=== PATIENT | female | born 1945 | race Caucasian/White ===

== ENCOUNTER 2016-12-27 15:07 | Inpatient (IN) ==
[2016-12-27 15:37] LABS: Basophils % 0.3 %; Eosinophils # 0.2 K/mcL (0.0-0.6); Hematocrit 37.7 % (35.3-44.9); Immature Granulocytes % 0.2 % (0-4); Lymphocytes # 2.2 K/mcL (0.6-4.6); Lymphocytes % 36.2 %; Mean Corpuscular HGB Conc 34.5 g/dL (31.6-35.5); Mean Corpuscular Hemoglobin 29.5 pg (28.0-33.3); Mean Corpuscular Volume 85.7 fL (83.0-100.0); Mean Platelet Volume 10.2 fL (9.4-12.4); Monocytes # 0.5 K/mcL (0.0-1.3); Monocytes % 8.1 %; Neutrophils # 3.2 K/mcL (1.6-8.9); Platelet Count 153 K/mcL (140-400); Red Cell Distribution Width 12.1 % (11.5-14.5); Segmented Neutrophils % 52.2 %
[2016-12-27] MEDS ORDERED: *HR* Ticagrelor 90 MG TABLET PO ONE (15:38)
--- NOTE | 2016-12-27 15:38 | Emergency Department Note ---
Disposition Clinical Impression: ST elevation myocardial infarction (STEMI) Qualifiers: Involved coronary artery: LAD coronary artery Qualified Code(s): I21.02 - ST elevation (STEMI) myocardial infarction involving left anterior descending coronary artery Disposition: Admitted As Inpatient Condition: Fair Chest Pain HPI - General Chief Complaint: ED Chest Pain Stated Complaint: chest pain Time Seen by Provider: 12/27/16 15:16 Source: patient Limitations: no limitations, age Vital Signs Reviewed: Yes Nursing Notes Reviewed: Yes - History of Present Illness Pt complaint: chest pain Onset (ago): hour(s) (2) Duration: constant Onset: during rest Pain Location: substernal Severity scale (1-10): 9 Quality: heaviness Pain Radiation: LUE, neck, jaw/teeth Improves with: nothing Worsens with: nothing Associated symptoms: Reports: nausea, sense of impending doom Treatments prior to arrival chest pain: aspirin - Related Data Home Medications Medication Instructions Recorded Confirmed Albuterol Neb [Proventil Neb] 2.5 mg IH Q6H PRN 12/27/16 12/27/16 Albuterol Sulfate [Proair Hfa] 2 puff IH Q4-6H PRN 12/27/16 12/27/16 Budesonide/Formoterol 80/4.5 2 puff IH BID PRN 12/27/16 12/27/16 [Symbicort 80/4.5] Bupropion HCl [Wellbutrin Xl] 300 mg PO DAILY 12/27/16 12/27/16 Dicyclomine [Bentyl] 40 mg PO QID 12/27/16 12/27/16 Fluticasone Propionate Nasal 50 mcg NS DAILY PRN 12/27/16 12/27/16 [Flonase] Levothyroxine [Synthroid] 224 mcg PO QAM 12/27/16 12/27/16 Loratadine [Claritin] 10 mg PO DAILY PRN 12/27/16 12/27/16 Omeprazole [PriLOSEC] 20 mg PO DAILY PRN 12/27/16 12/27/16 Rivaroxaban [Xarelto] 20 mg PO DAILY 12/27/16 12/27/16 Sotalol [Betapace] 80 mg PO Q12HR 12/27/16 12/27/16 Venlafaxine XR (24 HR) [Effexor XR] 150 mg PO DAILY 12/27/16 12/27/16 Zolpidem [Ambien] 5 mg PO HS 12/27/16 12/27/16 Allergies Allergy/AdvReac Type Severity Reaction Status Date / Time Amoxicillin Allergy Rash Verified 10/12/15 09:03 clavulanic acid Allergy Rash Verified 10/12/15 09:03 [From Augmentin] [id number] Reductase Allergy Rash Verified 10/12/15 09:03 Inhibitor [Statins] Sulfa (Sulfonamide Allergy Rash Verified 10/12/15 09:03 Antibiotics) amlodipine [From Norvasc] AdvReac Rash Verified 10/12/15 09:03 latex AdvReac Rash Verified 10/12/15 09:03 All systems ED: reviewed and negative except as stated. Constitutional: Denies: fever, chills Respiratory: Denies: cough Neurological: Denies: headache Chest Pain PMH - Past Medical History Medical history: Reports: asthma, atrial fibrillation, diabetes, GERD, hypertension, thyroid disease Surgical history: Reports: appendectomy, cataract, cholecystectomy, orthopedic, other, sinus surgery, RAE/BSO Psychiatric history: Reports: anxiety, depression - Social History Smoking Status: Current every day smoker Alcohol use: Reports: none Drug use: Reports: none Physical Exam - General Limitations: no limitations General appearance: alert, in distress - Head Head exam: atraumatic, normocephalic, normal inspection - Eye Eye exam: Present: normal appearance, PERRL, EOMI - Expanded Eye Exam Pupils: Left: reactive - ENT ENT exam: normal exam, normal oropharynx, mucous membranes moist - Expanded ENT Exam External ear exam: Present: normal external inspection Mouth exam: Present: normal external inspection Teeth exam: Present: normal inspection Throat exam: Present: normal inspection - Neck Neck exam: Present: normal inspection, full ROM, trachea midline - Chest Chest inspection: Present: normal inspection, symmetric chest wall rise - Respiratory Respiratory exam: Present: normal lung sounds bilaterally - Cardiovascular Cardiovascular exam: Present: tachycardia, irregular rhythm - Abdominal Exam Abdominal exam: Present: soft, Non-Tender. Absent: tenderness, distention, guarding, rebound, rigidity - Extremities Exam Extremities exam: Present: normal inspection, full ROM. Absent: tenderness, pedal edema - Expanded Upper Extremity Exam Shoulder exam: Present: normal inspection, full ROM Arm exam: Present: normal inspection, full ROM Elbow exam: Present: normal inspection, full ROM Forearm/Wrist exam: Present: normal inspection, full ROM Hand exam: Present: normal inspection, full ROM Vascular exam: Normal: capillary refill, radial pulse - Expanded Lower Extremity Exam Hip/Pelvis exam: Present: normal inspection, full ROM Upper leg exam: Present: normal inspection, full ROM Knee exam: Present: normal inspection, full ROM Lower leg exam: Present: normal inspection, full ROM Ankle exam: Present: normal inspection, full ROM Foot/toe exam: Present: normal inspection, full ROM Neurovascular/Tendon exam: Absent: motor deficit, sensory deficit, tendon deficit - Back Exam Back exam: Present: normal inspection, full ROM. Absent: tenderness - Neurological Exam Neurological exam: Present: alert, oriented X3 - Expanded Neurological Exam Patient oriented to: Present: person, place, time Coma Scale Eye Opening: Spontaneous Coma Scale Motor Response: Obeys Commands Coma Scale Verbal Response: Oriented Coma Scale Total: 15 - Psychiatric Psychiatric exam: Present: normal affect, normal mood - Skin Skin exam: Present: warm, dry, intact, normal color Course Vital Signs Temperature 97.7 F 12/27/16 15:10 Pulse Rate 143 12/27/16 15:10 Respiratory Rate 16 12/27/16 15:10 Blood Pressure 154/72 12/27/16 15:10 O2 Sat by Pulse Oximetry 96 12/27/16 15:10 Temperature 96.9 F L 12/28/16 11:53 Pulse Rate 54 12/28/16 11:46 Respiratory Rate 12 12/28/16 11:46 Blood Pressure 163/73 12/28/16 11:46 O2 Sat by Pulse Oximetry 97 12/28/16 11:46 Oxygen Delivery Oxygen Delivery Nasal Cannula Chest Pain - Differential Diagnosis Likely: stable angina, unstable angina pectoris, atypical chest pain, st elevation myocardial infraction, chest pain - Medical Records Medical records reviewed: Yes I reviewed the patient's medical records. - Lab Data Lab results reviewed: Yes I reviewed the patient's lab results. Result diagrams: 12/28/16 03:13 12/28/16 03:13 Lab Results 12/27/16 12/27/16 12/27/16 Range/Units 15:20 15:20 15:20 WBC 6.1 (4.3-11.1) K/mcL RBC 4.40 (3.82-4.97) M/mcL Hgb 13.0 (11.5-15.4) g/dL Hct 37.7 (35.3-44.9) % MCV 85.7 (83.0-100.0) fL MCH 29.5 (28.0-33.3) pg MCHC 34.5 (31.6-35.5) g/dL RDW 12.1 (11.5-14.5) % Plt Count 153 (140-400) K/mcL MPV 10.2 (9.4-12.4) fL Immature Gran % 0.2 (0-4) % Seg Neutrophils % 52.2 % Lymphocytes % 36.2 % Monocytes % 8.1 % Eosinophils % 3.0 % Basophils % 0.3 % Neutrophils # 3.2 (1.6-8.9) K/mcL Lymphocytes # 2.2 (0.6-4.6) K/mcL Monocytes # 0.5 (0.0-1.3) K/mcL Eosinophils # 0.2 (0.0-0.6) K/mcL Basophils # 0.0 (0.0-0.2) K/mcL PT 13.3 H (9.4-12.1) Seconds INR 1.2 APTT 31.9 (26.0-36.0) Seconds Sodium 141 (136-145) mEq/L Potassium 3.7 (3.5-4.5) mEq/L Chloride 107 (98-109) mEq/L Carbon Dioxide 24 (19-29) mEq/L BUN 11 (7-20) mg/dL Creatinine 0.82 (0.57-1.11) mg/dL Est GFR ( Amer) > 60 (> 60) Est GFR (Non-Af Amer) > 60 (> 60) BUN/Creatinine Ratio 13 (6-26) Glucose 193 H (70-99) mg/dL Calculated Osmolality 297 (280-300) Calcium 9.5 (8.6-10.8) mg/dL Troponin I (0-0.03) ng/mL 12/27/16 Range/Units 15:20 WBC (4.3-11.1) K/mcL RBC (3.82-4.97) M/mcL Hgb (11.5-15.4) g/dL Hct (35.3-44.9) % MCV (83.0-100.0) fL MCH (28.0-33.3) pg MCHC (31.6-35.5) g/dL RDW (11.5-14.5) % Plt Count (140-400) K/mcL MPV (9.4-12.4) fL Immature Gran % (0-4) % Seg Neutrophils % % Lymphocytes % % Monocytes % % Eosinophils % % Basophils % % Neutrophils # (1.6-8.9) K/mcL Lymphocytes # (0.6-4.6) K/mcL Monocytes # (0.0-1.3) K/mcL Eosinophils # (0.0-0.6) K/mcL Basophils # (0.0-0.2) K/mcL PT (9.4-12.1) Seconds INR APTT (26.0-36.0) Seconds Sodium (136-145) mEq/L Potassium (3.5-4.5) mEq/L Chloride (98-109) mEq/L Carbon Dioxide (19-29) mEq/L BUN (7-20) mg/dL Creatinine (0.57-1.11) mg/dL Est GFR ( Amer) (> 60) Est GFR (Non-Af Amer) (> 60) BUN/Creatinine Ratio (6-26) Glucose (70-99) mg/dL Calculated Osmolality (280-300) Calcium (8.6-10.8) mg/dL Troponin I 0.01 (0-0.03) ng/mL - Radiology Data Radiology results reviewed: Yes I reviewed the patient's radiology results. - EKG Data EKG attestation: Yes I reviewed and interpreted this EKG. Rate: tachycardia Rhythm: A.Fib ST segment depression in: v4, v5 Interpretation: acute MD Critical Care Time Critical Care Time: Yes Total Critical Care Time: 35 Attestation: Critical care performed: Time is exclusive of separately billable procedures. Time includes: direct patient care, patient reassessment, coordination of patient care, interpretation of data (laboratory data, radiology data, and respiratory data), review of patient's medical records, medical consultation and documentation of patient care. Procedures included in critical care time: Procedures excluded from critical care time:
[2016-12-27] MEDS ORDERED: Verapamil 5 MG/2 ML VIAL ONE (15:39)
[2016-12-27] MEDS ORDERED: *HR* Heparin 5,000 UNIT/ML VIAL IVP ONE (15:39)
[2016-12-27] MEDS ORDERED: *HR* Heparin 10,000 UNIT/10 ML VIAL ONE (15:40)
[2016-12-27] MEDS ORDERED: Nitroglycerin 1,000 MCG/10 ML VIAL IV ONE (15:40)
[2016-12-27] MEDS ORDERED: Heparin 1,000 UNITS/500 mL NS 500 ML ONE (15:40)
[2016-12-27] MEDS: Nitroglycerin 0.4 MG TAB.SUBL SL PRN ×2 (15:40→15:45)
[2016-12-27] MEDS ORDERED: 0.9 % Sodium Chloride 1,000 ML ONE ×2 (15:40→15:44)
[2016-12-27 15:43] LABS: INR 1.2; Prothrombin Time 13.3 Seconds (9.4-12.1)
[2016-12-27 15:45] LABS: Activated Partial Thrombo Time 31.9 Seconds (26.0-36.0)
[2016-12-27 15:50] LABS: BUN/Creatinine Ratio 13 (6-26); Blood Urea Nitrogen 11 mg/dL (7-20); Calcium 9.5 mg/dL (8.6-10.8); Carbon Dioxide 24 mEq/L (19-29); Chloride 107 mEq/L (98-109); Glucose 193 mg/dL (70-99); Osmolality,Calculated 297 (280-300); Potassium 3.7 mEq/L (3.5-4.5); Sodium 141 mEq/L (136-145); eGFR For African Americans > 60 (> 60); eGFR For Non-African Americans > 60 (> 60)
[2016-12-27] MEDS ORDERED: *HR* Midazolam HCl 2 MG/2 ML VIAL ONE (15:59)
[2016-12-27] MEDS ORDERED: *HR* FentaNYL (PF) 100 MCG/2 ML VIAL ONE (16:00)
--- NOTE | 2016-12-27 16:02 | Pre-Sedation Evaluation ---
Pre-sedation evaluation - Pre-sedation checklist Date of procedure: 12/27/16 Procedure: [facility] Recent Vitals: Last Vital Signs Temp 97.7 F 12/27/16 15:10 Pulse 111 12/27/16 15:45 Resp 22 12/27/16 15:52 BP 128/86 12/27/16 15:52 Pulse Ox 98 12/27/16 15:45 H&P (including ROS) documented in medical record: Yes Previous reaction to sedatives/anesthetics: No Dietary Status: NPO after Midnight Dentition: dentures removed ASA Classification *see protocol: CLASS II-Mild systemic disease, E-EMERGENCY- Add to any of the above to indicate emergent Plan of Care: Pt appropriate candidate for procedure/moderate/conscious sedation , Risks/benefits of procedure/sedation discussed w/ patient/family
--- NOTE | 2016-12-27 16:43 | Cardiology History & Physical ---
Date of Encounter: 12/27/16 Time of Encounter: 16:40 Assessment and Plan (1) ST elevation myocardial infarction (STEMI) Status: Acute The assessment and plan as outlined above was discussed with the patient and/or family members who expressed understanding and agreement. All questions were answered. Qualifiers: Involved coronary artery: LAD coronary artery Qualified Code(s): I21.02 - ST elevation (STEMI) myocardial infarction involving left anterior descending coronary artery History of Present Illness Chief complaint: chest pain HPI: Ms. Kong is a 71 year old female with history of PAF on sotalol and xarelto presents with sudden onset severe retrosternal chest pressure radiating into her jaw and left arm associated with dyspnea. She presented to ED with finding of anterior current of injury with no improvement of symptoms with aspirin and NTG. She was emergently taken to the cardiac cath rn. Past Med Surg Social Fam HX - Past Medical History Medical history: asthma, atrial fibrillation, diabetes, GERD, hypertension, thyroid disease Psychiatric history: anxiety, depression - Past Surgical History Surgical History: appendectomy, cataract, cholecystectomy, orthopedic, other, sinus surgery, RAE/BSO - Social History Smoking Status: Current every day smoker Smokeless Tobacco Status: No Alcohol use: none Drug use: none Medications and Allergies Allergies Amoxicillin Allergy (Verified 10/12/15 09:03) Rash clavulanic acid [From Augmentin] Allergy (Verified 10/12/15 09:03) Rash [id number] Reductase Inhibitor [Statins] Allergy (Verified 10/12/15 09:03) Rash Sulfa (Sulfonamide Antibiotics) Allergy (Verified 10/12/15 09:03) Rash amlodipine [From Norvasc] Adverse Reaction (Verified 10/12/15 09:03) Rash latex Adverse Reaction (Verified 10/12/15 09:03) Rash All Systems Review: A 10-system review of systems was performed and is negative for pertinent findings except as documented above in the HPI. Physical Examination Vital Signs, Last 4 Hours Temp Pulse Resp BP Pulse Ox 12/27/16 15:52 22 128/86 12/27/16 15:45 111 22 128/86 98 12/27/16 15:38 96 12/27/16 15:29 106 146/92 12/27/16 15:10 97.7 F 143 16 154/72 96 Results 12/27/16 15:20 12/27/16 15:20 Lab Results 12/27/16 12/27/16 12/27/16 15:20 15:20 15:20 WBC 6.1 Hgb 13.0 Hct 37.7 Plt Count 153 INR 1.2 APTT 31.9 Sodium 141 Potassium 3.7 Chloride 107 Carbon Dioxide 24 BUN 11 Creatinine 0.82 Glucose 193 H Calcium 9.5 Troponin I 12/27/16 15:20 WBC Hgb Hct Plt Count INR APTT Sodium Potassium Chloride Carbon Dioxide BUN Creatinine Glucose Calcium Troponin I 0.01
--- NOTE | 2016-12-27 16:57 | Invasive Diagnostic Lab Proc ---
Name: Bruna Kong Date of Study: 12/27/2016 Date: 1945 Ht: 68.1in Medical Record#: [id number] Age: 71 Wt: 174.17lb Gender: Female BSA: 1.93 Order #: [id number] BMI: 26.4 Physicians Procedure Physician: Thomas Schilling MD, [facility] Referring MD: Referring MD: Staff Name Position Time In Sites, Kenia RT (R) Monitor 03:50 PM Kenia Liz RT (R) Scrub 03:50 PM Aye Edge RN Stonework Supervisor 03:50 PM Veena Smith RN Nurse 03:51 PM Indications Indication STEMI Procedures Performed Procedure PRQ CARD REVASC ID 1 VSL L HRT ARTERY/VENTRICLE ANGIO Pre-Procedure Checklist Informed consent is complete signed and on chart. H\\T\\P is on chart. ID band is on and ID verified with patient. Patient NPO for procedure The procedure was described for the patient and questions were answered. Blood Pressure: 163/65 ECG is on chart. Rhythm: Atrial Fibrillation Plan of Care Patient will tolerate the procedure without complications. Adequate level of comfort will be maintained. Hemodynamics will remain stable Patient will recover from procedure without complications. Respiratory function will be maintained. Cardiac rhythm will remain stable. Patient temperature will be maintained. Patient and/or family have verbalized understanding of the procedure. Patient Education Chief Complaint/Reason for Test: Cardiac Cath Developmental Category: Geriatric (65+ years) Developmentally Appropriate for Age: Yes Learning Barriers: None Education Needs: Procedure Education Method: Verbal Information Taught: Cardiac Cath Educational Evaluation: Able to repeat information Intravenous Access Time IV Size Location DC'd Fluid/Drip Rate Units RN 03:49 PM 20g 1 1/4" Patent On Arrival Rt Antecubital 0.9NaCl 25 ml/hr Aye Edge RN 03:56 PM 18g 1 1/4" Patent On Arrival Rt Wrist Allergies EGGS AUGMENTIN SULFA, LATEX Xsusxjn-Wqu-Vbw Reductase Inhibitor clavulanic acid Amoxicillin amlodipine Vital Signs Time BP (mmHg) HR (bpm) O2 Sat. RR (bpm) LOC 03:57 PM 114 / 55 122 98 % 7 5 = Fully awake and oriented or at pre-proc level 03:58 PM 114 / 55 130 % 12 04:03 PM 163 / 65 125 97 % 18 04:08 PM 124 / 101 119 99 % 11 04:13 PM 111 / 73 112 93 % 17 04:18 PM 107 / 70 110 96 % 15 04:23 PM 143 / 67 114 98 % 14 04:28 PM 147 / 73 95 98 % 18 04:33 PM 113 / 88 107 98 % 12 04:38 PM 127 / 80 104 97 % 25 Procedural Medications Time Medication Dose Units Method Given By 03:55 PM 0.9NaCl 25 ml/hr Intravenous 04:01 PM Oxygen 2 L/min nasal cannula Aye Edge RN 04:06 PM Versed 2 mg Intravenous Aye Edge RN 04:06 PM Fentanyl 50 mcg Intravenous Aye Edge RN 04:07 PM Lidocaine 2% 1 ml Subcutaneous Thomas Schilling MD, FACC 04:09 PM Nitroglycerin 200 mcg Verapamil 2.5 mg Intraarterial Thomas Schilling MD, FACC 04:27 PM Nitroglycerin 200 mcg Intracoronary Thomas Schilling MD 04:34 PM Nitroglycerin 200 mcg Intracoronary Thomas Schilling MD ASA Classification: CLASS II- Mild systemic disease (i.e. well-controlled diabetes, hypertension, asthma, cigarette smoking) Dyan Score Preprocedure Postprocedure Activity 2- Moves 4 extremities sustained head lift Activity 2- Moves 4 extremities sustained head lift Circulation 2- SBP +/= 20 points of pre-anesthetic level Circulation 2- SBP +/= 20 points of pre-anesthetic level Consciousness 2- Awake and alert oriented x 3 Consciousness 2- Awake and alert oriented x 3 O2 Saturation 2- Able to maintain O2 satruation of 92% on room air O2 Saturation 2- Able to maintain O2 satruation of 92% on room air Respiratory 2- Able to deep breathe and cough well Respiratory 2- Able to deep breathe and cough well Total Score 10 Total Score 10 Contrast Agent: Isovue Diagnostic Contrast: 135 ml Total Contrast: 135 ml Fluoro Dose: 480 mGy Activated Clotting Time Time Seconds to Clot 04:28 PM 366 Procedure Log Time Note Enter By 03:45 PM CathStat 03:50 PM Kenia Cordova RT (R) Position: Monitor Time in: 15:50 tsites 03:50 PM Kenia Liz RT (R) Position: Scrub Time in: 15:50 tsites 03:51 PM Aye Edge RN Position: Stonework Supervisor Time in: 15:50 tsites 03:51 PM Sarah, Veena RN Position: Nurse Time in: 15:51 tsites 03:51 PM Patient charges- Angio tray pack, Navilyst 3mm J, Pulse Oximetry and ACIST tubing and transducer tsites 03:54 PM Pt arrived to laborer cook house 2 at 15:54 tsites 03:55 PM Patient arrived at 15:55 with 0.9NaCl Intravenous drip @ 25 ml/hr tsites 03:57 PM Vitals capture started with the following parameters, Patient=Adult, Interval=5 min, Initial Ulpdescp=956 mmHg, Deflation Rate=5 mmHg, Cuff placed on Left Arm 03:58 PM PM=245 bpm, OSVF=430/55 mmhg, Resp=12 B/min, Comment=Afib 03:59 PM Case Delayed No tsites 04:01 PM Hair removed from procedure site in procedure lab using clippers. Right wrist, right groin prepped with Chloraprep by Kenia Cordova (Micaela) then patient draped. Skin intact. tsites 04:01 PM Physican responded and notified patient is ready 16:01 tsites 04:01 PM ASA Class CLASS II- Mild systemic disease (i.e. well-controlled diabetes, hypertension, asthma, cigarette smoking) tsites 04:01 PM Time: 16:01 Oxygen on at 2 L/min per nasal cannula by Aye Edge RN tsites 04:03 PM PU=508 bpm, ENVL=545/65 mmhg, SpO2=97.0 %, Resp=18 B/min 04:04 PM Recorded ECG: JJ=184 Condition=Condition 1 04:05 PM Pressure channel 1 zeroed. 04:06 PM Time: 16:06 Versed 2 mg Intravenous Given by Aye Edge RN tsites 04:07 PM Time: 16:06 Fentanyl 50 mcg Intravenous Given by Aye Edge RN tsites 04:07 PM Time out performed according to hospital policy tsites 04:07 PM Time: 16:07 1 ml Lidocaine 2% to right radial Subcutaneous Given by Thomas Schilling MD, [facility] tsites 04:07 PM Procedure start 16:07 tsites 04:08 PM TZ=114 bpm, SFHW=781/101 mmhg, SpO2=99.0 %, Resp=11 B/min, Comment=Afib 04:08 PM Access obtained by percutaneous puncture. 5Fr 10cm Terumo Glidesheath sheath placed in right Radial artery. [id number] tsites 04:09 PM Time: 16:09 Patient given 200 mcg Nitroglycerin, and 2.5 mg Verapamil Intraarterial by Thomas Schilling MD, [facility] tsites 04:10 PM Clinical Presentation: STEMI or equivalent tsites 04:11 PM 5Fr TIG catheter inserted over the wire [facility] tsites 04:11 PM 0.035 260cm Navilyst 3mmJ wire [id number] tsites 04:11 PM LCA angiography performed in multiple views. tsites 04:11 PM Recorded Pressure: Ao, HB=519, Condition=Condition 1 (Aorta) Ao 91/65/77 04:12 PM RCA angiography performed in multiple views. tsites 04:12 PM Recorded Pressure: Ao, UC=172, Condition=Condition 1 (Aorta) Ao 37/21/29 04:12 PM wire reinserted catheter removed tsites 04:13 PM Coronary Dominance: right tsites 04:13 PM WI=456 bpm, YSGG=617/73 mmhg, SpO2=93.0 %, Resp=17 B/min, Comment=Afib 04:13 PM Lesion found in Proximal LAD. Pre Stenosis: 100 Pre RUDDY Flow: 0: No Flow/No perfusion tsites 04:13 PM Lesion found in Mid RCA. Pre Stenosis: 40 Pre RUDDY Flow: tsites 04:13 PM Proximal Left Anterior Descending Coronary Artery with 100% stenosis. If graft is supplying this territory, 0 % stenosis. tsites 04:14 PM Right Coronary, Right Posterior Descending Arteries with Right Posterolateral and Acute Marginal branches with 40 % stenosis. If graft is supplying this area, 0 % stenosis tsites 04:14 PM PCI Status Emergency tsites 04:14 PM PCI Indication: Immediate PCI for STEMI tsites 04:14 PM PCI lesion in Proximal LAD. tsites 04:14 PM Inflation device was opened. tsites 04:14 PM 6Fr RBL 3.5 Convey guide catheter was used to cannulate the PCI vessel successfully. reused? No tsites 04:14 PM .014 PT Graphix 182cm guide wire across target lesion- successful. reused? No tsites 04:15 PM Coronary Dominance: Co-dominant tsites 04:16 PM 2.0 mm x 20 mm Emerge Monorail balloon across target lesion- successful. reused? No tsites 04:18 PM Balloon inflated @ 8 baldomero for 10 seconds tsites 04:18 PM Balloon inflated @ 10 baldomero for 12 seconds tsites 04:18 PM Pressure channel 1 zeroed. 04:18 PM VR=775 bpm, RYOF=140/70 mmhg, SpO2=96.0 %, Resp=15 B/min 04:19 PM Recorded Pressure: Ao, HR=96, Condition=Condition 1 (Aorta) Ao 120/90/103 04:19 PM Act drawn tsites 04:19 PM Balloon inflated @ 8 baldomero for 10 seconds tsites 04:20 PM Balloon inflated @ 14 baldomero for 5 seconds tsites 04:20 PM Balloon inflated @ 14 baldomero for 12 seconds tsites 04:21 PM Balloon inflated @ 14 baldomero for 7 seconds tsites 04:22 PM Balloon catheter removed intact. tsites 04:23 PM LJ=223 bpm, GOBG=041/67 mmhg, SpO2=98.0 %, Resp=14 B/min, Comment=Afib 04:24 PM act drawn tsites 04:25 PM 2.25mm x 38mm Synergy drug-eluting stent across target lesion- successful Lot #[id number] tsites 04:26 PM Stent deployed @ 11 baldomero for 15 seconds tsites 04:27 PM Time: 16:27 Nitroglycerin 200 mcg Intracoronary Given by Thomas Schilling MD tsites 04:28 PM At 16:28 the ACT was 366 seconds. tsites 04:28 PM HR=95 bpm, JPGU=044/73 mmhg, SpO2=98.0 %, Resp=18 B/min, Comment=Afib 04:29 PM Stent delivery system removed intact. tsites 04:30 PM 2.25mm x 12mm Synergy drug-eluting stent across target lesion- successful Lot #[id number] tsites 04:33 PM Stent deployed @ 11 baldomero for 15 seconds tsites 04:33 PM EZ=275 bpm, KDUM=852/88 mmhg, SpO2=98.0 %, Resp=12 B/min 04:33 PM Stent balloon reinflated @ 11 baldomero for 4 seconds tsites 04:34 PM Time: 16:34 Nitroglycerin 200 mcg Intracoronary Given by Thomas Schilling MD tsites 04:35 PM Guide wire removed intact. tsites 04:35 PM Stent delivery system removed intact. tsites 04:35 PM Lesion found in Mid Circumflex. Pre Stenosis: 65 Pre RUDDY Flow: tsites 04:36 PM Circumflex, Obtuse Marginal, Left Posterior Descending, and Left Posterolateral Coronary Arteries with 65 % stenosis. If graft is supplying this area, 0 % stenosis tsites 04:36 PM Guide catheter removed intact. tsites 04:36 PM 5Fr Pigtail catheter inserted over the wire [facility] tsites 04:36 PM Catheter selectively placed in left ventricle tsites 04:37 PM Recorded Pressure: LV, RS=550, Condition=Condition 1 (Left Ventricle) LV 134/15/26 04:37 PM Bolus angiogram of left Ventricle complete: 10 ml/sec for a total of 30 mls tsites 04:38 PM Recorded Pressure: LV, Ao, QY=309, Condition=Condition 1 (Left Ventricle) LV 137/17/51, (Aorta) Ao 152/88/115 04:38 PM RT=840 bpm, OGXR=083/80 mmhg, SpO2=97.0 %, Resp=25 B/min 04:38 PM Catheter removed tsites 04:39 PM Procedure completed at 16:39 tsites 04:39 PM Sign out completed: Radiation Dose 480 mGy Fluoro Time: 7.5 Isovue 370 - 500ml contrast 135 ml given by Thomas Schilling MD, [facility]. Complications: NoneCardiac Rehab Consult needed: YesConfirmed administered medications: Yes tsites 04:39 PM Isovue 370 - 500ml,1 Bottle(s) used. tsites 04:39 PM Arterial sheath pulled, Vasc Band closure device used and was Successful S/N. tsites 04:40 PM 14 ml air in Vasc Band. tsites 04:40 PM Post ECG Atrial Fibrillation tsites 04:40 PM Post Blood Pressure 127/80 tsites 04:40 PM 16:40 Post Pulses Bilateral DP \\T\\ PT 2+ tsites 04:40 PM Information taught Cardiac Cath and PCI tsites 04:40 PM Education needs Procedure, Plan of Care, and Responsibilities of Patient in Care tsites 04:40 PM Learning barriers :None tsites 04:41 PM Education Methods Verbal tsites 04:41 PM Education evaluation Able to repeat information tsites 04:41 PM Site status No bleeding/hematoma - Rt Wrist as reported by Kenia Liz RT (R) at 16:41 tsites 04:41 PM Plavix, Effient or Brilinta given Yes in ER tsites 04:43 PM Patient out of room: 16:41 tsites 04:43 PM Complications: None tsites 04:46 PM Report given to jewel VARMA Pt taken to ICU Room #9. 16:45 tsites 04:46 PM Delay to floor No tsites Complications Complication None None Hemodynamics Pressures Site Systolic/A Wave Diastolic/V Wave Mean AO 91 65 77 AO 37 21 29 AO 120 90 103 LV 134 15 26 LV 137 17 51 AO 152 88 115 Post Procedure Information Blood Pressure: 127/80 mmHg Rhythm: Atrial Fibrillation Post procedural instructions were given Closure Device Time Device Success/Fail 12/27/2016 4:46:00 PM Mechanical Compression Successful Site Checks Time Location Status Staff Sheath In? Note 04:41 PM Rt Wrist No bleeding/hematoma Kenia Liz RT (R) Pulses Time Site Pre-Procedure Post-Procedure Note 12/27/2016 3:55:00 PM Bilateral DP \\T\\ PT 1+ 12/27/2016 3:56:00 PM Rt Radial 2+ 4:40:00 PM Bilateral DP \\T\\ PT 2+ Updated by Kenia Cordova RT (R) on 12/27/2016 4:52:44 PM Kenia Cordova RT electronically signed on 12/27/2016 4:53:14 PM with status of Final
[2016-12-27] MEDS ORDERED: *HR* Atropine Sulfate 1 MG/10 ML SYRINGE ONE (19:37)
[2016-12-27] MEDS ORDERED: Budesonide/Formoterol 80/4.5 MDI IH PRN (20:42)
[2016-12-27] MEDS ORDERED: Albuterol 2.5 MG/3 ML NEBULIZER IH PRN (20:55)
[2016-12-28 03:35] LABS: Basophils % 0.5 %; Eosinophils # 0.2 K/mcL (0.0-0.6); Eosinophils % 3.2 %; Hematocrit 35.7 % (35.3-44.9); Hemoglobin 12.2 g/dL (11.5-15.4); Immature Granulocytes % 0.2 % (0-4); Lymphocytes # 2.4 K/mcL (0.6-4.6); Lymphocytes % 38.3 %; Mean Corpuscular HGB Conc 34.2 g/dL (31.6-35.5); Mean Corpuscular Hemoglobin 29.3 pg (28.0-33.3); Mean Corpuscular Volume 85.8 fL (83.0-100.0); Mean Platelet Volume 10.3 fL (9.4-12.4); Monocytes # 0.5 K/mcL (0.0-1.3); Monocytes % 8.5 %; Neutrophils # 3.1 K/mcL (1.6-8.9); Platelet Count 144 K/mcL (140-400); Red Blood Count 4.16 M/mcL (3.82-4.97); Red Cell Distribution Width 12.1 % (11.5-14.5); Segmented Neutrophils % 49.3 %
[2016-12-28 03:46] LABS: BUN/Creatinine Ratio 13 (6-26); Blood Urea Nitrogen 10 mg/dL (7-20); Calcium 8.8 mg/dL (8.6-10.8); Carbon Dioxide 23 mEq/L (19-29); Chloride 108 mEq/L (98-109); Glucose 132 mg/dL (70-99); Osmolality,Calculated 291 (280-300); Potassium 3.7 mEq/L (3.5-4.5); Sodium 140 mEq/L (136-145); eGFR For African Americans > 60 (> 60); eGFR For Non-African Americans > 60 (> 60)
[2016-12-28] MEDS: Aspirin 81 MG TAB.CHEW PO SCH (07:58)
[2016-12-28] MEDS: Venlafaxine XR (24 HR) 150 MG CAP.ER.24H PO SCH (07:59)
[2016-12-28] MEDS: BuPROPion XL (24 HR) 150 MG TABLET PO SCH (07:59)
--- NOTE | 2016-12-28 08:18 | Invasive Diagnostic Lab ---
Name: Bruna Kong Date of Study: 12/27/2016 Date: 1945 Ht: 173.0 cm /68.1 in Medical Record#: [id number] Age: 71 Wt: 79. kg / 174.17 lb Account/Order#: [id number] Gender: Female BSA: 1.93 Order #: [id number] Fluoro Dose: 480 mGy BMI: 26.4 Procedure Physician: Thomas Schilling MD, [facility] Referring MD: Referring MD: Procedures Performed: PCI of Acute OR Stent w/ PTCA Drug Eluting Stent LEFT HEART CATH Indications: STEMI Impressions: There is severe one vessel coronary artery disease. The left ventricle is normal and has normal contractility EF 55% Patient had successful PTCA/Drug-Eluting Stent placement in the proximal-mid LAD. LVH Recommendations: Optimal medical therapy of patient's disease. Aggressive risk factor modification. Patient being referred for cardiac rehab. History/Risk Factors: Asthma GERD Diabetes Hypertension Procedure Access obtained in the right Radial artery by percutaneous puncture Patient had successful PTCA/Drug-Eluting Stent placement in the proximal LAD. Complications: None, None Contrast: Isovue 135ml Closure Device: Mechanical Compression Hemodynamics: Pressures Site Systolic/ A Wave Diastolic/ V Wave End Diastolic/ Mean HR AO 91 65 77 112 AO 37 21 29 125 AO 120 90 103 96 LV 134 15 26 110 LV 137 17 51 103 AO 152 88 115 100 LV Ventriculography Ejection Method: LV Gram Ejection Fraction: 55% Wall Motion: MCCRACKEN Anterobasal Normal Anterolateral Normal Apical: Normal Inferoapical Normal Inferobasal Normal Coronary Dominance: Right Lesion Findings/Interventions * Left Main Coronary Artery The LMCA is angiographically free of disease. * Left Anterior Descending There is a 40 mm long, 100% stenosis in the Proximal - mid LAD. The lesion has a RUDDY flow of 0 and has thrombus present. An intervention was performed on the Proximal LAD with a final stenosis of 0%. There were no lesion complications. The final RUDDY flow was 3. * Circumflex There is a 65% stenosis in the Mid Circumflex. * Right Coronary Artery There is a 40% stenosis in the Mid RCA. Interventional Device(s) Vessel Segment Type Name Diameter (mm) Length (mm) Proximal LAD Balloon Emerge Monorail 2 20 Proximal LAD Drug Eluting Stent Synergy 2.25 38 Proximal LAD Drug Eluting Stent Synergy 2.25 12 Updated by Kenia Cordova, RT (R) on 12/27/2016 4:52:05 PM Thomas Schilling MD, FACC electronically signed on 12/28/2016 8:13:16 AM with status of Final
--- NOTE | 2016-12-28 10:12 | Cardiology Progress Note ---
<Paul Giron - Last Filed: 12/28/16 10:24> Date of Encounter: 12/28/16 Time of Encounter: 10:10 Assessment and Plan (1) ST elevation myocardial infarction (STEMI) Current Visit: Yes Status: Acute Patient arrived to ED at [facility]. JAVI placed in proximal LAD Brilinta loaded in ED and plavix started today. Developed itching, so will switch her to Brilinta tomorrow. ASA Daily Continue Xarelto. Lower Sotalol to 40 mg BID. Qualifiers: Involved coronary artery: LAD coronary artery Qualified Code(s): I21.02 - ST elevation (STEMI) myocardial infarction involving left anterior descending coronary artery (2) A-fib Current Visit: Yes Status: Acute Continue Xarelto. Qualifiers: Atrial fibrillation type: paroxysmal Qualified Code(s): I48.0 - Paroxysmal atrial fibrillation Discussion w patient/family: The assessment and plan as outlined above was discussed with the patient and/or family members who expressed understanding and agreement. All questions were answered. Thank you for involving us in the care of your patient. Please call with any questions. Subjective Principal diagnosis: STEMI overnight Interval history: Patient arrived to [facility] ED with STEMI. SHe has history of A-fib on Sotalol and Xarelto. She is a smoker. No previous CT. Started on plavix overnight but developed itching associated with it. Started on ASA without difficulty. Objective Vital Signs, Last 4 Hours Temp Pulse Resp BP Pulse Ox 12/28/16 10:07 54 12 97 12/28/16 09:16 52 12 146/60 98 12/28/16 08:09 58 12 149/73 96 12/28/16 07:25 97.0 F L General: Conversant, No Apparent Distress HEENT: Atraumatic, Normocephaly, Mucus Membranes Moist Neck: No JVD, Normal carotid pulses Cardiac: Normal S1 and S2, No Murmur, Other (Bradycardic on monitor but NSR) Lungs: Normal Breath Sounds, Other (mild wheezing bilaterally) Neuro: Alert and responsive, No focal deficits noted Abdomen: Soft, Non-Tender Skin: No rashes noted on visualized skin Musculoskeletal: No Chest Wall Tenderness Extremities: No Clubbing, No Cyanosis, No Edema, Normal Pulses Results 12/28/16 03:13 12/28/16 03:13 Lab Results 12/28/16 12/28/16 03:13 03:13 WBC 6.3 Hgb 12.2 Hct 35.7 Plt Count 144 Sodium 140 Potassium 3.7 Chloride 108 Carbon Dioxide 23 BUN 10 Creatinine 0.80 Glucose 132 H Calcium 8.8 - Imaging and Cardiology Echo: pending Cardiac cath: report reviewed Consult Discharge Plan - Plan Referrals: NO,PCP [Primary Care Provider] - - Attending Attestation I examined this patient and my medical decision-making was reviewed with the Resident Physician. I agree with the documented findings, disposition and treatment plan as described except to the extent set forth below. <Beck Del Castillo G - Last Filed: 12/28/16 12:55> Assessment and Plan Discussion w patient/family: The assessment and plan as outlined above was discussed with the patient and/or family members who expressed understanding and agreement. All questions were answered. Thank you for involving us in the care of your patient. Please call with any questions. Objective Vital Signs, Last 4 Hours Temp Pulse Resp BP Pulse Ox 12/28/16 11:53 96.9 F L 12/28/16 11:46 49 12 163/73 97 12/28/16 10:07 54 12 97 12/28/16 09:16 52 12 146/60 98 Results 12/28/16 03:13 12/28/16 03:13 Lab Results 12/28/16 12/28/16 03:13 03:13 WBC 6.3 Hgb 12.2 Hct 35.7 Plt Count 144 Sodium 140 Potassium 3.7 Chloride 108 Carbon Dioxide 23 BUN 10 Creatinine 0.80 Glucose 132 H Calcium 8.8 Attestation Statement - Attestation Attestation: I examined this patient and my medical decision-making was reviewed with the OVERHEAD DISTRIBUTION ENGINEER/PA/Advanced Practice Nurse/Resident Physician. I agree with the documented findings, disposition and treatment plan as described except to the extent set forth below. Pt feels much better today , less sob, no cp, pnd, orthopnea VSS Bradycardia JVD: 6-7 cm Chest: Clear CVS: RRR plan; decrease Sotalol ok for transfer to tele Statin ASA Birlinta ambulate
[2016-12-28] MEDS ORDERED: *HR* Rivaroxaban 10 MG TABLET PO SCH (17:00)
--- NOTE | 2016-12-28 17:08 | Electrocardiograph Report ---
[address] [place], [place] [address] Test Date: 2016-12-28 Pat Name: Bruna Kong Department: 109 Room: [facility] Gender: F Biomedical Service Engineer: : 1945 Requested By: Thomas Schilling Order Number: [id number] Reading MD: Anjali Chaudhary Measurements Intervals [place] Rate: 48 P: -10 IA: 132 QRS: 37 QRSD: 85 T: 84 QT: 487 QTc: 452 Interpretive Statements SINUS BRADYCARDIA WITH OCCASIONAL SUPRAVENTRICULAR PREMATURE COMPLEXES ST DEVIATION AND MODERATE T-WAVE ABNORMALITY, CONSIDER ANTERIOR ISCHEMIA Electronically Signed On 12-28-2016 17:06:44 EST by Anjali Chaudhary
--- NOTE | 2016-12-28 17:13 | Electrocardiograph Report ---
[address] [place], [place] [address] Test Date: 2016-12-27 Pat Name: Bruna Kong Department: 109 Room: [facility] Gender: F Advertising Campaign Manager: : 1945 Requested By: Thomas Schilling Order Number: [id number] Reading MD: Anjali Chaudhary Measurements Intervals [place] Rate: 100 P: [place]: 0 QRS: 53 QRSD: 74 T: 39 QT: 343 QTc: 400 Interpretive Statements ATRIAL FIBRILLATION WITH RAPID VENTRICULAR RESPONSE SEPTAL MYOCARDIAL INFARCTION, OF INDETERMINATE AGE MODERATE T-WAVE ABNORMALITY, CONSIDER ANTEROLATERAL ISCHEMIA Electronically Signed On 12-28-2016 17:11:31 EST by Anjali Chaudhary
--- NOTE | 2016-12-28 17:19 | Electrocardiograph Report ---
[address] [place], [place] [address] Test Date: 2016-12-27 Pat Name: Bruna Kong Department: 104 Room: [facility] Gender: F Exchange Operator: : 1945 Requested By: Black Quan Order Number: [id number] Reading MD: Anjali Chaudhary Measurements Intervals [place] Rate: 116 P: [place]: 0 QRS: 33 QRSD: 106 T: 35 QT: 321 QTc: 390 Interpretive Statements ATRIAL FIBRILLATION WITH RAPID VENTRICULAR RESPONSE ST ELEVATION CONSISTENT WITH INJURY, PERICARDITIS, OR EARLY REPOLARIZATION NONSPECIFIC ST \T\ T-WAVE ABNORMALITY Electronically Signed On 12-28-2016 17:16:54 EST by Anjali Chaudhary
--- NOTE | 2016-12-29 08:24 | Discharge Summary ---
Date of Encounter: 12/29/16 Time of Encounter: 08:17 - Discharge Diagnosis (1) ST elevation myocardial infarction (STEMI) Priority: Primary Status: Acute Qualifiers: Involved coronary artery: LAD coronary artery Qualified Code(s): I21.02 - ST elevation (STEMI) myocardial infarction involving left anterior descending coronary artery (2) A-fib Priority: Primary Status: Chronic Qualifiers: Atrial fibrillation type: paroxysmal Qualified Code(s): I48.0 - Paroxysmal atrial fibrillation - Discharge Medications Prescriptions: Nitroglycerin 0.4 mg SL Q5MIN PRN #25 tab.subl PRN Reason: Chest Pain Aspirin 81 mg PO DAILY #30 tab.chew Guaifenesin [Mucinex] 600 mg PO BID PRN #14 tab.er.12h PRN Reason: Congestion Lisinopril 2.5 mg PO DAILY #30 tablet Ticagrelor [Brilinta] 90 mg PO BID #60 tablet Home Medications: Albuterol Neb [Proventil Neb] 2.5 mg IH Q6H PRN 12/27/16 [History] Albuterol Sulfate [Proair Hfa] 2 puff IH Q4-6H PRN 12/27/16 [History] Budesonide/Formoterol 80/4.5 [Symbicort 80/4.5] 2 puff IH BID PRN 12/27/16 [ History] Bupropion HCl [Wellbutrin Xl] 300 mg PO DAILY 12/27/16 [History] Dicyclomine [Bentyl] 40 mg PO QID 12/27/16 [History] Fluticasone Propionate Nasal [Flonase] 50 mcg NS DAILY PRN 12/27/16 [History] Levothyroxine [Synthroid] 224 mcg PO QAM 12/27/16 [History] Loratadine [Claritin] 10 mg PO DAILY PRN 12/27/16 [History] Omeprazole [PriLOSEC] 20 mg PO DAILY PRN 12/27/16 [History] Rivaroxaban [Xarelto] 20 mg PO DAILY 12/27/16 [History] Sotalol [Betapace] 80 mg PO Q12HR 12/27/16 [History] Venlafaxine XR (24 HR) [Effexor Xr] 150 mg PO DAILY 12/27/16 [History] Zolpidem [Ambien] 5 mg PO HS 12/27/16 [History] Aspirin 81 mg PO DAILY #30 tab.chew 12/29/16 [Rx] Guaifenesin [Mucinex] 600 mg PO BID PRN #14 tab.er.12h 12/29/16 [Rx] Lisinopril 2.5 mg PO DAILY #30 tablet 12/29/16 [Rx] Nitroglycerin 0.4 mg SL Q5MIN PRN #25 tab.subl 12/29/16 [Rx] Ticagrelor [Brilinta] 90 mg PO BID #60 tablet 12/29/16 [Rx] Allergies/Adverse Reactions: Allergies Amoxicillin Allergy (Verified 10/12/15 09:03) Rash clavulanic acid [From Augmentin] Allergy (Verified 10/12/15 09:03) Rash Xugpsch-Cud-Rez Reductase Inhibitor [Statins] Allergy (Verified 10/12/15 09:03) Rash Sulfa (Sulfonamide Antibiotics) Allergy (Verified 10/12/15 09:03) Rash amlodipine [From Norvasc] Adverse Reaction (Verified 10/12/15 09:03) Rash latex Adverse Reaction (Verified 10/12/15 09:03) Rash Procedures/tests Complete & Pending: Procedures Performed prior 72 hours Category Date Time Status ECG 12 lead ECG [ECG] AM 0600 Y 12/28/16 06:00 Completed ECG 12 lead ECG [ECG] Routine Y 12/27/16 16:43 Completed EKG [ECG 12 lead ECG] [ECG] Stat Y 12/29/16 08:16 Ordered EV echocardiogram Routine Y 12/28/16 09:49 Completed Date of admission: 12/27/16 16:10 Primary care physician: PCP NO Consults: 12/27/16 16:43 Consult to Cardiac Rehabilitation-Phase1 [CONS] Routine Comment: Reason for Consult: post op cath Call Completed: Yes Discharging clinician: Richard Welsh Anticipated date of discharge: 12/29/16 - Patient Status Disposition: Home, Self-Care Condition: Fair Functional capacity at discharge: independent ambulation Overall status at discharge: patient is progressing back to baseline - Discharge Instructions Follow Up With: Gary Wilder MD [Partnered Physician] - (Office will call you in next 1 to 2 business days and call and schedule an appt for you in the next 2 weeks.) NO,PCP [Primary Care Provider] - Additional Instructions: RISK FACTORS: STOP SMOKING: If you smoke, STOP. Smoking or tobacco use significantly increases your risk of heart disease because nicotine causes the arteries to narrow or constrict. It also causes fats to stick to the artery. Your chances of having a heart attack are greatly increased if you continue to smoke. For more information, call the education line for smoking cessation 8-733-GFDZBXL EAT A LOW FAT/CHOLESTEROL/SODIUM DIET: This diet may help reduce your chances of having a heart attack. LIFTING: With affected extremity: Avoid bending, pushing off and lifting more than 2 pounds for 24 hours The following 48 hours, avoid lifting anything more than 5 pounds Avoid strenuous activity or repetitive motions ACTIVITY: You may walk or climb stairs as tolerated You can resume sexual activity as tolerated In general, you are encouraged to engage in a minimum of 30 minutes or more of moderate intensity physical activity, such as brisk walking, daily or at least 3 -4 times weekly BATHING Do not submerge the site into water (bath tub, hot tub, swimming pool, dishes) for 1 week. This can be a source for infection into the blood stream. You may shower after 24 hours SITE CARE: After 24 hours, you may remove the dressing and leave the site open to air. Keep the site clean and dry. Clean gently and pat dry. You can expect bruising and tenderness that gradually resolve within a week or two. Return to work as instructed per your physician Resume driving as instructed per physician Keep all scheduled follow up appointments Resume medications as instructed IMPORTANT: If prescribed a Platelet Aggregation Inhibitor such as, Plavix, Brilinta or Effient: Duration of therapy is minimum one year These medications are often used in combination with Aspirin in prevention of future heart attacks Never discontinue unless consult with your Day Light Relief Operator STROKE (CVA) Risk factors for a stroke are: Age, cigarette smoking, diabetes, excessive alcohol consumption, family history, high blood pressure, overweight, physical inactivity, prior stroke, heart attack, diagnosis of carotid artery stenosis or other artery disease. Warning signs: Sudden numbness or weakness of the face, arm or leg; especially on one side of the body, sudden confusion, trouble speaking or understanding, sudden trouble seeing in one or both eyes, sudden trouble walking, dizziness, loss of balance or coordination, sudden severe headache with no cause. Call 911 or go to the Emergency Room. CONGESTIVE HEART FAILURE: If you have been diagnosed with Congestive Heart Failure (CHF) and your symptoms return, make an appointment with your physician Weigh yourself daily. Notify your physician if you have a weight gain of two or more pounds in one day or five or more pounds in one week. If you experience any difficulty breathing, please call 911 BLEEDING: Although the risk of bleeding is minimal, it can happen. If you have any bleeding from the site, apply firm pressure above the puncture site for 10-15 minutes. If the bleeding does not stop, continue manual pressure and call 911 Contact [facility] ( ) if: You develop a fever greater than 101 degrees Fahrenheit Your site becomes reddened or has any drainage You have an increase in pain or burning at the site or if a large knot forms at the site. If you experience chest pain, shortness of breath, dizziness, or extreme tiredness, stop the activity and rest. Please notify [facility] office if you experience any of these symptoms and they are not relieved by rest please call 911! - Diet and Activity Activity: increase activity as tolerated Diet: low fat, low cholesterol - Hospital Course Hospital course: Ms. Kong is a 71 year old female with a history of atrial fibrillation on Xarelto, HLD, and previous tobacco use who presented with chest pain. She was found to have an acute anterior [place]. She underwent emergent LHC that revealed 100 % stenosis in the mLAD. She received a drug-eluting stent 2 with good results. There was a 65% mCx stenosis and a 40% mRCA stenosis remaining. There was no complications from her procedure. Her right radial access site remains without hematoma. Kidney function remains normal. She was noted to be bradycardic during her stay and initially had atrial fibrillation rate controlled on admission. She quickly converted to normal sinus rhythm to sinus bradycardia without recurrent afib. Her sotalol was decreased to 40 mg twice a day from 80 mg twice a day. She was asymptomatic with the low heart rates. Her average heart rate over the last 12 hours was 57 bpm, NSR. EKG shows sinus rhythm with anterior ST elevation. QT/QTC 448/452. Lisinopril started for elevated blood pressures. Heart rate was 43 bpm at 9:50 PM. She will continue taking Xarelto. Importance of DAPT with Brilinta and aspirin uninterrupted for 1 year reviewed with patient and she voiced understanding. Statin therapy was not started secondary to myalgias on statin. TTE revealed EF 45-50%, hypokinetic apex. No significant valvular disease. She is now pain free and ready for discharge home. - Time Spent with Patient Total time spent providing and/or coordinating discharge services: 1h Greater than 30 minutes (Medication reconciliation, discharge summary, d/c teaching) Physical Examination Vital Signs, Last 4 Hours Temp Pulse Resp BP Pulse Ox 12/29/16 07:56 97.6 F 67 16 167/64 98 General: Conversant, No Apparent Distress HEENT: Atraumatic, Normocephaly, Mucus Membranes Moist Neck: No JVD, Normal carotid pulses Cardiac: Reg Rate and Rhythm, Normal S1 and S2, No Murmur Lungs: Normal Breath Sounds, No Wheeze, Rales, Rhonchi Neuro: Alert and responsive, No focal deficits noted Abdomen: Soft, Non-Tender Skin: No rashes noted on visualized skin Musculoskeletal: No Chest Wall Tenderness Extremities: No Clubbing, No Cyanosis, No Edema, Normal Pulses, Other (Right radial access ecchymosis and no hematoma. 2/2 pulses )
[2016-12-29 08:40] LABS: BUN/Creatinine Ratio 11 (6-26); Blood Urea Nitrogen 8 mg/dL (7-20); Calcium 8.8 mg/dL (8.6-10.8); Carbon Dioxide 23 mEq/L (19-29); Chloride 106 mEq/L (98-109); Glucose 150 mg/dL (70-99); Osmolality,Calculated 283 (280-300); Potassium 3.8 mEq/L (3.5-4.5); Sodium 136 mEq/L (136-145); eGFR For African Americans > 60 (> 60); eGFR For Non-African Americans > 60 (> 60)
--- NOTE | 2016-12-29 08:45 | ECHO - Doppler Report ---
Echocardiogram Name: Bruna Kong Date of Study: 12/28/2016 Date: 1945 Ht: 68.0 in Medical Record#: [id number] Age: 71 Wt: 174.0 lb Gender: Female BSA: 1.93 Order #: [id number] Location: [facility] Room #: 2NE35 Reading Physician: Thomas Schilling MD, [facility] Volleyball Commentator: Dorene Marrufo Ordering Physician: Paul Giron DO Primary Physician: Harjeet Arias MD Indications: recent heart cath Impressions: LVEF 40-45%. Mild segmental left ventricular systolic dysfunction. Mild left ventricular diastolic dysfunction. No significant valvular dysfunction. Left Ventricular Wall Motion: Rest Echo Findings The apex, apical inferior, apical anterior, apical septal and apical lateral olguin were hypokinetic. All other wall segments showed normal motion. Findings: Study Quality * Technically adequate exam. Right Ventricle * Normal right ventricular structure and function. Aortic Valve * Trileaflet aortic valve with normal function. Mitral Valve * Normal mitral valve structure and function. * Trace mitral regurgitation. Interatrial Septum * Interatrial septum not well evaluated. Aorta * Normally sized aortic root. Left Ventricle * Mild left ventricular diastolic dysfunction. * LVEF 40-45%. * Mild segmental left ventricular systolic dysfunction. Left Atrium * Mildly dilated left atrium. Tricuspid Valve * No tricuspid stenosis. * No tricuspid regurgitation. * Unable to estimate RVSP due to lack of TR jet. Pulmonic Valve * No pulmonic regurgitation. * No pulmonic stenosis. Pericardium * There is a trivial pericardial effusion present. IVC * The IVC is not well evaluated. Right Atrium * Right atrium is not well visualized. History Hypercholesteremia History of Smoking Years 58 Packs 0.5 Family History of CAD History of CAD/PTCA Myocardial Infarction Congestive Heart Failure 04/19/2016 a Previous Echo was performed. Measurements: BP: 164/ 71 2D Normal Values RVIDd: 2.90 cm <2.7 cm IVSd: .80 cm 0.6 - 1.0 cm LVIDd: 5.70 cm 3.7 - 5.6 cm LVPWd: .90 cm 0.6 - 1.1 cm LVIDs: 2.80 cm 1.5 - 3.6 cm AO: 2.30 cm < 4.0 cm LA: 3.90 cm 2.0 - 4.0cm %FS: 50.90 cm >25 % LA volume: 47 Mitral Valve Peak E:.80 m/sec Peak A:.93 m/sec E/A Ratio:0.9 Peak E' Lat Mike:5.65 cm/s Peak E' Med Mike:6.43 cm/s E/E' Lat Ratio:14.1 E/E' Med Ratio:12.4 Updated by Thomas Schilling MD, [facility] on 12/29/2016 8:21:26 AM electronically signed on 12/29/2016 8:40:33 AM with status of [employer] [place]: 1=Normal, 2=Hypokinesis, 3=Akinesis, 4=Dyskinesis, 5=Aneurysmal, 6=Hyperkinetic, X=Not Visualized (Blank)=Missing
[2016-12-29] MEDS ORDERED: *HR* Ticagrelor 90 MG TABLET PO SCH (09:00)
[2016-12-29] MEDS: Venlafaxine XR (24 HR) 150 MG CAP.ER.24H PO SCH (09:01)
[2016-12-29] MEDS: BuPROPion XL (24 HR) 150 MG TABLET PO SCH (09:01)
[2016-12-29] MEDS: Aspirin 81 MG TAB.CHEW PO SCH (09:01)
[2016-12-29] MEDS ORDERED: Mag Hydrox/Al Hydrox/Simeth 30 ML UDC PO PRN (11:37)
[2016-12-29] MEDS ORDERED: Isosorbide MONOnitrate (24 HR) 30 MG TAB.ER.24H PO SCH (11:45)
[2016-12-29 12:21] VITALS: BP 159/83
--- NOTE | 2016-12-31 09:00 | Electrocardiograph Report ---
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
--- NOTE | 2016-12-31 09:47 | Electrocardiograph Report ---
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
== END 2016-12-29 16:43 | disposition home or self-care (01) | DRG 247 ==
LOC: EMEROO 15:07 → ICNU 15:52 → EMEROO 15:52 → ICNU 16:10 → 2NENU 12-28 19:46
PROVIDERS: ADMIT Emergency Medicine; ATTEND Emergency Medicine

== ENCOUNTER 2017-04-20 14:37 | Inpatient (IN) ==
--- NOTE | 2017-04-20 14:46 | Emergency Department Note ---
Disposition Clinical Impression: Atrial fibrillation with RVR Chest pain Qualifiers: Chest pain type: unspecified Qualified Code(s): R07.9 - Chest pain, unspecified Disposition: Admitted As Inpatient Condition: Fair Referrals: Harjeet Arias MD [Primary Care Provider] - Forms: ED Satisfaction Letter Chest Pain HPI - General Chief Complaint: ED Chest Pain Stated Complaint: Chest Pain Time Seen by Provider: 04/20/17 14:43 Source: patient Mode of arrival: private vehicle Limitations: no limitations Vital Signs Reviewed: Yes Nursing Notes Reviewed: Yes - History of Present Illness HPI Narrative: 71-year-old female history of atrial fibrillation, CAD with 2 stents placed in December who presents to the ER with a chief complaint of chest pain. Patient reports that she was active this morning outside and when she came in and was walking around she started developing left-sided chest pain. She reports that radiated up into her neck. She states at that time she also felt sweaty and nauseated. She does report she felt similar back in December when she required 2 stent placements. She reports that she took her aspirin and Plavix this morning she is also anticoagulated for her A. fib. She follows with cardiology here. No history of DVT or PE. She took 3 sublingual nitroglycerin prior to arrival with some improvement of her symptoms. No other complaints. Pt complaint: chest pain Onset (ago): hour(s) Duration: constant Onset: during rest Pain Location: left chest Severity: moderate Quality: tightness Pain Radiation: jaw/teeth Improves with: nothing Worsens with: nothing Associated symptoms: Reports: nausea, vomiting, diaphoresis, dyspnea Treatments prior to arrival chest pain: aspirin, nitroglycerin (x3) - Related Data On Oral Contraceptives: No Home Medications Medication Instructions Recorded Confirmed Budesonide/Formoterol 80/4.5 2 puff IH BID PRN 12/27/16 04/20/17 [Symbicort 80/4.5] Bupropion HCl [Wellbutrin Xl] 300 mg PO DAILY 12/27/16 04/20/17 Dicyclomine [Bentyl] 40 mg PO QID 12/27/16 04/20/17 Fluticasone Propionate Nasal 50 mcg NS DAILY PRN 12/27/16 04/20/17 [Flonase] Levothyroxine [Synthroid] 224 mcg PO QAM 12/27/16 04/20/17 Loratadine [Claritin] 10 mg PO DAILY PRN 12/27/16 04/20/17 Omeprazole [PriLOSEC] 20 mg PO DAILY PRN 12/27/16 04/20/17 Rivaroxaban [Xarelto] 20 mg PO DAILY 12/27/16 04/20/17 Sotalol [Betapace] 80 mg PO Q12HR 12/27/16 04/20/17 Venlafaxine XR (24 HR) [Effexor Xr] 150 mg PO DAILY 12/27/16 04/20/17 Zolpidem [Ambien] 5 mg PO HS 12/27/16 04/20/17 Albuterol Sulfate [Proair Hfa] 2 puff IH Q4-6H PRN 04/20/17 04/20/17 Clopidogrel [Plavix] 75 mg PO DAILY 04/20/17 04/20/17 Previous Rx's Medication Instructions Recorded Aspirin 81 mg PO DAILY #30 tab.chew 12/29/16 Nitroglycerin 0.4 mg SL Q5MIN PRN #25 tab.subl 12/29/16 Allergies Allergy/AdvReac Type Severity Reaction Status Date / Time Amoxicillin Allergy Rash Verified 04/20/17 15:49 clavulanic acid Allergy Rash Verified 04/20/17 15:49 [From Augmentin] clopidogrel [From Plavix] Allergy Rash Verified 04/20/17 15:49 Bgloeqx-Vxp-Arz Reductase Allergy Rash Verified 04/20/17 15:49 Inhibitor [Statins] Sulfa (Sulfonamide Allergy Rash Verified 04/20/17 15:49 Antibiotics) amlodipine [From Norvasc] AdvReac Rash Verified 04/20/17 15:49 latex AdvReac Rash Verified 04/20/17 15:49 ticagrelor [From Brilinta] AdvReac Diarrhea Verified 04/20/17 15:53 All systems ED: reviewed and negative except as stated. Constitutional: Denies: fever Cardiovascular: Reports: chest pain Respiratory: Reports: dyspnea. Denies: cough, wheezes Gastrointestinal: Reports: nausea, vomiting. Denies: abdominal pain, diarrhea Musculoskeletal: Reports: neck pain Chest Pain PMH - Past Medical History Medical history: Reports: asthma, CHF, coronary artery disease, diabetes, GERD, hyperlipidemia, myocardial infarction, renal disease, thyroid disease Surgical history: Reports: appendectomy, cataract, cholecystectomy, orthopedic, other, sinus surgery, RAE/BSO Psychiatric history: Reports: anxiety, depression - Social History Smoking Status: Light tobacco smoker Alcohol use: Reports: none Drug use: Reports: none Physical Exam - General Limitations: no limitations General appearance: alert, in no apparent distress - Head Head exam: atraumatic, normocephalic, normal inspection - Eye Eye exam: Present: normal appearance, EOMI - ENT ENT exam: normal exam - Neck Neck exam: Present: normal inspection - Chest Chest inspection: Present: normal inspection, symmetric chest wall rise - Respiratory Respiratory exam: Present: normal lung sounds bilaterally - Cardiovascular Cardiovascular exam: Present: tachycardia, irregular rhythm, normal heart sounds - Abdominal Exam Abdominal exam: Present: soft, Non-Tender. Absent: tenderness - Extremities Exam Extremities exam: Present: normal inspection, full ROM - Expanded Upper Extremity Exam Shoulder exam: Present: normal inspection, full ROM Arm exam: Present: normal inspection, full ROM Elbow exam: Present: normal inspection, full ROM Forearm/Wrist exam: Present: normal inspection, full ROM Hand exam: Present: normal inspection, full ROM - Expanded Lower Extremity Exam Hip/Pelvis exam: Present: normal inspection, full ROM Upper leg exam: Present: normal inspection, full ROM Knee exam: Present: normal inspection, full ROM Lower leg exam: Present: normal inspection, full ROM Ankle exam: Present: normal inspection, full ROM Foot/toe exam: Present: normal inspection, full ROM - Neurological Exam Neurological exam: Present: alert - Psychiatric Psychiatric exam: Present: normal affect, normal mood - Skin Skin exam: Present: warm, dry, intact, normal color Course Course Narrative: Patient seen and examined. Vital signs reviewed. She is in A. fib RVR currently with a rate of 150. We will lower her heart rate with a Cardizem bolus and drip. We will also obtain a chest x-ray, labs including troponin and BNP. Patient will require admission for further workup. - Reevaluation(s) Reevaluation #1: Patient's blood pressure is marginal here around 100 systolic. We will hold off on the Cardizem bolus give her a gram of calcium and start the Cardizem drip. Reevaluation #2: I discussed the results of imaging and lab work with the patient. Her heart rate is currently in the 120s. We will continue to increase the Cardizem. Vital Signs Temperature 97.5 F L 04/20/17 14:41 Pulse Rate 128 04/20/17 14:41 Respiratory Rate 26 04/20/17 14:41 Blood Pressure 142/98 04/20/17 14:41 O2 Sat by Pulse Oximetry 96 04/20/17 14:41 Temperature 97.5 F L 04/20/17 14:51 Pulse Rate 138 04/20/17 15:28 Respiratory Rate 20 04/20/17 15:28 Blood Pressure 131/61 04/20/17 15:28 O2 Sat by Pulse Oximetry 98 04/20/17 15:28 Oxygen Delivery Oxygen Delivery Nasal Cannula Chest Pain - MDM Narrative Medical decision making narrative: 71-year-old female presents to the ER due to chest pain that started earlier today. She has a known history of CAD with stents placed in December as well as A. fib. Her EKG here demonstrates atrial fibrillation with RVR with a rate of 150. Chest x-ray shows chronic changes. Troponin is negative. Patient had a marginal blood pressure initially so we started her on a Cardizem drip. Her blood pressure is currently stable and we are titrating up with her current heart rate of 120. The hospitalist has been consulted and the patient is admitted for A. fib RVR and ACS rule out. - Medical Records Medical records reviewed: Yes I reviewed the patient's medical records. Echo performed on 12/27/16 red is an ejection fraction of 45-50% with mild left ventricular diastolic dysfunction. She did have stenting of the LAD after a STEMI at that time. - Lab Data Lab results reviewed: Yes I reviewed the patient's lab results. Result diagrams: 04/20/17 14:59 04/20/17 14:59 Lab Results 04/20/17 04/20/17 04/20/17 Range/Units 14:59 14:59 14:59 WBC 8.0 (4.3-11.1) K/mcL RBC 4.01 (3.82-4.97) M/mcL Hgb 11.9 (11.5-15.4) g/dL Hct 34.3 L (35.3-44.9) % MCV 85.5 (83.0-100.0) fL MCH 29.7 (28.0-33.3) pg MCHC 34.7 (31.6-35.5) g/dL RDW 13.0 (11.5-14.5) % Plt Count 219 (140-400) K/mcL MPV 10.2 (9.4-12.4) fL Immature Gran % 0.1 (0-4) % Seg Neutrophils % 57.3 % Lymphocytes % 32.3 % Monocytes % 7.3 % Eosinophils % 2.5 % Basophils % 0.5 % Neutrophils # 4.6 (1.6-8.9) K/mcL Lymphocytes # 2.6 (0.6-4.6) K/mcL Monocytes # 0.6 (0.0-1.3) K/mcL Eosinophils # 0.2 (0.0-0.6) K/mcL Basophils # 0.0 (0.0-0.2) K/mcL Immature Plt Fraction 4.0 (1.1-6.1) % PT 12.5 H (9.4-12.1) Seconds INR 1.2 APTT 25.4 L (26.0-36.0) Seconds Sodium (136-145) mEq/L Potassium (3.5-4.5) mEq/L Chloride (98-109) mEq/L Carbon Dioxide (19-29) mEq/L BUN (7-20) mg/dL Creatinine (0.57-1.11) mg/dL Est GFR ( Amer) (> 60) Est GFR (Non-Af Amer) (> 60) BUN/Creatinine Ratio (6-26) Glucose (70-99) mg/dL Calculated Osmolality (280-300) Calcium (8.6-10.8) mg/dL Troponin I (0-0.03) ng/mL B-Natriuretic Peptide 237 H (0-100) pg/mL 04/20/17 04/20/17 Range/Units 14:59 14:59 WBC (4.3-11.1) K/mcL RBC (3.82-4.97) M/mcL Hgb (11.5-15.4) g/dL Hct (35.3-44.9) % MCV (83.0-100.0) fL MCH (28.0-33.3) pg MCHC (31.6-35.5) g/dL RDW (11.5-14.5) % Plt Count (140-400) K/mcL MPV (9.4-12.4) fL Immature Gran % (0-4) % Seg Neutrophils % % Lymphocytes % % Monocytes % % Eosinophils % % Basophils % % Neutrophils # (1.6-8.9) K/mcL Lymphocytes # (0.6-4.6) K/mcL Monocytes # (0.0-1.3) K/mcL Eosinophils # (0.0-0.6) K/mcL Basophils # (0.0-0.2) K/mcL Immature Plt Fraction (1.1-6.1) % PT (9.4-12.1) Seconds INR APTT (26.0-36.0) Seconds Sodium 137 (136-145) mEq/L Potassium 4.0 (3.5-4.5) mEq/L Chloride 106 (98-109) mEq/L Carbon Dioxide 19 (19-29) mEq/L BUN 16 (7-20) mg/dL Creatinine 1.07 (0.57-1.11) mg/dL Est GFR ( Amer) > 60 (> 60) Est GFR (Non-Af Amer) 50 L (> 60) BUN/Creatinine Ratio 15 (6-26) Glucose 236 H (70-99) mg/dL Calculated Osmolality 293 (280-300) Calcium 9.2 (8.6-10.8) mg/dL Troponin I 0.01 (0-0.03) ng/mL B-Natriuretic Peptide (0-100) pg/mL - Radiology Data Radiology results reviewed: Yes I reviewed the patient's radiology results. Chest X-Ray 04/20/17 14:45 IMPRESSION: 1. No acute cardiopulmonary disease. 2. Stable interstitial markings, likely representing chronic lung disease. D/ / 04/20/2017 15:25:14 Veena Jimenez MD / lizbeth Interpreting Provider: Veena Jimenez MD - EKG Data EKG attestation: Yes I reviewed and interpreted this EKG. EKG results narrative: EKG demonstrates atrial fibrillation with a rate of 151. Normal axis. QRS duration 93 QTC 314 there are biphasic T waves in the lateral limb leads V4 and V5 likely secondary to rate. No ST elevations. Changes from previous EKG include atrial fibrillation. Heart Score - Score History: Moderately Suspicious EKG: Non Specific repolarisation Disturbance Age: Greater than 65 Risk Factors: 1-2 risk factors Troponin: Less than normal limit HEART Score Total: 5 S.B.A.R. - S.B.A.Cruz Situation: Demographics, MOA Background: Presenting Complaint, Relevant PMH, Meds, & Allergies Assessment: Vital Signs, Course and respsone to treatment, Exam Concerns, Patient/Family Expectation, Pertinant Lab Results, Outstanding Labs Recommendation: Barrier(s) to disposition, Recommendation based on pending studies, treatments, or consults S.B.A.RCaroline Report Given to: Dr. Kenny Santiago Repor Time: 15:54
--- NOTE | 2017-04-20 14:47 | Emergency Department Note ---
START Narrative - START START: I examined this patient and my medical decision-making was reviewed with the MARKETING AUTOMATION MANAGER/PA/Advanced Practice Nurse/Resident Physician. I agree with the documented findings, disposition and treatment plan as described except to the extent set forth below. ED attending note: Patient seen with emergency medicine resident Dr. Kumar. We independently evaluated the patient. We independently had [id number] contact with the patient. Please see a copy of his note for details of the history and physical, evaluation, management and disposition of this emergency Department patient. Briefly: This 71-year-old female history of [place] in 2 prior cardiac stents presents with chest pain at rest. Unrelieved with nitroglycerin. Patient will get workup and troponin here and admission. Provided 35 minutes of critical care services for this patient
[2017-04-20] MEDS ORDERED: Calcium Gluconate 1,000 MG in D5% in Water 100 ML IVPB ONE (15:05)
[2017-04-20 15:13] LABS: Basophils % 0.5 %; Eosinophils # 0.2 K/mcL (0.0-0.6); Eosinophils % 2.5 %; Hematocrit 34.3 % (35.3-44.9); Hemoglobin 11.9 g/dL (11.5-15.4); Immature Granulocytes % 0.1 % (0-4); Lymphocytes # 2.6 K/mcL (0.6-4.6); Lymphocytes % 32.3 %; Mean Corpuscular HGB Conc 34.7 g/dL (31.6-35.5); Mean Corpuscular Hemoglobin 29.7 pg (28.0-33.3); Mean Corpuscular Volume 85.5 fL (83.0-100.0); Mean Platelet Volume 10.2 fL (9.4-12.4); Monocytes # 0.6 K/mcL (0.0-1.3); Monocytes % 7.3 %; Neutrophils # 4.6 K/mcL (1.6-8.9); Platelet Count 219 K/mcL (140-400); Red Blood Count 4.01 M/mcL (3.82-4.97); Segmented Neutrophils % 57.3 %
[2017-04-20 15:18] LABS: INR 1.2; Prothrombin Time 12.5 Seconds (9.4-12.1)
[2017-04-20 15:21] LABS: Activated Partial Thrombo Time 25.4 Seconds (26.0-36.0)
[2017-04-20 15:26] LABS: BUN/Creatinine Ratio 15 (6-26); Blood Urea Nitrogen 16 mg/dL (7-20); Calcium 9.2 mg/dL (8.6-10.8); Carbon Dioxide 19 mEq/L (19-29); Chloride 106 mEq/L (98-109); Glucose 236 mg/dL (70-99); Osmolality,Calculated 293 (280-300); Sodium 137 mEq/L (136-145); eGFR For African Americans > 60 (> 60); eGFR For Non-African Americans 50 (> 60)
[2017-04-20] MEDS ORDERED: Acetaminophen 325 MG TABLET PO PRN (17:47)
[2017-04-20] MEDS ORDERED: Naloxone 0.4 MG/ML INJ IVP PRN (17:47)
[2017-04-20] MEDS ORDERED: Fluticasone Propionate Nasal 50 MCG/SPRAY BOTTLE NS PRN (17:51)
[2017-04-20] MEDS ORDERED: Nitroglycerin 0.4 MG TAB.SUBL SL PRN (17:51)
[2017-04-20] MEDS ORDERED: Loratadine 10 MG TABLET PO PRN (17:51)
--- NOTE | 2017-04-20 18:51 | Internal Med History&Physical ---
Date of Encounter: 04/20/17 Time of Encounter: 18:48 Assessment and Plan (1) Atrial fibrillation with RVR Current visit: Yes Status: Acute Patient presented with chest pain and was found to have afib with RVR, HR 150. Cardizem drip started and patient's heart rate came down to 90s. Patient on sotalol for rate control and xarelto for anticoagulation at home. Continue home doses of medications. Titrate cardizem drip for HR < 90. (2) Chest pain Current visit: Yes Status: Acute Patient presented with chest pain radiating to left jaw and accompanied by diaphoresis and nausea. Found to be in afib with RVR. Troponin normal at 0.01. HR came down with cardizem drip and chest pain has resolved. 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 Serial troponins. Qualifiers: Chest pain type: precordial pain Qualified Code(s): R07.2 - Precordial pain (3) Hypothyroid Current visit: Yes Status: Acute Previous thyroid studies abnormal with TSH low at 0.006 and free T4 elevated at 2.01 on 01/10/17. Patient reports her PCP has been adjusting her levothyroxine. Will check TSH and free T4. Qualifiers: Hypothyroidism type: unspecified Qualified Code(s): E03.9 - Hypothyroidism , unspecified (4) Coronary artery disease Current visit: Yes Status: Acute Patient had LA with stent placement in December. Continue aspirin and plavix. Qualifiers: Coronary Disease-Associated Artery/Lesion type: [place] artery [place] vs. transplanted heart: [place] heart Associated angina: angina presence unspecified Qualified Code(s): I25.10 - Atherosclerotic heart disease of [place] coronary artery without angina pectoris (5) Type 2 diabetes mellitus Current visit: Yes Status: Acute Patient reports she is diet controlled. blood sugar elevated to 236. Check blood sugars ACHS sliding scale correction dose ACHS hypoglycemic protocol. Qualifiers: Diabetes mellitus complication status: without complication Diabetes mellitus helium arc welder insulin use: without helium arc welder use Qualified Code(s): E11.9 - Type 2 diabetes mellitus without complications (6) DVT prophylaxis Current visit: Yes Status: Acute anti-embolic stockings. Patient on xarelto for afib. Additional pharmacologic prophylaxis not warranted. Internal Medicine - H&P: HPI Chief complaint: chest pain Admitted From: Emergency Dept Plans for Post Hospital Care: Home History of present illness: Ms. Kong is a 71 year old female with history of coronary artery disease status post stent placement in December, atrial fibrillation, asthma, history of CHF, diet-controlled diabetes, hyperlipidemia, hypothyroidism, presents to the emergency department today with complaints of chest pain. Patient reports that she was outside mowing her grass came and went to the restroom and suddenly had left-sided chest pain radiating to her left jaw, sweating, and nausea. She took 3 nitroglycerin and the sensation was unrelieved so she came to the emergency department. She was found to be in A. fib with RVR heart rate of 150. Patient is a denies any lightheadedness, vomiting, abdominal pain, diarrhea. Troponin was negative at 0.01. Her blood cell count was normal at 8.0. Blood sugar was elevated at 236. Patient takes sotalol and several toe for her atrial fibrillation. She was started on a Cardizem drip, and her heart rate came down to the 90s. On exam, patient alert and oriented, in no acute distress. Heart rate in the 80s to 90s on my exam, with irregular rhythm. Lungs clear bilaterally to auscultation. No peripheral edema. Past Med Surg Social Fam HX - Past Medical History Medical history: asthma, CHF, coronary artery disease, diabetes, GERD, hyperlipidemia, myocardial infarction, renal disease, thyroid disease Psychiatric history: anxiety, depression - Past Surgical History Surgical History: appendectomy, cataract, cholecystectomy, orthopedic, other, sinus surgery, RAE/BSO - Social History Smoking Status: Former smoker (30 pack year history) Smokeless Tobacco Status: No Alcohol use: none Drug use: none - Family History Mother Name: prateek Age: 92 Living Status: Still Living Hx Family Cardiac Disorders: Yes (self,uncle,father, grandmother) Hx Family Respiratory Disorders: Yes (self) Hx Family Cancer: Yes (sister) Hx Family GI Disorders: Yes (self,) Hx Family Endocrine Disorder: Yes (uncle) Hx Family Neuromuscular Disorders: Yes Hx Family Neurologic Disorders: Yes (mother,) Hx Family HEENT Disorders: No Hx Family Autoimmune Disorders: No Internal Medicine - H&P: Meds Budesonide/Formoterol 80/4.5 [Symbicort 80/4.5] 2 puff IH BID PRN 12/27/16 [ History] Bupropion HCl [Wellbutrin Xl] 300 mg PO DAILY 12/27/16 [History] Dicyclomine [Bentyl] 40 mg PO QID 12/27/16 [History] Fluticasone Propionate Nasal [Flonase] 50 mcg NS DAILY PRN 12/27/16 [History] Levothyroxine [Synthroid] 224 mcg PO QAM 12/27/16 [History] Loratadine [Claritin] 10 mg PO DAILY PRN 12/27/16 [History] Omeprazole [PriLOSEC] 20 mg PO DAILY PRN 12/27/16 [History] Rivaroxaban [Xarelto] 20 mg PO DAILY 12/27/16 [History] Sotalol [Betapace] 80 mg PO Q12HR 12/27/16 [History] Venlafaxine XR (24 HR) [Effexor Xr] 150 mg PO DAILY 12/27/16 [History] Zolpidem [Ambien] 5 mg PO HS 12/27/16 [History] Aspirin 81 mg PO DAILY #30 tab.chew 12/29/16 [Rx] Nitroglycerin 0.4 mg SL Q5MIN PRN #25 tab.subl 12/29/16 [Rx] Albuterol Sulfate [Proair Hfa] 2 puff IH Q4-6H PRN 04/20/17 [History] Clopidogrel [Plavix] 75 mg PO DAILY 04/20/17 [History] Allergies Amoxicillin Allergy (Verified 04/20/17 15:49) Rash clavulanic acid [From Augmentin] Allergy (Verified 04/20/17 15:49) Rash clopidogrel [From Plavix] Allergy (Verified 04/20/17 15:49) Rash Umqmvct-[id number] Reductase Inhibitor [Statins] Allergy (Verified 04/20/17 15:49) Rash Sulfa (Sulfonamide Antibiotics) Allergy (Verified 04/20/17 15:49) Rash amlodipine [From Norvasc] Adverse Reaction (Verified 04/20/17 15:49) Rash latex Adverse Reaction (Verified 04/20/17 15:49) Rash ticagrelor [From Brilinta] Adverse Reaction (Verified 04/20/17 15:53) Diarrhea All Systems PM: A 10-system review of systems was performed and is negative for pertinent findings except as documented above in the HPI. - Constitutional Constitutional: no chills, no fever(s), no night sweats - EENT Eyes: no change in vision, no discharge, no pain, no photophobia Ears: no ear discharge, no ear pain, no tinnitus Nose, mouth and throat: no dysphagia, no nasal discharge, no neck pain, no sore throat - Cardiovascular Cardiovascular ROS IM: chest pain, diaphoresis, no dyspnea, no lightheadedness, no palpitations, no syncope - Respiratory Respiratory: no cough, no dyspnea, no wheezing, no excessive phlegm production - Gastrointestinal Gastrointestinal: nausea, no abdominal pain, no diarrhea, no hematemesis, no hematochezia, no melena, no vomiting - Genitourinary Genitourinary: no change in urinary stream, no dysuria, no flank pain, no hematuria - Musculoskeletal Musculoskeletal ROS IM: no numbness, no tingling - Integumentary Integumentary IM: no rash, no unusual bruising - Neurological Neurological ROS: no confusion, no convulsions, no focal weakness, no numbness, no tingling, no tremor(s) - Hematologic/Lymphatic Hematologic/Lymphatic: no easy bruising - Constitutional Vitals: Temp Pulse Resp BP Pulse Ox 97.8 F 97 16 131/84 97 04/20/17 17:04 04/20/17 17:04 04/20/17 17:04 04/20/17 17:04 04/20/17 17:04 General appearance: Present: A&O X 3, pleasant, no acute distress - Head Head exam: Present: atraumatic, normocephalic - Eye Eye exam: Present: PERRL, conjuntiva pink, sclera anicteric Pupils: Present: PERRL - Neck Neck exam general surgery: Present: supple, trachea midline. Absent: lymphadenopathy - Respiratory Respiratory exam: Present: CTAB. Absent: accessory muscle use, rales, rhonchi, wheezes - Cardiovascular Cardiovascular exam: Present: RRR, +S1, +S2. Absent: diastolic murmur, gallop, rubs, systolic murmur - GI/Abdominal GI/Abdominal exam: Present: normal bowel sounds, soft, no peritoneal signs. Absent: distended, tenderness - Extremities Exam Extremities exam: Present: warm, radial pulses palpable and symetrical. Absent : calf tenderness, cyanotic, pedal edema - Neurological Exam Neurological exam: Present: CN II-XII intact, oriented X3, no focal deficits. Absent: pronater drift, facial droop, speech deficit - Skin Skin exam: Present: dry, intact Internal Med - H&P Results - Labs CBC & Chem 7: 04/20/17 14:59 04/20/17 14:59 Labs: All Lab Results (24 Hours) 04/20/17 04/20/17 04/20/17 Range/Units 14:59 14:59 14:59 WBC 8.0 (4.3-11.1) K/mcL RBC 4.01 (3.82-4.97) M/mcL Hgb 11.9 (11.5-15.4) g/dL Hct 34.3 L (35.3-44.9) % MCV 85.5 (83.0-100.0) fL MCH 29.7 (28.0-33.3) pg MCHC 34.7 (31.6-35.5) g/dL RDW 13.0 (11.5-14.5) % Plt Count 219 (140-400) K/mcL MPV 10.2 (9.4-12.4) fL Immature Gran % 0.1 (0-4) % Seg Neutrophils % 57.3 % Lymphocytes % 32.3 % Monocytes % 7.3 % Eosinophils % 2.5 % Basophils % 0.5 % Neutrophils # 4.6 (1.6-8.9) K/mcL Lymphocytes # 2.6 (0.6-4.6) K/mcL Monocytes # 0.6 (0.0-1.3) K/mcL Eosinophils # 0.2 (0.0-0.6) K/mcL Basophils # 0.0 (0.0-0.2) K/mcL Immature Plt Fraction 4.0 (1.1-6.1) % PT 12.5 H (9.4-12.1) Seconds INR 1.2 APTT 25.4 L (26.0-36.0) Seconds Sodium (136-145) mEq/L Potassium (3.5-4.5) mEq/L Chloride (98-109) mEq/L Carbon Dioxide (19-29) mEq/L BUN (7-20) mg/dL Creatinine (0.57-1.11) mg/dL Est GFR ( Amer) (> 60) Est GFR (Non-Af Amer) (> 60) BUN/Creatinine Ratio (6-26) Glucose (70-99) mg/dL Calculated Osmolality (280-300) Calcium (8.6-10.8) mg/dL Troponin I (0-0.03) ng/mL B-Natriuretic Peptide 237 H (0-100) pg/mL 04/20/17 04/20/17 Range/Units 14:59 14:59 WBC (4.3-11.1) K/mcL RBC (3.82-4.97) M/mcL Hgb (11.5-15.4) g/dL Hct (35.3-44.9) % MCV (83.0-100.0) fL MCH (28.0-33.3) pg MCHC (31.6-35.5) g/dL RDW (11.5-14.5) % Plt Count (140-400) K/mcL MPV (9.4-12.4) fL Immature Gran % (0-4) % Seg Neutrophils % % Lymphocytes % % Monocytes % % Eosinophils % % Basophils % % Neutrophils # (1.6-8.9) K/mcL Lymphocytes # (0.6-4.6) K/mcL Monocytes # (0.0-1.3) K/mcL Eosinophils # (0.0-0.6) K/mcL Basophils # (0.0-0.2) K/mcL Immature Plt Fraction (1.1-6.1) % PT (9.4-12.1) Seconds INR APTT (26.0-36.0) Seconds Sodium 137 (136-145) mEq/L Potassium 4.0 (3.5-4.5) mEq/L Chloride 106 (98-109) mEq/L Carbon Dioxide 19 (19-29) mEq/L BUN 16 (7-20) mg/dL Creatinine 1.07 (0.57-1.11) mg/dL Est GFR ( Amer) > 60 (> 60) Est GFR (Non-Af Amer) 50 L (> 60) BUN/Creatinine Ratio 15 (6-26) Glucose 236 H (70-99) mg/dL Calculated Osmolality 293 (280-300) Calcium 9.2 (8.6-10.8) mg/dL Troponin I 0.01 (0-0.03) ng/mL B-Natriuretic Peptide (0-100) pg/mL - Diagnostic Studies Chest x-ray Additional comments: Chest X-Ray 04/20/17 14:45 IMPRESSION: 1. No acute cardiopulmonary disease. 2. Stable interstitial markings, likely representing chronic lung disease. D/ / 04/20/2017 15:25:14 Veena Jimenez MD / lizbeth Interpreting Provider: Veena Jimenez MD
[2017-04-20] MEDS ORDERED: *HR* Dextrose 50 % in Water (Syg) 50 ML SYRINGE IVP PRN (19:22)
[2017-04-20] MEDS ORDERED: Dextrose Gel 15 GM PO PRN ×2 (19:22)
[2017-04-20] MEDS ORDERED: D5% in Water 1,000 ML IVC PRN (19:22)
[2017-04-20] MEDS: Insulin LISPRO 300 UNITS/3 ML VIAL SQ SCH (21:27)
[2017-04-21 04:10] LABS: Basophils % 0.6 %; Eosinophils # 0.2 K/mcL (0.0-0.6); Eosinophils % 3.2 %; Hematocrit 36.2 % (35.3-44.9); Hemoglobin 12.3 g/dL (11.5-15.4); Immature Granulocytes % 0.3 % (0-4); Lymphocytes # 2.1 K/mcL (0.6-4.6); Lymphocytes % 31.6 %; Mean Corpuscular Hemoglobin 28.8 pg (28.0-33.3); Mean Corpuscular Volume 84.8 fL (83.0-100.0); Mean Platelet Volume 9.9 fL (9.4-12.4); Monocytes # 0.5 K/mcL (0.0-1.3); Monocytes % 7.8 %; Neutrophils # 3.7 K/mcL (1.6-8.9); Platelet Count 193 K/mcL (140-400); Red Blood Count 4.27 M/mcL (3.82-4.97); Red Cell Distribution Width 12.9 % (11.5-14.5); Segmented Neutrophils % 56.5 %
[2017-04-21 04:26] LABS: Calcium 9.3 mg/dL (8.6-10.8); Magnesium 1.5 mg/dL (1.6-2.6); Phosphorous 4.3 mg/dL (2.3-4.7)
[2017-04-21 05:21] LABS: Thyroid Stimulating Hormone 0.022 mcIU/mL (0.350-4.840)
[2017-04-21] MEDS: Aspirin 81 MG TAB.CHEW PO SCH (08:05)
[2017-04-21] MEDS: BuPROPion XL (24 HR) 150 MG TABLET PO SCH (08:05)
[2017-04-21] MEDS: *HR* Rivaroxaban 15 MG TABLET PO SCH (08:06)
[2017-04-21] MEDS: Venlafaxine XR (24 HR) 150 MG CAP.ER.24H PO SCH (08:06)
[2017-04-21] MEDS: Insulin LISPRO 300 UNITS/3 ML VIAL SQ SCH ×4 (08:09→21:14)
--- NOTE | 2017-04-21 08:12 | Internal Med Progress Note ---
<Paul Leahy - Last Filed: 04/21/17 11:50> Date of Encounter: 04/21/17 Time of Encounter: 08:11 - Assessment and plan (1) Atrial fibrillation with RVR Current Visit: Yes Status: Acute Assessment and plan: Patient presented with atrial fibrillation with rapid ventricular rate after working in her yard yesterday. Upon admission she was optimized with ACS medications and started on a diltiazem drip for rate control. Her rate is currently controlled, her symptoms are significantly improved compared to admission. -The patient follows with [facility]. -Home medications included sotalol Plan: - Cardiology following appreciate the recommendations - Sotalol 80 mg by mouth every 12 hours - Per cardiology patient may need CV prior to discharge (2) Chest pain Current Visit: Yes Status: Acute Assessment and plan: Patient has recurrence of typical chest pain symptoms with substernal chest pain radiating to the left jaw associated with nausea and relieved by nitroglycerin. Significant cardiac history with a STEMI in December requiring 2 drug-eluting stents. Patient says she has been compliant with her antiplatelet therapy and Xarelto. EKG is reviewed there is some minimal ST changes in leads II,III, aVF with less than 1 mm elevation. Repeat EKGs with chest pain today had no elevation in those leads. - Troponin levels elevated to 0.08 - Repeat troponin level with current chest pain episode pending. Plan: - Continue aspirin 81 mg, Plavix 75 mg, sublingual nitroglycerin when necessary - Continue monitoring tech - Cardiac diet - Cardiology following. Qualifiers: Chest pain type: precordial pain Qualified Code(s): R07.2 - Precordial pain (3) Hypothyroid Current Visit: Yes Status: Acute Assessment and plan: Patient has a known history of hypothyroidism with labile reaction to levothyroxine. Her current TSH is low at 0.022 and her T4 and free T4 were therapeutic. Review of her previous TSH levels demonstrates a high of 66 and she states that she has her lab work completed every 3 months with adjustments to her levothyroxine. - Current dose of levothyroxine is 224 Plan: - We will restart levothyroxine at 200mcg Qam - This may be contributing to her atrial fibrillation with RVR. - Patient would likely benefit from evaluation from endocrinology post discharge. Qualifiers: Hypothyroidism type: unspecified Qualified Code(s): E03.9 - Hypothyroidism , unspecified (4) Coronary artery disease Current Visit: Yes Status: Acute Assessment and plan: Known history of coronary artery disease with recent STEMI and 2 drug-eluting stents placed. - Last echocardiogram performed in December demonstrates LVEF 45-50%, mild left ventricular diastolic dysfunction, no significant valvular dysfunction, mild segmental left ventricular systolic dysfunction Plan: -As above. Qualifiers: Coronary Disease-Associated Artery/Lesion type: [place] artery [place] vs. transplanted heart: [place] heart Associated angina: angina presence unspecified Qualified Code(s): I25.10 - Atherosclerotic heart disease of [place] coronary artery without angina pectoris (5) Type 2 diabetes mellitus Current Visit: Yes Status: Acute Assessment and plan: Known history of type 2 diabetes, current glucoses are slightly elevated. Plan: - Continue with sliding scale insulin coverage. - Before meals at bedtime glucose checks Qualifiers: Diabetes mellitus complication status: without complication Diabetes mellitus custodial insulin use: without custodial use Qualified Code(s): E11.9 - Type 2 diabetes mellitus without complications (6) DVT prophylaxis Current Visit: Yes Status: Acute Assessment and plan: SCD - Subjective Interval history: Miss Kong 71-year-old female with history of STEMI and 2 drug-eluting stents placed in December admitted with atrial fibrillation with RVR. She was seen and evaluated patient bedside this morning. Upon evaluation she stated that her chest pain was a 0 out of 10 but when she came in it was 8-9 out of 10. She described her chest pain symptoms of substernal radiating into the left jaw and slightly improve with nitroglycerin. She states that she has been compliant with her aspirin, clopidogrel, Xarelto and other cardiac medications. She denies any recent illnesses, fevers chills night sweats change in vision, abdominal pain but did have some nausea with these episodes. Post exam patient did have some substernal chest pain rated at a 10 out of 10 sitting at patient bedside associated with nausea and improvement in her chest pain with sublingual nitroglycerin. Repeat EKGs were completed that demonstrated atrial fibrillation Parable with previous EKGs. - Constitutional Vitals: Temp Pulse Resp BP Pulse Ox 97.8 F 70 16 99/62 95 04/21/17 07:06 04/21/17 07:06 04/21/17 07:06 04/21/17 07:06 04/21/17 07:06 General appearance: Present: A&O X 3, pleasant, no acute distress Exam: General: Patient alert, awake, oriented 3, interactive, in no acute distress HEENT: Normocephalic, atraumatic, pupils equal reactive to light, nasal cavity patent and open septum median position, oral mucosa moist, uvula midline, neck supple trachea midline no palpable lymphadenopathy, no thyromegaly. Chest: Symmetric bilateral correlating with respiratory effort, effort nonlabored. Cardiac: Irregularly irregular heart rate and rhythm, no bruits appreciated bilateral carotids, Radial pulses 2+ bilateral, posterior tibial and dorsal pedal pulses 2+ bilateral. Respiratory: Clear to auscultation all lung breen Abdomen: Soft, nontender, positive bowel sounds, no palpable masses appreciated on examination Extremities: Symmetric bilateral, no erythema or edema, patient moving all 4 extremities spontaneously. Neurologic: No focal deficits appreciated on examination. Face symmetric, muscle strength symmetric bilateral upper and lower extremities. Internal Medicine: Result - Labs CBC & Chem 7: 04/21/17 04:00 04/21/17 04:00 Labs: Short CBC 04/21/17 Range/Units 04:00 WBC 6.6 (4.3-11.1) K/mcL Hgb 12.3 (11.5-15.4) g/dL Hct 36.2 (35.3-44.9) % Plt Count 193 (140-400) K/mcL Neutrophils # 3.7 (1.6-8.9) K/mcL BMP 04/21/17 04:00 Sodium 138 Potassium 4.0 Chloride 106 Carbon Dioxide 24 BUN 14 Creatinine 1.28 H Glucose 184 H Calcium 9.3 Cardiac Enzymes 04/20/17 04/21/17 Range/Units 21:14 04:00 Troponin I 0.07 H* 0.08 H* (0-0.03) ng/mL - ABG Interpretation ABG results: PT/INR, D-dimer PT 12.5 Seconds (9.4-12.1) H 04/20/17 14:59 Consult Discharge Plan - Plan Referrals: Harjeet Arias MD [Primary Care Provider] - <Santiago King - Last Filed: 04/21/17 14:21> Date of Encounter: 04/21/17 - Constitutional Vitals: Temp Pulse Resp BP Pulse Ox 98.1 F 66 18 120/75 96 06/18/17 11:30 04/21/17 11:30 04/21/17 11:30 04/21/17 11:30 04/21/17 11:30 Internal Medicine: Result - Labs CBC & Chem 7: 04/21/17 04:00 04/21/17 04:00 Labs: Short CBC 04/21/17 Range/Units 04:00 WBC 6.6 (4.3-11.1) K/mcL Hgb 12.3 (11.5-15.4) g/dL Hct 36.2 (35.3-44.9) % Plt Count 193 (140-400) K/mcL Neutrophils # 3.7 (1.6-8.9) K/mcL BMP 04/21/17 04:00 Sodium 138 Potassium 4.0 Chloride 106 Carbon Dioxide 24 BUN 14 Creatinine 1.28 H Glucose 184 H Calcium 9.3 Cardiac Enzymes 04/20/17 04/21/17 04/21/17 Range/Units 21:14 04:00 11:35 Troponin I 0.07 H* 0.08 H* 0.05 H* (0-0.03) ng/mL - ABG Interpretation ABG results: PT/INR, D-dimer PT 12.5 Seconds (9.4-12.1) H 04/20/17 14:59 - Attending Attestation I saw and examined pt. I have discussed with Resident Dr Leahy regarding pt's management plan. I agree with the documentation. Pt has A Fib RVR, Cardio consult appreciated, sotalol dose has been increased. Now rate is controlled on cardizem drip, will continue to closely monitor pt. Try to titrate down to stop the cardizem drip after given po sotalol.
--- NOTE | 2017-04-21 09:51 | Cardiology Consult Note ---
Date of Encounter: 04/21/17 Time of Encounter: 09:48 Assessment and Plan (1) Atrial fibrillation with RVR Current Visit: Yes Status: Acute Known PAF. Recurent at on low dose sotalol. Would increaese sotalol. If doesnt convert may need CV prior to d/c. (2) Chest pain Current Visit: Yes Status: Acute This is likely secondary to AF with RVR. Qualifiers: Chest pain type: precordial pain Qualified Code(s): R07.2 - Precordial pain Discussion w patient/family: The assessment and plan as outlined above was discussed with the patient and/or family members who expressed understanding and agreement. All questions were answered. Thank you for involving us in the care of your patient. Please call with any questions. History of Present Illness Consult date: 04/21/17 Requesting physician: Geno Breaux Consult reason: AF RVR Chief complaint: Chest pain History of present illness: Ms. Kong is a 71 year old female with a history to CAD, [place] and PAF. SHe developed chest pain at hime and was found in the ER to have AF with RVR. Past Med Surg Social Fam HX - Past Medical History Medical history: asthma, CHF, coronary artery disease, diabetes, GERD, hyperlipidemia, myocardial infarction, renal disease, thyroid disease Psychiatric history: anxiety, depression - Past Surgical History Surgical History: appendectomy, cataract, cholecystectomy, orthopedic, other, sinus surgery, RAE/BSO - Social History Smoking Status: Former smoker (30 pack year history) Smokeless Tobacco Status: No Alcohol use: none Drug use: none - Family History Mother Name: prateek Age: 92 Living Status: Still Living Hx Family Cardiac Disorders: Yes (self,uncle,father, grandmother) Hx Family Respiratory Disorders: Yes (self) Hx Family Cancer: Yes (sister) Hx Family GI Disorders: Yes (self,) Hx Family Endocrine Disorder: Yes (uncle) Hx Family Neuromuscular Disorders: Yes Hx Family Neurologic Disorders: Yes (mother,) Hx Family HEENT Disorders: No Hx Family Autoimmune Disorders: No Medications and Allergies Budesonide/Formoterol 80/4.5 [Symbicort 80/4.5] 2 puff IH BID PRN 12/27/16 [ History] Bupropion HCl [Wellbutrin Xl] 300 mg PO DAILY 12/27/16 [History] Dicyclomine [Bentyl] 40 mg PO QID 12/27/16 [History] Fluticasone Propionate Nasal [Flonase] 50 mcg NS DAILY PRN 12/27/16 [History] Levothyroxine [Synthroid] 224 mcg PO QAM 12/27/16 [History] Loratadine [Claritin] 10 mg PO DAILY PRN 12/27/16 [History] Omeprazole [PriLOSEC] 20 mg PO DAILY PRN 12/27/16 [History] Rivaroxaban [Xarelto] 20 mg PO DAILY 12/27/16 [History] Sotalol [Betapace] 80 mg PO Q12HR 12/27/16 [History] Venlafaxine XR (24 HR) [Effexor Xr] 150 mg PO DAILY 12/27/16 [History] Zolpidem [Ambien] 5 mg PO HS 12/27/16 [History] Aspirin 81 mg PO DAILY #30 tab.chew 12/29/16 [Rx] Nitroglycerin 0.4 mg SL Q5MIN PRN #25 tab.subl 12/29/16 [Rx] Albuterol Sulfate [Proair Hfa] 2 puff IH Q4-6H PRN 04/20/17 [History] Clopidogrel [Plavix] 75 mg PO DAILY 04/20/17 [History] Allergies Amoxicillin Allergy (Verified 04/20/17 15:49) Rash clavulanic acid [From Augmentin] Allergy (Verified 04/20/17 15:49) Rash clopidogrel [From Plavix] Allergy (Verified 04/20/17 15:49) Rash Lkngnfu-Wub-Bej Reductase Inhibitor [Statins] Allergy (Verified 04/20/17 15:49) Rash Sulfa (Sulfonamide Antibiotics) Allergy (Verified 04/20/17 15:49) Rash amlodipine [From Norvasc] Adverse Reaction (Verified 04/20/17 15:49) Rash latex Adverse Reaction (Verified 04/20/17 15:49) Rash ticagrelor [From Brilinta] Adverse Reaction (Verified 04/20/17 15:53) Diarrhea All Systems Review: A 10-system review of systems was performed and is negative for pertinent findings except as documented above in the HPI. Physical Examination Vital Signs, Last 4 Hours Temp Pulse Resp BP Pulse Ox 04/21/17 07:06 97.8 F 70 16 99/62 95 General: Conversant, No Apparent Distress HEENT: Atraumatic, Normocephaly, Mucus Membranes Moist Neck: No JVD, Normal carotid pulses Cardiac: Other (Irreg, mild tachy) Lungs: Normal Breath Sounds, No Wheeze, Rales, Rhonchi Neuro: Alert and responsive, No focal deficits noted Abdomen: Soft, Non-Tender Skin: No rashes noted on visualized skin Musculoskeletal: No Chest Wall Tenderness Extremities: No Clubbing, No Cyanosis, No Edema, Normal Pulses Results 04/21/17 04:00 04/21/17 04:00 Lab Results 04/20/17 04/21/17 04/21/17 21:14 04:00 04:00 WBC 6.6 Hgb 12.3 Hct 36.2 Plt Count 193 Sodium Potassium Chloride Carbon Dioxide BUN Creatinine Glucose Calcium Magnesium Troponin I 0.07 H* 0.08 H* TSH 04/21/17 04:00 WBC Hgb Hct Plt Count Sodium 138 Potassium 4.0 Chloride 106 Carbon Dioxide 24 BUN 14 Creatinine 1.28 H Glucose 184 H Calcium 9.3 Magnesium 1.5 L Troponin I TSH 0.022 L - EKG Interpretation EKG results cardiology: other (AF with RVR on admit) Consult Discharge Plan - Plan Referrals: Harjeet Arias MD [Primary Care Provider] -
[2017-04-21 21:05] LABS: Bilirubin,Urine Negative (Negative); Blood,Urine Negative (Negative); Clarity,Urine Clear (Clear); Color,Urine Yellow (Yellow); Glucose,Urine (UA) Normal (Normal); Ketones,Urine Negative (Negative); Leukocyte Esterase,Urine Trace (Negative); Nitrite,Urine Negative (Negative); Protein,Urine Negative (Neg-Trace); Specific Gravity,Urine 1.014 (1.010-1.025); Urobilinogen,Urine Normal (Normal)
[2017-04-21 21:07] LABS: Bacteria,Urine None Seen per hpf (None-Few); Hyaline Casts,Urine None Seen per lpf (None-Few); RBC,Urine 0-3 per hpf (0-3); Squamous Epithelial Cell,Urine Many per lpf (None-Few)
--- NOTE | 2017-04-22 08:14 | Discharge Summary ---
<Paul Leahy - Last Filed: 04/22/17 11:30> Date of Encounter: 04/22/17 Time of Encounter: 08:14 - Discharge Diagnosis (1) Atrial fibrillation with RVR Priority: Primary Status: Acute (2) Chest pain Priority: Primary Status: Acute Qualifiers: Chest pain type: precordial pain Qualified Code(s): R07.2 - Precordial pain (3) Hypothyroid Priority: Secondary Status: Acute Qualifiers: Hypothyroidism type: unspecified Qualified Code(s): E03.9 - Hypothyroidism , unspecified (4) Coronary artery disease Priority: Secondary Status: Chronic Qualifiers: Coronary Disease-Associated Artery/Lesion type: [place] artery [place] vs. transplanted heart: [place] heart Associated angina: angina presence unspecified Qualified Code(s): I25.10 - Atherosclerotic heart disease of [place] coronary artery without angina pectoris (5) Type 2 diabetes mellitus Priority: Secondary Status: Acute Qualifiers: Diabetes mellitus complication status: without complication Diabetes mellitus usp insulin use: without usp use Qualified Code(s): E11.9 - Type 2 diabetes mellitus without complications (6) DVT prophylaxis Priority: Secondary Status: Acute - Discharge Medications Prescriptions: Sotalol [Betapace] 80 mg PO Q12HR #60 tablet Home Medications: Budesonide/Formoterol 80/4.5 [Symbicort 80/4.5] 2 puff IH BID PRN 12/27/16 [ History] Bupropion HCl [Wellbutrin Xl] 300 mg PO DAILY 12/27/16 [History] Dicyclomine [Bentyl] 40 mg PO QID 12/27/16 [History] Fluticasone Propionate Nasal [Flonase] 50 mcg NS DAILY PRN 12/27/16 [History] Levothyroxine [Synthroid] 224 mcg PO QAM 12/27/16 [History] Loratadine [Claritin] 10 mg PO DAILY PRN 12/27/16 [History] Omeprazole [PriLOSEC] 20 mg PO DAILY PRN 12/27/16 [History] Rivaroxaban [Xarelto] 20 mg PO DAILY 12/27/16 [History] Venlafaxine XR (24 HR) [Effexor Xr] 150 mg PO DAILY 12/27/16 [History] Zolpidem [Ambien] 5 mg PO HS 12/27/16 [History] Aspirin 81 mg PO DAILY #30 tab.chew 12/29/16 [Rx] Nitroglycerin 0.4 mg SL Q5MIN PRN #25 tab.subl 12/29/16 [Rx] Albuterol Sulfate [Proair Hfa] 2 puff IH Q4-6H PRN 04/20/17 [History] Clopidogrel [Plavix] 75 mg PO DAILY 04/20/17 [History] Sotalol [Betapace] 80 mg PO Q12HR #60 tablet 04/22/17 [Rx] Allergies/Adverse Reactions: Allergies Amoxicillin Allergy (Verified 04/20/17 15:49) Rash clavulanic acid [From Augmentin] Allergy (Verified 04/20/17 15:49) Rash clopidogrel [From Plavix] Allergy (Verified 04/20/17 15:49) Rash Ljcapju-Xhd-Yex Reductase Inhibitor [Statins] Allergy (Verified 04/20/17 15:49) Rash Sulfa (Sulfonamide Antibiotics) Allergy (Verified 04/20/17 15:49) Rash amlodipine [From Norvasc] Adverse Reaction (Verified 04/20/17 15:49) Rash latex Adverse Reaction (Verified 04/20/17 15:49) Rash ticagrelor [From Brilinta] Adverse Reaction (Verified 04/20/17 15:53) Diarrhea Date of admission: 04/20/17 17:47 Primary care physician: Harjeet Arias MD Consults: 04/20/17 19:20 Consult to Cardiology [CONS] Routine Comment: Consulting Provider: Giovana Hayward Reason for Consult: 71F with history of afib on sotalol and xarelto, here with RVR, HR to 150. HR down on cardizem drip. Call Completed: No Discharging clinician: Paul Leahy Anticipated date of discharge: 04/22/17 - Patient Status Disposition: Home, Self-Care Condition: Fair Functional capacity at discharge: independent ambulation Overall status at discharge: patient is back to baseline - Discharge Instructions Instructions: Sotalol (By mouth), Atrial Fibrillation (DC) Follow Up With: Giovana Hayward [Provider Group] - 04/30/17 3:45 pm Harjeet Arias MD [Primary Care Provider] - 04/29/17 10:00 am Additional Instructions: 1. Follow-up with your primary care provider in the next 3-5 days 2. Take all prescriptions as prescribed, any concerns or questions contact her primary care provider. 3. Return to the emergency department if: Return of chest pain, palpitations, passing out, nausea vomiting diarrhea or any other concerning medical symptoms or signs. Follow-up as outpt in [address] Nacho Chaudhary. - Diet and Activity Activity: increase activity as tolerated Diet: low fat, low cholesterol, low salt diet Interval History: Ms. Kong is a 71 year old female with history of coronary artery disease status post stent placement in December, atrial fibrillation, asthma, history of CHF, diet-controlled diabetes, hyperlipidemia, hypothyroidism, presents to the emergency department with complaints of chest pain. Upon evaluation she was found to be in atrial fibrillation with rapid ventricular rate with chest discomfort. She is admitted to general medical floor continued on her oral sotalol at 40 mg and started on a Cardizem drip. While on the Cardizem drip for rate was controlled with improvement in her symptoms. While in atrial fibrillation with rapid ventricular rate she did develop some chest pain, nausea vomiting and diaphoresis. EKGs were collected and reviewed that did not demonstrate any changes from her baseline. Troponins were minimally elevated to a high of 0.07. Chest x-ray did not demonstrate any acute findings. Cardiology was consult and was involved in the patient's care. She remained stable with rate control and symptoms are treated. Cardiology increased her dose of sotalol to 80 mg by mouth twice a day which converted her back into sinus bradycardia. The patient remained asymptomatic and remained off the Cardizem drip. On 04/22/2017 she was seen and evaluated the patient bedside and deemed stable to discharge home with close follow-up with cardiology. She was sent home with her prescription of sotalol 80 mg by mouth twice a day and scheduled appointments with her primary care provider and cardiology. Hospital course: Ms. Kong is a 71 year old female - Time Spent with Patient Total time spent providing and/or coordinating discharge services: - Constitutional Vitals: Temp Pulse Resp BP Pulse Ox 98.1 F 53 18 107/69 97 04/22/17 07:34 04/22/17 07:34 04/22/17 07:34 04/22/17 07:34 04/22/17 07:34 General appearance: Present: A&O X 3, pleasant, no acute distress Exam: General: Patient alert, awake, oriented 3, interactive, in no acute distress HEENT: Normocephalic, atraumatic, pupils equal reactive to light, nasal cavity patent and open septum median position, oral mucosa moist, uvula midline, neck supple trachea midline no palpable lymphadenopathy, no thyromegaly. Chest: Symmetric bilateral correlating with respiratory effort, effort nonlabored. Cardiac: Regular rate and rhythm, positive S1, S2, no bruits appreciated bilateral carotids, Radial pulses 2+ bilateral, posterior tibial and dorsal pedal pulses 2+ bilateral. Respiratory: Clear to auscultation all lung breen Abdomen: Soft, nontender, positive bowel sounds, no palpable masses appreciated on examination Extremities: Symmetric bilateral, no erythema or edema, patient moving all 4 extremities spontaneously. Neurologic: No focal deficits appreciated on examination. Face symmetric, muscle strength symmetric bilateral upper and lower extremities. <Santiago King - Last Filed: 04/22/17 14:41> Date of Encounter: 04/22/17 Procedures/tests Complete & Pending: Procedures Performed prior 72 hours Category Date Time Status ECG 12 lead ECG [ECG] Routine Y 04/20/17 22:57 Completed ECG 12 lead ECG [ECG] Routine Y 04/21/17 11:17 Completed ECG 12 lead ECG [ECG] Routine Y 04/22/17 09:25 Completed Date of admission: 04/20/17 17:47 Primary care physician: Harjeet Arias MD Consults: 04/20/17 19:20 Consult to Cardiology [CONS] Routine Comment: Consulting Provider: Cardiology Yesy Reason for Consult: 71F with history of afib on sotalol and xarelto, here with RVR, HR to 150. HR down on cardizem drip. Call Completed: No Hospital course: Ms. Kong is a 71 year old female - Time Spent with Patient Total time spent providing and/or coordinating discharge services: - Constitutional Vitals: Temp Pulse Resp BP Pulse Ox 98.6 F 49 18 105/54 98 04/22/17 11:46 04/22/17 11:46 04/22/17 11:46 04/22/17 11:46 04/22/17 11:46 - Attending Attestation I saw and examined pt. I have discussed with Resident Dr Pagan regarding pt's management plan. I agree with the documentation. Pt doing fine. Denies SOB or chest pain. Sotalol 80mg bid resumed per cardio. Pt is on sinus rhythm with HR 55. Cardio cleared to d/c.
[2017-04-22] MEDS: BuPROPion XL (24 HR) 150 MG TABLET PO SCH (08:32)
[2017-04-22] MEDS: *HR* Rivaroxaban 15 MG TABLET PO SCH (08:33)
[2017-04-22] MEDS: Venlafaxine XR (24 HR) 150 MG CAP.ER.24H PO SCH (08:33)
[2017-04-22] MEDS: Insulin LISPRO 300 UNITS/3 ML VIAL SQ SCH (08:33)
[2017-04-22] MEDS: Aspirin 81 MG TAB.CHEW PO SCH (08:33)
[2017-04-22 08:52] LABS: BUN/Creatinine Ratio 18 (6-26); Blood Urea Nitrogen 18 mg/dL (7-20); Calcium 8.9 mg/dL (8.6-10.8); Carbon Dioxide 25 mEq/L (19-29); Chloride 106 mEq/L (98-109); Glucose 200 mg/dL (70-99); Osmolality,Calculated 294 (280-300); Sodium 138 mEq/L (136-145); eGFR For African Americans > 60 (> 60); eGFR For Non-African Americans 56 (> 60)
--- NOTE | 2017-04-22 09:49 | Cardiology Progress Note ---
Date of Encounter: 04/22/17 Time of Encounter: 09:47 Assessment and Plan (1) A-fib Current Visit: Yes Status: Chronic Known hx of PAF, previously on Sotalol 40mg BID. Recurrence, so dose was increased yesterday to 80mg BID. Pt was in RVR, on Cardizem gtt as well until 1900 last night after converting to SR. Sinus rhythm at bedside with HR high 40s-low 60s. Pt denies any dizziness or lightheadedness. EKGs reviewed. QTc remains <500ms. Anticoagulated on Xarelto. Cardiology signing off. Reconsult PRN. Follow-up as outpt in [address] Nacho Chaudhary. Will coordinate. Qualifiers: Atrial fibrillation type: paroxysmal Qualified Code(s): I48.0 - Paroxysmal atrial fibrillation (2) Coronary artery disease Current Visit: Yes Status: Chronic [facility] 12/2016 showed severe 1 vessel CAD, PTCA/JAVI to prox-mid LAD. ASA and Plavix uninterrupted x 1 year. Continue BB, unable to tolerate statin. Pt is on triple therapy--on Xarelto for A-Fib. No evidence of bleeding. Qualifiers: Coronary Disease-Associated Artery/Lesion type: [place] artery [place] vs. transplanted heart: [place] heart Associated angina: angina presence unspecified Qualified Code(s): I25.10 - Atherosclerotic heart disease of [place] coronary artery without angina pectoris Discussion w patient/family: The assessment and plan as outlined above was discussed with the patient and/or family members who expressed understanding and agreement. All questions were answered. Thank you for involving us in the care of your patient. Please call with any questions. I will discuss all the above with Dr. Cole and make changes as necessary. Subjective Principal diagnosis: A-Fib Interval history: Pt now in SR on increased Sotalol dose 80mg BID. Cardizem gtt turned off at 1900. HR high 40s-60s at bedside. Pt denies any acute complaints, denies dizziness or lightheadedness. EKGs reviewed--QTc remains <500ms. Objective Vital Signs, Last 4 Hours Temp Pulse Resp BP Pulse Ox 04/22/17 07:34 98.1 F 53 18 107/69 97 Vital Signs Temp Pulse Resp BP Pulse Ox 04/22/17 07:34 98.1 F 53 18 107/69 97 04/22/17 04:34 98.4 F 70 17 123/58 96 04/22/17 00:06 98.7 F 62 17 122/57 97 04/21/17 15:04 97.9 F 82 16 128/89 82 04/21/17 11:30 98.1 F 66 18 120/75 96 Intake and Output 04/21/17 04/22/17 04/22/17 23:59 07:59 15:59 Intake Total 310 / 310 Balance 310 / 310 Intake: IV Fluids 70 / 70 Cardizem 125 MG In 70 / 70 Dextrose 5% 100 ML @ 5 MG /HR 5 mls/hr IVC .Q24H SHIELA Rx#:[id number] Oral 240 / 240 Other: Meal Dinner Percent of Meal Consumed 50% # Voids 2 Weight 75 kg Blood Glucose* 182 195 Patient Weight 04/22/17 23:59 Weight 75 kg General: Conversant, No Apparent Distress HEENT: Atraumatic, Normocephaly, Mucus Membranes Moist Neck: No JVD, Normal carotid pulses Cardiac: Reg Rate and Rhythm, Normal S1 and S2, No Murmur Lungs: Normal Breath Sounds, No Wheeze, Rales, Rhonchi Neuro: Alert and responsive, No focal deficits noted Abdomen: Soft, Non-Tender Skin: No rashes noted on visualized skin Musculoskeletal: No Chest Wall Tenderness Extremities: No Clubbing, No Cyanosis, No Edema, Normal Pulses Results 04/21/17 04:00 04/22/17 07:57 Lab Results 04/21/17 04/22/17 11:35 07:57 Sodium 138 Potassium 4.0 Chloride 106 Carbon Dioxide 25 BUN 18 Creatinine 0.98 Glucose 200 H Calcium 8.9 Troponin I 0.05 H* BMP 04/22/17 Range/Units 07:57 Sodium 138 (136-145) mEq/L Potassium 4.0 (3.5-4.5) mEq/L Chloride 106 (98-109) mEq/L Carbon Dioxide 25 (19-29) mEq/L BUN 18 (7-20) mg/dL Creatinine 0.98 (0.57-1.11) mg/dL Glucose 200 H (70-99) mg/dL Calcium 8.9 (8.6-10.8) mg/dL Cardiac Enzymes 04/21/17 Range/Units 11:35 Troponin I 0.05 H* (0-0.03) ng/mL Urine 04/21/17 Range/Units 21:00 Urine Color Yellow (Yellow) Urine Clarity Clear (Clear) Urine pH 6.0 (5.0-8.0) pH Units Ur Specific [place] 1.014 (1.010-1.025) Urine Protein Negative (Neg-Trace) mg/dL Urine Glucose (UA) Normal (Normal) mg/dL Active Medications Acetaminophen (Tylenol) 650 mg PO Q6HR PRN PRN Reason: Mild Pain (1-3) Stop: 10/20/17 17:48 Last Admin: 04/21/17 03:40 Dose: 650 mg Aspirin (Aspirin) 81 mg PO DAILY SHIELA Stop: 10/21/17 09:01 Last Admin: 04/22/17 08:33 Dose: 81 mg Bupropion HCl (Wellbutrin Xl) 300 mg PO DAILY SHIELA Stop: 10/21/17 09:01 Last Admin: 04/22/17 08:32 Dose: 300 mg Clopidogrel Bisulfate (Plavix) 75 mg PO DAILY SHIELA Stop: 10/21/17 09:01 Last Admin: 04/22/17 08:32 Dose: 75 mg Dextrose/Water (Dextrose 50% (Syg)) 25 ml IVP AD PRN PRN Reason: Hypoglycemia Stop: 10/20/17 19:23 Dicyclomine HCl (Bentyl) 40 mg PO QID SHIELA Stop: 10/20/17 21:01 Last Admin: 04/21/17 21:13 Dose: 40 mg Docusate Sodium (Colace) 100 mg PO BID PRN PRN Reason: Constipation Stop: 10/20/17 17:48 Fluticasone Propionate (Flonase) 50 mcg NS DAILY PRN; Protocol PRN Reason: Allergy Symptoms Stop: 10/20/17 17:52 Glucagon (Glucagen) 1 mg IM ONCE PRN PRN Reason: Hypoglycemia Stop: 10/20/17 19:23 Glucose (Gluctose) 15 gm PO ONCE PRN PRN Reason: Hypoglycemia Stop: 10/20/17 19:23 Glucose (Gluctose) 30 gm PO ONCE PRN PRN Reason: Hypoglycemia Stop: 10/20/17 19:23 Diltiazem HCl 125 mg/ Dextrose 125 mls @ 5 mls/hr IVC .Q24H SHIELA; 5 MG/HR PRN Reason: Protocol Stop: 10/20/17 15:01 Last Titration: 04/21/17 19:00 Dose: 0 mg/hr, 0 mls/hr Dextrose (Dextrose 5%) 1,000 mls @ 100 mls/hr IVC .Q10H PRN PRN Reason: HYPOGLYCEMIA Stop: 10/20/17 19:23 Insulin Human Lispro (Humalog) 0 units SQ TIDAC SHIELA PRN Reason: Protocol Stop: 10/21/17 07:31 Last Admin: 04/22/17 08:33 Dose: 4 units Insulin Human Lispro (Humalog) 0 units SQ HS SHIELA PRN Reason: Protocol Stop: 10/20/17 21:01 Last Admin: 04/21/17 21:14 Dose: Not Given Levothyroxine Sodium (Synthroid) 200 mcg PO DAILY@0630 [facility] Stop: 10/22/17 06:31 Last Admin: 04/22/17 06:42 Dose: 200 mcg Loratadine (Claritin) 10 mg PO DAILY PRN; Protocol PRN Reason: Allergy Symptoms Stop: 10/20/17 17:52 Naloxone HCl (Narcan) 0.4 mg IVP Q2MIN PRN PRN Reason: Opioid Reversal Stop: 10/20/17 17:48 Nitroglycerin (Nitroglycerin) 0.4 mg SL Q5MIN PRN PRN Reason: Chest Pain Stop: 10/20/17 17:52 Last Admin: 04/21/17 11:07 Dose: 0.4 mg Omeprazole (Prilosec) 20 mg PO DAILY SHIELA PRN Reason: Protocol Stop: 10/20/17 17:52 Last Admin: 04/22/17 08:33 Dose: 20 mg Rivaroxaban (Xarelto) 15 mg PO DAILY [facility] Stop: 10/21/17 09:01 Last Admin: 04/22/17 08:33 Dose: 15 mg Sotalol HCl (Betapace) 80 mg PO Q12HR [facility] Stop: 10/21/17 18:01 Last Admin: 04/22/17 06:42 Dose: 80 mg Venlafaxine HCl (Effexor Xr) 150 mg PO DAILY SHIELA PRN Reason: Protocol Stop: 10/21/17 09:01 Last Admin: 04/22/17 08:33 Dose: 150 mg Zolpidem Tartrate (Ambien) 5 mg PO HS [facility] PRN Reason: Protocol Stop: 10/20/17 21:01 Last Admin: 04/21/17 21:13 Dose: 5 mg - Imaging and Cardiology Echo: report reviewed Cardiac cath: report reviewed - EKG Interpretation EKG results cardiology: personally reviewed Consult Discharge Plan - Plan Referrals: Cardiology [facility] [Provider Group] - 04/30/17 3:45 pm Harjeet Arias MD [Primary Care Provider] - 04/29/17 10:00 am
[2017-04-22 11:50] VITALS: BP 105/54
--- NOTE | 2017-04-22 16:48 | Electrocardiograph Report ---
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
--- NOTE | 2017-04-22 17:48 | Electrocardiograph Report ---
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
--- NOTE | 2017-04-22 18:09 | Electrocardiograph Report ---
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
--- NOTE | 2017-04-23 18:41 | Electrocardiograph Report ---
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
== END 2017-04-22 13:20 | disposition home or self-care (01) | DRG 310 ==
LOC: EMEROO 14:37 → 3BNU 14:37 → 2NENU 16:22 → SUATTDRO 17:47
PROVIDERS: ADMIT Nurse Practitioner Family; ATTEND Internal Medicine

== ENCOUNTER 2018-03-28 22:01 | Observation (INO) ==
[2018-03-28] MEDS ORDERED: Aspirin 81 MG TAB.CHEW PO ONE (22:24)
[2018-03-28 22:41] LABS: Basophils # 0.1 K/mcL (0.0-0.2); Basophils % 0.6 %; Eosinophils # 0.1 K/mcL (0.0-0.6); Eosinophils % 1.4 %; Hematocrit 36.4 % (35.3-44.9); Immature Granulocytes % 0.2 % (0-4); Lymphocytes # 3.2 K/mcL (0.6-4.6); Lymphocytes % 36.8 %; Mean Corpuscular HGB Conc 35.7 g/dL (31.6-35.5); Mean Corpuscular Hemoglobin 32.3 pg (28.0-33.3); Mean Corpuscular Volume 90.5 fL (83.0-100.0); Mean Platelet Volume 10.9 fL (9.4-12.4); Monocytes # 0.5 K/mcL (0.0-1.3); Monocytes % 5.8 %; Neutrophils # 4.8 K/mcL (1.6-8.9); Platelet Count 181 K/mcL (140-400); Red Blood Count 4.02 M/mcL (3.82-4.97); Red Cell Distribution Width 12.5 % (11.5-14.5); Segmented Neutrophils % 55.2 %
[2018-03-28 23:03] LABS: BUN/Creatinine Ratio 9 (6-26); Blood Urea Nitrogen 10 mg/dL (8-23); Calcium 9.4 mg/dL (8.6-10.3); Carbon Dioxide 22 mEq/L (23-29); Chloride 108 mEq/L (98-107); Glucose 195 mg/dL (70-105); Osmolality,Calculated 288 (280-300); Potassium 3.8 mEq/L (3.5-5.1); Sodium 137 mEq/L (136-145); Troponin I < 0.03 ng/mL (< 0.04); eGFR For African Americans 59 (> 60); eGFR For Non-African Americans 49 (> 60)
--- NOTE | 2018-03-28 23:26 | Emergency Department Note ---
Disposition Clinical Impression: Elevated TSH, PAF (paroxysmal atrial fibrillation) Chest pain Qualifiers: Chest pain type: unspecified Qualified Code(s): R07.9 - Chest pain, unspecified Disposition: Admitted As Inpatient Condition: Good Referrals: Harjeet Arias MD [Primary Care Provider] - Forms: ED Satisfaction Letter Time of Disposition: 02:11 Chest Pain HPI - General Chief Complaint: ED Chest Pain Stated Complaint: chest pain Time Seen by Provider: 03/28/18 22:22 Source: patient Limitations: no limitations Vital Signs Reviewed: Yes Nursing Notes Reviewed: Yes - History of Present Illness HPI Narrative: Patient is a 72-year-old female smoker that presents with complaint of chest pain, that she describes was accompanied with diaphoresis, and jaw pain. She compares the symptoms to her previous episodes of A. fib. She had no relief after 2 nitroglycerin area. She denies any shortness of breath, or worsening on exertion. She does describe a history of [place], and stents placed one year ago. She mentioned she was previously taken Xarelto, however she discontinued this approximately 2 months ago due to the cost. She does mention she is taking Efiant and a baby aspirin. 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 She does mention she is compliant with her thyroid medication. She mentions that she has allergies to Cardizem, and pretensive and hyperlipidemia medications. She denies any fever, cough, weakness, confusion, voice changes, facial asymmetry, hemoptysis, leg swelling. Severity scale (1-10): 8 - Related Data Home Medications Medication Instructions Recorded Confirmed Bupropion HCl [Wellbutrin Xl] 300 mg PO DAILY 12/27/16 03/28/18 Fluticasone Propionate Nasal 50 mcg NS DAILY PRN 12/27/16 03/28/18 [Flonase] Levothyroxine [Synthroid] 175 mcg PO QAM 12/27/16 03/28/18 Loratadine [Claritin] 10 mg PO DAILY PRN 12/27/16 03/28/18 Omeprazole [PriLOSEC] 20 mg PO DAILY PRN 12/27/16 03/28/18 Venlafaxine XR (24 HR) [Effexor Xr] 150 mg PO DAILY 12/27/16 03/28/18 Zolpidem [Ambien] 5 mg PO HS 12/27/16 03/28/18 Albuterol Sulfate [Proair Hfa] 2 puff IH Q4-6H PRN 04/20/17 03/28/18 Prasugrel [Effient] 10 mg PO DAILY 07/15/17 03/28/18 Dicyclomine [Bentyl] 20 PO 3-4XD PRN 03/28/18 03/28/18 Previous Rx's Medication Instructions Recorded Aspirin 81 mg PO DAILY #30 tab.chew 12/29/16 Sotalol [Betapace] 80 mg PO Q12HR #60 tablet 04/22/17 Allergies Allergy/AdvReac Type Severity Reaction Status Date / Time Amoxicillin Allergy Rash Verified 04/20/17 15:49 clavulanic acid Allergy Rash Verified 04/20/17 15:49 [From Augmentin] clopidogrel [From Plavix] Allergy Rash Verified 04/20/17 15:49 Waofelj-Tsk-Zzk Reductase Allergy Rash Verified 04/20/17 15:49 Inhibitor [Statins] Sulfa (Sulfonamide Allergy Rash Verified 04/20/17 15:49 Antibiotics) amlodipine [From Norvasc] AdvReac Rash Verified 04/20/17 15:49 diltiazem [From Cardizem] AdvReac Itching Verified 03/28/18 23:52 latex AdvReac Rash Verified 04/20/17 15:49 ticagrelor [From Brilinta] AdvReac Diarrhea Verified 04/20/17 15:53 All systems ED: reviewed and negative except as stated. Review of Systems: As Per HPI Constitutional: Denies: fever, chills, weakness Eyes: Denies: eye discharge ENT ED: Denies: dysphagia Cardiovascular: Reports: as per HPI Respiratory: Reports: as per HPI. Denies: dyspnea Gastrointestinal: Denies: abdominal pain, nausea, vomiting Genitourinary: Denies: dysuria Musculoskeletal: Denies: back pain, neck pain Integumentary: Denies: rash Neurological: Denies: headache Endocrine: Denies: fatigue Hematological/Lymphatic: Denies: easy bleeding Allergic/Immunologic: Denies: facial swelling Chest Pain PMH - Past Medical History Medical history: Reports: asthma, CHF, coronary artery disease, diabetes, GERD, hyperlipidemia, myocardial infarction, renal disease, thyroid disease Surgical history: Reports: appendectomy, cataract, cholecystectomy, orthopedic, other, sinus surgery, RAE/BSO Psychiatric history: Reports: anxiety, depression - Social History Smoking Status: Current every day smoker Alcohol use: Reports: none Drug use: Reports: none Physical Exam - General Limitations: no limitations General appearance: alert, in no apparent distress, anxious - Head Head exam: atraumatic, normocephalic - Eye Eye exam: Present: normal appearance. Absent: EOMI, conjunctival injection - ENT ENT exam: normal oropharynx, mucous membranes moist - Neck Neck exam: Present: normal inspection, full ROM - Chest Chest inspection: Present: normal inspection, symmetric chest wall rise. Absent : tenderness - Respiratory Respiratory exam: Present: normal lung sounds bilaterally. Absent: respiratory distress, wheezes, stridor - Cardiovascular Cardiovascular exam: Present: tachycardia, irregular rhythm - Abdominal Exam Abdominal exam: Present: soft, Non-Tender - Extremities Exam Extremities exam: Present: normal inspection, full ROM, normal capillary refill - Back Exam Back exam: Present: full ROM - Neurological Exam Neurological exam: Present: alert, oriented X3 - Expanded Neurological Exam Patient oriented to: Present: person, place, time Speech: Present: fluid speech Cranial nerves: EOM function (II, III, IV, ): Normal, facial palsy (VII): Normal, gag reflex (IX): Normal, tongue deviation (XII): Normal Cerebellar function: finger to nose: Normal, heel to cornejo: Normal Motor strength - LUE: 5/5 Motor strength - RUE: 5/5 Motor strength - LLE: 5/5 Motor strength - RLE: 5/5 Coma Scale Eye Opening: Spontaneous Coma Scale Motor Response: Obeys Commands Coma Scale Verbal Response: Oriented Coma Scale Total: 15 - Psychiatric Psychiatric exam: Present: normal affect, normal mood - Skin Skin exam: Present: warm, dry, intact, normal color. Absent: rash, cyanosis, diaphoresis Course Course Narrative: Patient presents with chest pain. She said initially her symptoms started with chest tightness, jaw pain that started around 9 PM prior to her arrival. She states that her chest pain worsened upon arriving here in the department. She had no relief after two nitroglycerin taken priort to arriva. ., and she has known history of A. fib, RVR. Heart tachycardic irregular. She declines analgesics. Workup initiated. - Reevaluation(s) Reevaluation #1: EKG Shows A. fib, RVR. Patient's home medications include sotalol, which she describes as take one day. She did have a lesion approximately 8 months ago, after which she had her sotalol dose decreased to once daily from twice daily. Patient mentions that she has a reaction to Cardizem, describes it as itching. She denies any anaphylactic reactions. I did discuss patient with Dr. Granger , we will attempt to premedicate with Benadryl, and start with a Cardizem drip. I did discuss this with patient and she was in agreement. We will attempt to control patient's A. fib. TSH is also elevated although patient states compliance with her Synthroid medication. Patient has been noncompliant with her sister all toe. She also had chest pain, and jaw pain earlier today. Initial troponin negative. However, we will plan for hospital admission for Chest pain, Afib. Patient states her chest and jaw pain is improving, she continues to deny analgesics. Time: 00:12 Reevaluation #2: Patient had received Benadryl, but not Cardizem. Repeat examination, normal heart rate appears to be regular. Repeat EKG shows no A. fib. Patient states her symptoms have improved. We are waiting hospitalist call, for request for admission for ACS rule out Time: 01:11 Reevaluation #3: Patient discussed with and accepted by hospitalist Dr. King. Time: 02:07 Vital Signs Temperature 97.8 F 03/28/18 22:02 Pulse Rate 94 03/28/18 22:02 Respiratory Rate 20 03/28/18 22:02 Blood Pressure 104/81 03/28/18 22:02 O2 Sat by Pulse Oximetry 94 03/28/18 22:02 Temperature 97.8 F 03/28/18 22:26 Pulse Rate 65 03/29/18 01:58 Respiratory Rate 20 03/29/18 01:58 Blood Pressure 149/82 03/29/18 01:05 O2 Sat by Pulse Oximetry 98 03/29/18 01:58 Oxygen Delivery Oxygen Delivery Room Air Chest Pain - MDM Narrative Medical decision making narrative: Patient is a 72-year-old female with known history of A. fib, presented with chest pain. This had no relief with nitroglycerin, and had worsened here in the department. EKG did show A. fib with RVR. Upon discussion with patient, she mentioned she had reactions to metoprolol, as well as Cardizem, describing them as itching. She had no symptoms of anaphylaxis based on her description. She was agreeable to a premedicated dose of Benadryl, and we had planned to start Cardizem as well, however after Benadryl before Cardizem, her heart rate had improved, and repeat EKG showed sinus rhythm with sinus arrhythmia. Cardizem was not given during her course here. Troponin has been within normal limits. However due to her chest pain, risk factors, noncompliance with urology , and elevated TSH, patient will be admitted. She was accepted by the hospitalist for further evaluation. Patient discussed with Dr. Granger who also had face time with patient, and agreed with workup, and disposition. Chest X-Ray 03/28/18 22:08 IMPRESSION: No acute disease. D/ / Jacey Butler Cha, MD / Jacey Butler Cha, MD Interpreting Provider: Jacey Butler Cha, MD Laboratory Tests 03/28/18 03/28/18 03/28/18 22:19 22:19 22:19 WBC 8.7 RBC 4.02 Hgb 13.0 Hct 36.4 MCV 90.5 MCH 32.3 MCHC 35.7 H RDW 12.5 Plt Count 181 MPV 10.9 Immature Gran % 0.2 Seg Neutrophils % 55.2 Lymphocytes % 36.8 Monocytes % 5.8 Eosinophils % 1.4 Basophils % 0.6 Neutrophils # 4.8 Lymphocytes # 3.2 Monocytes # 0.5 Eosinophils # 0.1 Basophils # 0.1 PT 10.1 INR 0.9 APTT 30.9 Sodium 137 Potassium 3.8 Chloride 108 H Carbon Dioxide 22 L BUN 10 Creatinine 1.10 Est GFR ( Amer) 59 L Est GFR (Non-Af Amer) 49 L BUN/Creatinine Ratio 9 Glucose 195 H Calculated Osmolality 288 Calcium 9.4 Troponin I < 0.03 TSH 34.184 H - Lab Data Lab results reviewed: Yes I reviewed the patient's lab results. Result diagrams: 03/28/18 22:19 03/28/18 22:19 Lab Results 03/28/18 03/28/18 03/28/18 Range/Units 22:19 22:19 22:19 WBC 8.7 (4.3-11.1) K/mcL RBC 4.02 (3.82-4.97) M/mcL Hgb 13.0 (11.5-15.4) g/dL Hct 36.4 (35.3-44.9) % MCV 90.5 (83.0-100.0) fL MCH 32.3 (28.0-33.3) pg MCHC 35.7 H (31.6-35.5) g/dL RDW 12.5 (11.5-14.5) % Plt Count 181 (140-400) K/mcL MPV 10.9 (9.4-12.4) fL Immature Gran % 0.2 (0-4) % Seg Neutrophils % 55.2 % Lymphocytes % 36.8 % Monocytes % 5.8 % Eosinophils % 1.4 % Basophils % 0.6 % Neutrophils # 4.8 (1.6-8.9) K/mcL Lymphocytes # 3.2 (0.6-4.6) K/mcL Monocytes # 0.5 (0.0-1.3) K/mcL Eosinophils # 0.1 (0.0-0.6) K/mcL Basophils # 0.1 (0.0-0.2) K/mcL PT 10.1 (9.4-12.1) Seconds INR 0.9 APTT 30.9 (26.0-36.0) Seconds Sodium 137 (136-145) mEq/L Potassium 3.8 (3.5-5.1) mEq/L Chloride 108 H (98-107) mEq/L Carbon Dioxide 22 L (23-29) mEq/L BUN 10 (8-23) mg/dL Creatinine 1.10 (0.60-1.20) mg/dL Est GFR ( Amer) 59 L (> 60) Est GFR (Non-Af Amer) 49 L (> 60) BUN/Creatinine Ratio 9 (6-26) Glucose 195 H (70-105) mg/dL Calculated Osmolality 288 (280-300) Calcium 9.4 (8.6-10.3) mg/dL Troponin I < 0.03 (< 0.04) ng/mL TSH 34.184 H (0.340-5.600) mcIU/mL - Radiology Data Radiology results reviewed: Yes I reviewed the patient's radiology results. - EKG Data EKG attestation: Yes I reviewed and interpreted this EKG. EKG results narrative: Initial EKG A. fib, with RVR, ventricular rate 125, nonspecific ST and T-wave abnormalities, on repeat EKG, sinus rhythm 66/m, sinus arrhythmia, ST deviation moderate T-wave abnormality. Heart Score - Score History: Slightly Suspicious EKG: Non Specific repolarisation Disturbance Age: Greater than 65 Risk Factors: Equal/Greater than 3 risk factor or history of atherosclerotic disease Troponin: Less than normal limit HEART Score Total: 5
[2018-03-28 23:51] LABS: INR 0.9; Prothrombin Time 10.1 Seconds (9.4-12.1)
[2018-03-28 23:53] LABS: Activated Partial Thrombo Time 30.9 Seconds (26.0-36.0)
[2018-03-29 00:02] LABS: Thyroid Stimulating Hormone 34.184 mcIU/mL (0.340-5.600)
--- NOTE | 2018-03-29 02:40 | Emergency Department Note ---
Disposition Clinical Impression: Elevated TSH, PAF (paroxysmal atrial fibrillation) Chest pain Qualifiers: Chest pain type: unspecified Qualified Code(s): R07.9 - Chest pain, unspecified Disposition: Admitted As Inpatient Condition: Good General Adult HPI - General Chief complaint: ED Chest Pain Stated complaint: chest pain Time Seen by Provider: 03/28/18 22:22 Source: patient Limitations: no limitations Nursing Notes Reviewed: Yes Vital Signs Reviewed: Yes - History of Present Illness Pain Scale: 8 - Related Data Home Medications Medication Instructions Recorded Confirmed Bupropion HCl [Wellbutrin Xl] 300 mg PO DAILY 12/27/16 03/28/18 Fluticasone Propionate Nasal 50 mcg NS DAILY PRN 12/27/16 03/28/18 [Flonase] Levothyroxine [Synthroid] 175 mcg PO QAM 12/27/16 03/28/18 Loratadine [Claritin] 10 mg PO DAILY PRN 12/27/16 03/28/18 Omeprazole [PriLOSEC] 20 mg PO DAILY PRN 12/27/16 03/28/18 Venlafaxine XR (24 HR) [Effexor Xr] 150 mg PO DAILY 12/27/16 03/28/18 Zolpidem [Ambien] 5 mg PO HS 12/27/16 03/28/18 Albuterol Sulfate [Proair Hfa] 2 puff IH Q4-6H PRN 04/20/17 03/28/18 Prasugrel [Effient] 10 mg PO DAILY 07/15/17 03/28/18 Dicyclomine [Bentyl] 20 PO 3-4XD PRN 03/28/18 03/28/18 Previous Rx's Medication Instructions Recorded Aspirin 81 mg PO DAILY #30 tab.chew 12/29/16 Sotalol [Betapace] 80 mg PO Q12HR #60 tablet 04/22/17 Allergies Allergy/AdvReac Type Severity Reaction Status Date / Time Amoxicillin Allergy Rash Verified 04/20/17 15:49 clavulanic acid Allergy Rash Verified 04/20/17 15:49 [From Augmentin] clopidogrel [From Plavix] Allergy Rash Verified 04/20/17 15:49 Dlwtbli-Pxr-Voo Reductase Allergy Rash Verified 04/20/17 15:49 Inhibitor [Statins] Sulfa (Sulfonamide Allergy Rash Verified 04/20/17 15:49 Antibiotics) amlodipine [From Norvasc] AdvReac Rash Verified 04/20/17 15:49 diltiazem [From Cardizem] AdvReac Itching Verified 03/28/18 23:52 latex AdvReac Rash Verified 04/20/17 15:49 ticagrelor [From Brilinta] AdvReac Diarrhea Verified 04/20/17 15:53 Constitutional: Denies: fever, chills, weakness Eyes: Denies: eye discharge ENT ED: Denies: dysphagia Cardiovascular: Reports: as per HPI Respiratory: Reports: as per HPI. Denies: dyspnea Gastrointestinal: Denies: abdominal pain, nausea, vomiting Genitourinary: Denies: dysuria Musculoskeletal: Denies: back pain, neck pain Integumentary: Denies: rash Neurological: Denies: headache Endocrine: Denies: fatigue Hematological/Lymphatic: Denies: easy bleeding Allergic/Immunologic: Denies: facial swelling Past Medical History - Past Medical History Medical history: Reports: asthma, CHF, coronary artery disease, diabetes, GERD, hyperlipidemia, myocardial infarction, renal disease, thyroid disease Surgical history: Reports: appendectomy, cataract, cholecystectomy, orthopedic, other, sinus surgery, RAE/BSO Psychiatric history: Reports: anxiety, depression - Social History Smoking Status: Current every day smoker Smokeless Tobacco Status: No Alcohol use: Reports: none Drug use: Reports: none Physical Exam - General Limitations: no limitations General appearance: alert, in no apparent distress, anxious Course Vital Signs Temperature 97.8 F 03/28/18 22:02 Pulse Rate 94 03/28/18 22:02 Respiratory Rate 20 03/28/18 22:02 Blood Pressure 104/81 03/28/18 22:02 O2 Sat by Pulse Oximetry 94 03/28/18 22:02 Temperature 97.8 F 03/28/18 22:26 Pulse Rate 65 03/29/18 01:58 Respiratory Rate 20 03/29/18 01:58 Blood Pressure 149/82 03/29/18 01:05 O2 Sat by Pulse Oximetry 98 03/29/18 01:58 Oxygen Delivery Oxygen Delivery Room Air Medical Decision Making - Lab Data Result diagrams: 03/28/18 22:19 03/28/18 22:19 Lab Results 03/28/18 03/28/18 03/28/18 Range/Units 22:19 22:19 22:19 WBC 8.7 (4.3-11.1) K/mcL RBC 4.02 (3.82-4.97) M/mcL Hgb 13.0 (11.5-15.4) g/dL Hct 36.4 (35.3-44.9) % MCV 90.5 (83.0-100.0) fL MCH 32.3 (28.0-33.3) pg MCHC 35.7 H (31.6-35.5) g/dL RDW 12.5 (11.5-14.5) % Plt Count 181 (140-400) K/mcL MPV 10.9 (9.4-12.4) fL Immature Gran % 0.2 (0-4) % Seg Neutrophils % 55.2 % Lymphocytes % 36.8 % Monocytes % 5.8 % Eosinophils % 1.4 % Basophils % 0.6 % Neutrophils # 4.8 (1.6-8.9) K/mcL Lymphocytes # 3.2 (0.6-4.6) K/mcL Monocytes # 0.5 (0.0-1.3) K/mcL Eosinophils # 0.1 (0.0-0.6) K/mcL Basophils # 0.1 (0.0-0.2) K/mcL PT 10.1 (9.4-12.1) Seconds INR 0.9 APTT 30.9 (26.0-36.0) Seconds Sodium 137 (136-145) mEq/L Potassium 3.8 (3.5-5.1) mEq/L Chloride 108 H (98-107) mEq/L Carbon Dioxide 22 L (23-29) mEq/L BUN 10 (8-23) mg/dL Creatinine 1.10 (0.60-1.20) mg/dL Est GFR ( Amer) 59 L (> 60) Est GFR (Non-Af Amer) 49 L (> 60) BUN/Creatinine Ratio 9 (6-26) Glucose 195 H (70-105) mg/dL Calculated Osmolality 288 (280-300) Calcium 9.4 (8.6-10.3) mg/dL Troponin I < 0.03 (< 0.04) ng/mL TSH 34.184 H (0.340-5.600) mcIU/mL Attestation Statement - Attestation Attestation: I, Ron Granger MD, personally evaluated this patient and discussed their management with the midlevel provicer, 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 I reviewed the midlevel provider 's note and agree with the documented findings, medical decision making, and plan of care. 72-year-old female presents to the emergency department with a complaint of chest pain associated with profuse diaphoresis. She states the pain started in her jaws then moved down into the upper chest. She describes it as just a pressure and heaviness in her chest. She denies shortness of breath with the episode. She did have palpitations. On arrival here the patient was in atrial fibrillation with RVR. On examination patient is a well-developed well-nourished elderly female in no acute distress. She is alert and oriented 3. There is no cyanosis or diaphoresis. Breath sounds are clear and equal bilaterally. Heart regular rate and rhythm. Abdomen is soft and nontender with normal bowel sounds. Initial EKG showed atrial fibrillation with RVR. Repeat EKG showed a normal sinus rhythm. Patient converted spontaneously. Labs reviewed. Troponin negative. The hospitalist, Dr. King, was consulted and accepted admission of the patient.
--- NOTE | 2018-03-29 02:44 | Internal Med History&Physical ---
<Gaston Chapman - Last Filed: 03/29/18 03:28> Date of Encounter: 03/29/18 Time of Encounter: 02:00 Internal Medicine - H&P: HPI Chief complaint: chest pain Admitted From: Emergency Dept Plans for Post Hospital Care: Home History of present illness: Ms. Kong is a 72 year old female past medical history STEMI with PTCA/JAVI to proximal-mid LAD, A. fib with RVR noncompliant with the Xeralto, hypothyroid, type 2 diabetes, MS presents today for chest pain started at 2200. The patient was sitting and working on her quilt when pressure-like chest pain started. This pain reminder her of her previous [place], therefore she came to ED. She reports that pain started with jaw then radiated to the chest. Pain is substernal and does not radiate to shoulders or back, and was 8/10. Chest pain was also accompanied by diaphoresis but no shortness of breath. The patient took 2 nitroglycerin which relieved the pain. Current chest pain is 0 out of 10. At ED, the patient received aspirin, potassium, diphenhydramine. The patient does report history of poor reaction to diltiazem, previously taking Xarelto but discontinued due to inability to afford it 2 months ago. She denies any fever, chills, nausea, vomiting, weakness, confusion, facial droop, cough, abdominal pain, hematuria/dysuria, diarrhea, constipation, leg swelling. . Past Med Surg Social Fam HX - Past Medical History Medical history: asthma, CHF, coronary artery disease, diabetes, GERD, hyperlipidemia, myocardial infarction, renal disease, thyroid disease Psychiatric history: anxiety, depression - Past Surgical History Surgical History: appendectomy, cataract, cholecystectomy, orthopedic, other, sinus surgery, RAE/BSO - Social History Smoking Status: Current every day smoker Smokeless Tobacco Status: No Alcohol use: none Drug use: none - Family History Mother Adopted: No Family Member Ethnicity: Non- Living Status: Still Living Hx Family Cardiac Disorders: No Hx Family Respiratory Disorders: No Hx Family Cancer: No Hx Family GI Disorders: No Hx Family Endocrine Disorder: Yes (DIABETES) Hx Family Neuromuscular Disorders: No Hx Family Neurologic Disorders: Yes (CVA) Hx Family HEENT Disorders: No Hx Family Autoimmune Disorders: No Father Adopted: No Family Member Ethnicity: Non- Living Status: Hx Family Cardiac Disorders: Yes (CAD) Hx Family Respiratory Disorders: Yes (LUNG CA) Hx Family Cancer: Yes (LUNG CA) Hx Family GI Disorders: No Hx Family Endocrine Disorder: No Hx Family Neuromuscular Disorders: No Hx Family Neurologic Disorders: No Hx Family HEENT Disorders: No Hx Family Autoimmune Disorders: No Internal Medicine - H&P: Meds Bupropion HCl [Wellbutrin Xl] 300 mg PO DAILY 12/27/16 [History] Fluticasone Propionate Nasal [Flonase] 50 mcg NS DAILY PRN 12/27/16 [History] Levothyroxine [Synthroid] 175 mcg PO QAM 12/27/16 [History] Loratadine [Claritin] 10 mg PO DAILY PRN 12/27/16 [History] Omeprazole [PriLOSEC] 20 mg PO DAILY PRN 12/27/16 [History] Venlafaxine XR (24 HR) [Effexor Xr] 150 mg PO DAILY 12/27/16 [History] Zolpidem [Ambien] 5 mg PO HS 12/27/16 [History] Aspirin 81 mg PO DAILY #30 tab.chew 12/29/16 [Rx] Albuterol Sulfate [Proair Hfa] 2 puff IH Q4-6H PRN 04/20/17 [History] Sotalol [Betapace] 80 mg PO Q12HR #60 tablet 04/22/17 [Rx] Prasugrel [Effient] 10 mg PO DAILY 07/15/17 [History] Dicyclomine [Bentyl] 20 PO 3-4XD PRN 03/28/18 [History] 3 Allergy/AdvReac Type Severity Reaction Status Date / Time Amoxicillin Allergy Rash Verified 04/20/17 15:49 clavulanic acid Allergy Rash Verified 04/20/17 15:49 [From Augmentin] clopidogrel [From Plavix] Allergy Rash Verified 04/20/17 15:49 Emsterc-Vok-Uso Reductase Allergy Rash Verified 04/20/17 15:49 Inhibitor [Statins] Sulfa (Sulfonamide Allergy Rash Verified 04/20/17 15:49 Antibiotics) amlodipine [From Norvasc] AdvReac Rash Verified 04/20/17 15:49 diltiazem [From Cardizem] AdvReac Itching Verified 03/28/18 23:52 latex AdvReac Rash Verified 04/20/17 15:49 ticagrelor [From Brilinta] AdvReac Diarrhea Verified 04/20/17 15:53 All Systems PM: A 10-system review of systems was performed and is negative for pertinent findings except as documented above in the HPI. - Constitutional Constitutional: as per HPI - EENT Eyes: no change in vision, no discharge, no pain, no photophobia Ears: no ear discharge, no ear pain, no tinnitus Nose, mouth and throat: no dysphagia, no nasal discharge, no neck pain, no sore throat - Cardiovascular Cardiovascular ROS IM: as per HPI, chest pain, diaphoresis, no lightheadedness, no palpitations, no syncope - Respiratory Respiratory: no cough, no dyspnea, no wheezing, no excessive phlegm production - Gastrointestinal Gastrointestinal: no abdominal pain, no diarrhea, no hematemesis, no hematochezia, no melena, no nausea, no vomiting - Genitourinary Genitourinary: no change in urinary stream, no dysuria, no flank pain, no hematuria - Musculoskeletal Musculoskeletal ROS IM: no numbness, no tingling - Integumentary Integumentary IM: no rash, no unusual bruising - Neurological Neurological ROS: no confusion, no convulsions, no focal weakness, no numbness, no tingling, no tremor(s) - Hematologic/Lymphatic Hematologic/Lymphatic: no easy bruising - Constitutional Vitals: Temp Pulse Resp BP Pulse Ox 97.8 F 65 20 149/82 98 03/28/18 22:26 03/29/18 01:58 03/29/18 01:58 03/29/18 01:05 03/29/18 01:58 General appearance: Present: A&O X 3, no acute distress, answers questions appropriately - Head Head exam: Present: atraumatic, normocephalic - Eye Eye exam: Present: EOMI, conjuntiva pink, sclera anicteric - Neck Neck exam general surgery: Present: supple, trachea midline. Absent: lymphadenopathy - Respiratory Respiratory exam: Present: CTAB. Absent: accessory muscle use, rales, rhonchi, wheezes - Cardiovascular Cardiovascular exam: Present: RRR, +S1, +S2. Absent: diastolic murmur, gallop, rubs, systolic murmur - GI/Abdominal GI/Abdominal exam: Present: normal bowel sounds, soft, no peritoneal signs. Absent: distended, tenderness - Extremities Exam Extremities exam: Present: warm, radial pulses palpable and symmetrical. Absent : calf tenderness, cyanotic, pedal edema - Neurological Exam Neurological exam: Present: altered, oriented X3, no focal deficits. Absent: pronater drift, facial droop, speech deficit - Skin Skin exam: Present: dry, intact Internal Med - H&P Results - Labs CBC & Chem 7: 03/28/18 22:19 03/28/18 22:19 - Assessment and plan (1) Chest pain Current Visit: Yes Status: Acute Assessment and plan: Patient presents with typical chest pain that is relieved with nitroglycerin Troponin negative 1, continue trending Last echo 12/2016 demonstrating left ventricular ejection fraction 45-50%, 1 vessel CAD, hypokinetic wall segments. PTCA/JAVI to proximal mid LAD was placed Patient is unable to tolerate statin. SL Nitro as needed. Echo pending. EKG independently read. T wave inversions noted, unchanged from previous EKG 2016 Qualifiers: Chest pain type: unspecified Qualified Code(s): R07.9 - Chest pain, unspecified (2) Atrial fibrillation with RVR Current Visit: No Status: Acute Assessment and plan: Patient had episode of A. fib with RVR. Patient reports that she is unable to afford Xeralto for the last 2 months. Informed patient that Coumadin is a good option after her discharge. She has been previously on Coumadin and tolerated it well. She is allergic to Diltiazem, continue with home BB. Continue to monitor closely. Patient also reports that she had ablation by Dr. Chaudhary in the past and did not had episode of A. fib until now. Consult cardiology, recommendations appreciated. (3) Hypothyroid Current Visit: No Status: Acute Assessment and plan: Patient reports that her PCP decreased her dose of Synthroid 3 months ago. Previously on 200 MCG daily, we will continue her with this dose. Qualifiers: Hypothyroidism type: unspecified Qualified Code(s): E03.9 - Hypothyroidism , unspecified (4) DVT prophylaxis Current Visit: No Status: Acute Assessment and plan: Subcutaneous heparin (5) Type 2 diabetes mellitus Current Visit: No Status: Acute Assessment and plan: Patient reports that she was previously on insulin. But PCP discontinued insulin due to well-controlled diabetes. Currently blood glucose 195. Recheck A1c. Start with medium dose SSI. Qualifiers: Diabetes mellitus long-term insulin use: without long-term use Diabetes mellitus complication status: without complication Qualified Code(s): E11.9 - Type 2 diabetes mellitus without complications - Time Spent With Patient Total time spent is greater than 50% in coordination of care (as documented) at patient's floor/unit and/or counseling patient: Greater than 35 minutes <Santiago King - Last Filed: 03/29/18 05:29> Date of Encounter: 03/29/18 Internal Medicine - H&P: HPI History of present illness: Ms. Kong is a 72 year old female All Systems PM: A 10-system review of systems was performed and is negative for pertinent findings except as documented above in the HPI. - Constitutional Vitals: Temp Pulse Resp BP Pulse Ox 97.6 F 62 16 138/70 95 03/29/18 03:14 03/29/18 03:14 03/29/18 03:14 03/29/18 03:14 03/29/18 03:14 Internal Med - H&P Results - Labs CBC & Chem 7: 03/28/18 22:19 03/28/18 22:19 - Attending Attestation I have seen and examined this patient independently. I have discussed with resident physician Dr Chapman regarding the management plan. Agree with the documentation. 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
[2018-03-29] MEDS ORDERED: Naloxone 0.4 MG/ML INJ IVP PRN (02:46)
[2018-03-29] MEDS ORDERED: Acetaminophen 325 MG TABLET PO PRN (02:46)
[2018-03-29] MEDS ORDERED: Loratadine 10 MG TABLET PO PRN (02:48)
[2018-03-29] MEDS ORDERED: Fluticasone Propionate Nasal 50 MCG/SPRAY BOTTLE NS PRN (02:48)
[2018-03-29] MEDS ORDERED: D5% in Water 1,000 ML IVC PRN (03:07)
[2018-03-29] MEDS ORDERED: *HR* Dextrose 50 % in Water (Syg) 50 ML SYRINGE IVP PRN (03:07)
[2018-03-29] MEDS ORDERED: Dextrose Gel 15 GM/37.5 ML TUBE PO PRN ×2 (03:07)
[2018-03-29] MEDS ORDERED: Nitroglycerin 0.4 MG TAB.SUBL SL PRN (03:14)
[2018-03-29 05:48] LABS: Basophils % 0.5 %; Eosinophils # 0.1 K/mcL (0.0-0.6); Eosinophils % 1.3 %; Hematocrit 36.3 % (35.3-44.9); Hemoglobin 12.3 g/dL (11.5-15.4); Immature Granulocytes % 0.1 % (0-4); Lymphocytes # 2.8 K/mcL (0.6-4.6); Lymphocytes % 36.9 %; Mean Corpuscular HGB Conc 33.9 g/dL (31.6-35.5); Mean Corpuscular Hemoglobin 30.8 pg (28.0-33.3); Mean Corpuscular Volume 90.8 fL (83.0-100.0); Mean Platelet Volume 10.8 fL (9.4-12.4); Monocytes # 0.5 K/mcL (0.0-1.3); Monocytes % 6.3 %; Neutrophils # 4.1 K/mcL (1.6-8.9); Platelet Count 152 K/mcL (140-400); Red Cell Distribution Width 12.7 % (11.5-14.5); Segmented Neutrophils % 54.9 %
[2018-03-29] MEDS ORDERED: *HR* Heparin 5,000 UNIT/ML VIAL SQ SCH (06:00)
[2018-03-29 06:08] LABS: BUN/Creatinine Ratio 10 (6-26); Blood Urea Nitrogen 9 mg/dL (8-23); Carbon Dioxide 26 mEq/L (23-29); Chloride 109 mEq/L (98-107); Glucose 133 mg/dL (70-105); Osmolality,Calculated 293 (280-300); Potassium 3.6 mEq/L (3.5-5.1); Sodium 141 mEq/L (136-145); eGFR For African Americans > 60 (> 60); eGFR For Non-African Americans 59 (> 60)
[2018-03-29 06:10] LABS: Troponin I 0.04 ng/mL (< 0.04)
[2018-03-29] MEDS: Insulin LISPRO 300 UNITS/3 ML VIAL SQ SCH ×3 (10:16→17:35)
[2018-03-29] MEDS: BuPROPion XL (24 HR) 150 MG TABLET PO SCH (10:27)
[2018-03-29] MEDS: Venlafaxine XR (24 HR) 150 MG CAP.ER.24H PO SCH (10:27)
[2018-03-29] MEDS: Aspirin 81 MG TAB.CHEW PO SCH (10:27)
--- NOTE | 2018-03-29 14:53 | Cardiology Consult Note ---
Date of Encounter: 03/29/18 Time of Encounter: 10:30 Assessment and Plan (1) Atrial fibrillation with RVR Current Visit: No Status: Acute Patient presented with AF RVR, spontaneously converted to NSR. Suspect precipitation of AF secondary to marked TSH abnormality. Will defer to primary team for management of her thyroid. For now, I agree with continuing sotalol. Patient decreased the dose on her own to 80mg once daily from BID out of concerns regarding significant fatigue which seemed to improved with the lower dose. Notably, her ECG on presentation when she converted to NSR demonstrated prolonged QTc. Recommend obtaining ECG in AM tomorrow for re-evaluation while patient is on once daily dosing. Otherwise, we had a long conversation about anticoagulation. Her CHADSVASC is 8 for age, sex, CHF, HTN, reported history of TIA, vascular disease and diabetes. She is at very high risk for CVA in setting of AF. Since NOACs are cost prohibitive, I recommend we start coumadin. She understands the risks and benefits of coumadin therapy and has agreed to start anticoagulation. Since it has been over 12 months of DAPT after PCI, I would stop effient but continue low dose aspirin. (2) Chest pain Current Visit: Yes Status: Acute Chest pain started in her jaw which she reports are her typical symptoms of atrial fibrillation/rvr. Her troponins are unremarkable and there are no new ischemic ECG findings. If she develops symptoms unrelated to AFIB, then can consider outpatient stress testing. Will continue aspirin. Reports intolerance to statin therapy. Qualifiers: Chest pain type: unspecified Qualified Code(s): R07.9 - Chest pain, unspecified (3) Coronary artery disease Current Visit: No Status: Chronic STEMI in December 2016 been maintained on DAPT with asa and effient. Since we are starting her on coumadin for CVA prevention in setting of AFIB, we will stop effient and continue aspirin. She reports intolerance to statins. Qualifiers: Coronary Disease-Associated Artery/Lesion type: [place] artery [place] vs. transplanted heart: [place] heart Associated angina: angina presence unspecified Qualified Code(s): I25.10 - Atherosclerotic heart disease of [place] coronary artery without angina pectoris Discussion w patient/family: The assessment and plan as outlined above was discussed with the patient and/or family members who expressed understanding and agreement. All questions were answered. Thank you for involving us in the care of your patient. Please call with any questions. History of Present Illness Consult date: 03/29/18 Requesting physician: Gaston Chapman Consult reason: AFIB Chief complaint: Jaw and neck pain, dyspnea History of present illness: Ms. Kong is a 72 year old female presenting with jaw and neck pain associated with dyspnea and diaphoresis. When she presented to the ER, she was noted to be in AF RVR and shortly after spontaneously converted to NSR. She has a history of AFIB having undergone RFA July [address] Nacho Chaudhary. Afterwards, she had breakthrough episodes and had a LOOP recorder placed. She has been maintained on sotalol 80mg BID but decreased it to once daily about 2 months ago due to perceived side effect of fatigue. In the past she was given Rx for xarelto but both xarelto and eliquis were cost prohibitive and has not been on full anticoagulation. She states she takes one baby aspirin twice daily along with Effient - she also has a history of STEMI in December 2016. At the bedside,she states she feels better. Reports that jaw pain symptoms are her typical presenting symptoms of AF RVR. Denies further chest pain. Troponins 0.03 then 0.04 then 0.03. TSH markedly elevated at 34. Past Med Surg Social Fam HX - Past Medical History Attestation: Yes The following information was validated with the patient. Medical history: asthma, atrial fibrillation, CHF, coronary artery disease, diabetes, GERD, hyperlipidemia, myocardial infarction, renal disease, thyroid disease Psychiatric history: anxiety, depression - Past Surgical History Surgical History: appendectomy, cataract, cholecystectomy, orthopedic, other, sinus surgery, RAE/BSO - Social History Smoking Status: Current every day smoker Smokeless Tobacco Status: No Alcohol use: none Drug use: none - Family History Mother Adopted: No Family Member Ethnicity: Non- Living Status: Still Living Hx Family Cardiac Disorders: No Hx Family Respiratory Disorders: No Hx Family Cancer: No Hx Family GI Disorders: No Hx Family Endocrine Disorder: Yes (DIABETES) Hx Family Neuromuscular Disorders: No Hx Family Neurologic Disorders: Yes (CVA) Hx Family HEENT Disorders: No Hx Family Autoimmune Disorders: No Father Adopted: No Family Member Ethnicity: Non- Living Status: Hx Family Cardiac Disorders: Yes (CAD) Hx Family Respiratory Disorders: Yes (LUNG CA) Hx Family Cancer: Yes (LUNG CA) Hx Family GI Disorders: No Hx Family Endocrine Disorder: No Hx Family Neuromuscular Disorders: No Hx Family Neurologic Disorders: No Hx Family HEENT Disorders: No Hx Family Autoimmune Disorders: No Medications and Allergies Bupropion HCl [Wellbutrin Xl] 300 mg PO DAILY 12/27/16 [History] Fluticasone Propionate Nasal [Flonase] 50 mcg NS DAILY PRN 12/27/16 [History] Levothyroxine [Synthroid] 175 mcg PO QAM 12/27/16 [History] Loratadine [Claritin] 10 mg PO DAILY PRN 12/27/16 [History] Omeprazole [PriLOSEC] 20 mg PO DAILY PRN 12/27/16 [History] Venlafaxine XR (24 HR) [Effexor Xr] 150 mg PO DAILY 12/27/16 [History] Zolpidem [Ambien] 5 mg PO HS 12/27/16 [History] Aspirin 81 mg PO DAILY #30 tab.chew 12/29/16 [Rx] Albuterol Sulfate [Proair Hfa] 2 puff IH Q4-6H PRN 04/20/17 [History] Prasugrel [Effient] 10 mg PO DAILY 07/15/17 [History] Dicyclomine [Bentyl] 20 mg PO QID 03/28/18 [History] Sotalol [Betapace] 80 mg PO DAILY 03/29/18 [History] 3 Allergy/AdvReac Type Severity Reaction Status Date / Time Amoxicillin Allergy Rash Verified 03/29/18 10:00 clavulanic acid Allergy Rash Verified 03/29/18 10:00 [From Augmentin] clopidogrel [From Plavix] Allergy Rash Verified 03/29/18 10:00 Brxilpx-Vop-Dbm Reductase Allergy Rash Verified 03/29/18 10:00 Inhibitor [Statins] Sulfa (Sulfonamide Allergy Rash Verified 03/29/18 10:00 Antibiotics) amlodipine [From Norvasc] AdvReac Rash Verified 03/29/18 10:00 diltiazem [From Cardizem] AdvReac Itching Verified 03/29/18 10:00 latex AdvReac Rash Verified 03/29/18 10:00 ticagrelor [From Brilinta] AdvReac Diarrhea Verified 03/29/18 10:00 All Systems Review: The remainder of the systems were reviewed and are negative - Cardiovascular Cardiovascular: as per HPI Physical Examination Vital Signs, Last 4 Hours Temp Pulse Resp BP Pulse Ox 03/29/18 11:51 99.3 F 49 18 145/72 98 General: Conversant, No Apparent Distress HEENT: Mucus Membranes Moist Neck: No JVD Cardiac: Reg Rate and Rhythm, Normal S1 and S2, No Murmur Lungs: Normal Breath Sounds, No Wheeze, Rales, Rhonchi Neuro: Alert and responsive, No focal deficits noted Abdomen: Soft, Non-Tender, Other (normal bowel sounds) Extremities: No Edema, Normal Pulses Results 03/29/18 05:22 03/29/18 05:22 Lab Results 03/29/18 03/29/18 03/29/18 05:22 05:22 11:19 WBC 7.5 Hgb 12.3 Hct 36.3 Plt Count 152 Sodium 141 Potassium 3.6 Chloride 109 H Carbon Dioxide 26 BUN 9 Creatinine 0.93 Glucose 133 H Calcium 9.0 Troponin I 0.04 H* 0.03 - Imaging and Cardiology Chest Xray: report reviewed - EKG Interpretation EKG results cardiology: personally reviewed (Presenting ECG demonstrates AF RVR , follow up ECG sinus cheryle HR 59 bpm without acute ischemic findings, QTC 492ms previously 438 ms on ECG from September 2017), other (telemetry demonstrates average HR 53 bpm, no concerning dysrhythmia) Consult Discharge Plan - Plan Referrals: Harjeet Arias MD [Primary Care Provider] -
[2018-03-29] MEDS ORDERED: Warfarin perPT PO PRN (18:00)
[2018-03-29] MEDS ORDERED: *HR* Warfarin 2.5 MG TABLET PO ONE (18:00)
--- NOTE | 2018-03-29 20:08 | Event Note ---
Date of Encounter: 03/29/18 Time of Encounter: 20:05 Patient was seen in the examined earlier this a.m. by the hospitalist. Presently patient is not expressing any chest pain currently in sinus rhythm patient's TSH elevated initiated on Synthroid. Patient was seen by cardiology who suspects A. fib secondary to TSH abnormality. Will continue with sotalol patient placed on Coumadin per cardiology pharmacy to dose. Patient reports that she does have a loop recorder was recently placed Continuous cardiac monitoring recheck EKG in a.m.
[2018-03-29] MEDS ORDERED: Insulin LISPRO 300 UNITS/3 ML VIAL SQ SCH (21:00)
[2018-03-30 07:15] LABS: Prothrombin Time 10.4 Seconds (9.4-12.1)
[2018-03-30] MEDS: Insulin LISPRO 300 UNITS/3 ML VIAL SQ SCH ×2 (09:40→14:03)
[2018-03-30] MEDS: Aspirin 81 MG TAB.CHEW PO SCH (09:45)
[2018-03-30] MEDS: BuPROPion XL (24 HR) 150 MG TABLET PO SCH (09:45)
[2018-03-30] MEDS: Venlafaxine XR (24 HR) 150 MG CAP.ER.24H PO SCH (09:45)
--- NOTE | 2018-03-30 10:28 | Cardiology Progress Note ---
Date of Encounter: 03/30/18 Time of Encounter: 12:48 Assessment and Plan (1) Atrial fibrillation with RVR Current Visit: No Status: Acute Patient presented with AF RVR, spontaneously converted to NSR. Suspect precipitation of AF secondary to marked TSH abnormality. Will defer to primary team for management of her thyroid. For now, recommend continuing sotalol. Patient decreased the dose on her own to 80mg once daily from BID out of concerns regarding significant fatigue which seemed to improved with the lower dose. Notably, her ECG on presentation when she converted to NSR demonstrated prolonged QTc. Her QTC by ECG today was normal. Heart rates overnight average 50's. I have asked the nurses to walk the patient in the [place] and report back to me her heart rates. She will follow up with Dr. Nacho Chaudhary as an outpatient. I Otherwise, CHADSVASC is 8 for age, sex, CHF, HTN, reported history of TIA, vascular disease and diabetes. She is at very high risk for CVA in setting of AF. Since NOACs are cost prohibitive, I recommend we start coumadin. She understands the risks and benefits of coumadin therapy and has agreed to start anticoagulation. Effient has been stopped, aspirin continued. She will need outpatient PT/INR monitoring. (2) Chest pain Current Visit: Yes Status: Acute Chest pain started in her jaw which she reports are her typical symptoms of atrial fibrillation/rvr. Her troponins are unremarkable and there are no new ischemic ECG findings. She denies any recurrent symptoms. If she develops symptoms unrelated to AFIB, then can consider outpatient stress testing. Will continue aspirin. Reports intolerance to statin therapy. Qualifiers: Chest pain type: unspecified Qualified Code(s): R07.9 - Chest pain, unspecified (3) Coronary artery disease Current Visit: No Status: Chronic STEMI in December 2016 been maintained on DAPT with asa and effient. Since we are starting her on coumadin for CVA prevention in setting of AFIB, we will stop effient and continue aspirin. She reports intolerance to statins. Qualifiers: Coronary Disease-Associated Artery/Lesion type: [place] artery [place] vs. transplanted heart: [place] heart Associated angina: angina presence unspecified Qualified Code(s): I25.10 - Atherosclerotic heart disease of [place] coronary artery without angina pectoris Discussion w patient/family: The assessment and plan as outlined above was discussed with the patient and/or family members who expressed understanding and agreement. All questions were answered. Thank you for involving us in the care of your patient. Please call with any questions. Subjective Principal diagnosis: Atrial fibrillation, chest pain Interval history: No overnight events. Patient reports that she slept well. No palpitations or chest pain. Objective Vital Signs, Last 4 Hours Temp Pulse Resp BP Pulse Ox 03/30/18 09:53 93 03/30/18 07:41 97.6 F 58 16 133/76 93 General: Conversant, No Apparent Distress HEENT: Atraumatic, Normocephaly, Mucus Membranes Moist Neck: No JVD Cardiac: Normal S1 and S2, No Murmur, Other (Regular rhythm, bradycardic) Lungs: Normal Breath Sounds, No Wheeze, Rales, Rhonchi Neuro: Alert and responsive, No focal deficits noted Abdomen: Soft, Non-Tender, Other (normal bowel sounds) Extremities: No Edema Results 03/29/18 05:22 03/29/18 05:22 Lab Results 03/29/18 03/30/18 11:19 06:17 INR 1.0 Troponin I 0.03 - EKG Interpretation EKG results cardiology: personally reviewed (ECG done at the bedside demonstrated sinus bradycardia, HR 50 bpm with QTC 440ms), other (Overnight telemetry reviewed demonstrating average HR 58 bpm, one short episode of possible AF) Consult Discharge Plan - Plan Referrals: Harjeet Arias MD [Primary Care Provider] -
[2018-03-30 12:55] VITALS: BP 121/70
--- NOTE | 2018-03-30 14:27 | Discharge Summary ---
- NOTES TO OUTPATIENT PROVIDER Notes to Outpatient Provider: Follow up with Dr Chaudhary - Sotalol 80mg daily. Monitor TSH- elevated placed back on Synthroid 200mcg daily. Placed on Coumadin Monitor PT INR - Coumadin Clinic Orders not resulted at time of discharge: Pending orders 03/29/18 05:22 Hgb A1C AM 0400 03/29/18 07:00 EKG [ECG 12 lead ECG] [ECG] Routine 03/30/18 06:00 ECG 12 lead ECG [ECG] AM 0603/30/18 12:12 EKG [ECG 12 lead ECG] [ECG] Routine 03/31/18 04:00 INR/PT [Prothrombin Time INR] [COAG] AM 04004/01/18 04:00 INR/PT [Prothrombin Time INR] [COAG] AM 04004/02/18 04:00 INR/PT [Prothrombin Time INR] [COAG] AM 0400 04/03/18 04:00 INR/PT [Prothrombin Time INR] [COAG] AM 0400 Date of Encounter: 03/30/18 Time of Encounter: 14:23 - Discharge Diagnosis (1) Atrial fibrillation with RVR Priority: Primary Status: Acute (2) Chest pain Priority: Secondary Status: Acute Qualifiers: Chest pain type: unspecified Qualified Code(s): R07.9 - Chest pain, unspecified (3) Hypothyroid Priority: Secondary Status: Acute Qualifiers: Hypothyroidism type: unspecified Qualified Code(s): E03.9 - Hypothyroidism , unspecified (4) Type 2 diabetes mellitus Priority: Secondary Status: Acute Qualifiers: Diabetes mellitus terminal gauger insulin use: without terminal gauger use Diabetes mellitus complication status: without complication Qualified Code(s): E11.9 - Type 2 diabetes mellitus without complications Hospital course: Ms. Kong is a 72 year old female past medical history of STEMI with PTCA/JAVI to proximal mid LAD A. fib with RVR hypothyroid type 2 diabetes and mass. Patient originally presented to ED with chest pain that occurred at rest describing as pressure-like . Pain originated in jaw and rated to the chest substernal associated symptoms of diaphoresis and shortness of breath. EKG the ER did show A. fib with RVR and converted back to sinus rhythm Pain was relieved with 2 nitroglycerin. She was admitted troponins were negative 3. TSH was elevated recently patient PCP has decreased her Synthroid. cardiology was consulted. Suspect that A. fib is secondary to thyroid abnormality cardiology recommending continuing sotalol 80 mg daily heart rate overnight were in the 50s QTC on EKG was normal. Chest mask was 8 patient unable to afford NOAC cardiology recommending a CMP stop continue aspirin started on Coumadin patient is to follow up with Coumadin clinic. We did fax information over to Coumadin clinic advised patient to go to clinic on Saturday for draw. Patient was given 5 mg of Coumadin tonight and for the next 2 days. Synthroid was increased to 200 g daily. Recheck of TSH is trending down. Advised patient to follow-up with PCP to have TSH checked. Advised patient to follow- up with Dr. Chaudhary. Advised patient to patient to take sotalol 80 mg daily. Patient verbalized understanding-cardiology okay with discharge follow-ups. She is hemodynamically stable and ready for discharge - Time Spent with Patient Total time spent providing and/or coordinating discharge services: - Discharge Medications Prescriptions: Levothyroxine [Synthroid] 200 mcg PO DAILY #30 tablet Warfarin [Coumadin] 5 mg PO 1800 #3 tablet Warfarin [Coumadin] 5 mg PO 1800 #7 tablet Home Medications: Bupropion HCl [Wellbutrin Xl] 300 mg PO DAILY 12/27/16 [History] Fluticasone Propionate Nasal [Flonase] 50 mcg NS DAILY PRN 12/27/16 [History] Loratadine [Claritin] 10 mg PO DAILY PRN 12/27/16 [History] Omeprazole [PriLOSEC] 20 mg PO DAILY PRN 12/27/16 [History] Venlafaxine XR (24 HR) [Effexor Xr] 150 mg PO DAILY 12/27/16 [History] Zolpidem [Ambien] 5 mg PO HS 12/27/16 [History] Aspirin 81 mg PO DAILY #30 tab.chew 12/29/16 [Rx] Albuterol Sulfate [Proair Hfa] 2 puff IH Q4-6H PRN 04/20/17 [History] Dicyclomine [Bentyl] 20 mg PO QID 03/28/18 [History] Sotalol [Betapace] 80 mg PO DAILY 03/29/18 [History] Levothyroxine [Synthroid] 200 mcg PO DAILY #30 tablet 03/30/18 [Rx] Sotalol [Betapace] 80 mg PO DAILY tablet 03/30/18 [Rx] Warfarin [Coumadin] 5 mg PO 1800 #3 tablet 03/30/18 [Rx] Warfarin [Coumadin] 5 mg PO 1800 #7 tablet 03/30/18 [Rx] Allergies/Adverse Reactions: 3 Allergy/AdvReac Type Severity Reaction Status Date / Time Amoxicillin Allergy Rash Verified 03/29/18 10:00 clavulanic acid Allergy Rash Verified 03/29/18 10:00 [From Augmentin] clopidogrel [From Plavix] Allergy Rash Verified 03/29/18 10:00 Yaeilae-Ara-Zez Reductase Allergy Rash Verified 03/29/18 10:00 Inhibitor [Statins] Sulfa (Sulfonamide Allergy Rash Verified 03/29/18 10:00 Antibiotics) amlodipine [From Norvasc] AdvReac Rash Verified 03/29/18 10:00 diltiazem [From Cardizem] AdvReac Itching Verified 03/29/18 10:00 latex AdvReac Rash Verified 03/29/18 10:00 ticagrelor [From Brilinta] AdvReac Diarrhea Verified 03/29/18 10:00 Date of admission: 03/29/18 02:22 Primary care physician: Harjeet Arias MD Consults: 03/29/18 03:32 Consult to Cardiology [CONS] Routine Comment: Consulting Provider: Cardiology Yesy Reason for Consult: first recurrent episode of A. fib RVR s/p ablation by Dr. Chaudhary. Call Completed: No Discharging clinician: Steph Mendez Anticipated date of discharge: 03/30/18 - Constitutional Vitals: Temp Pulse Resp BP Pulse Ox 97.8 F 50 14 121/70 98 03/30/18 12:49 03/30/18 12:49 03/30/18 12:49 03/30/18 12:49 03/30/18 12:49 General appearance: Present: A&O X 3, no acute distress, answers questions appropriately - Head Head exam: Present: atraumatic, normocephalic - Eye Eye exam: Present: PERRL, conjuntiva pink, sclera anicteric Pupils: Present: PERRL - Neck Neck exam general surgery: Present: supple, trachea midline. Absent: lymphadenopathy - Respiratory Respiratory exam: Present: CTAB. Absent: accessory muscle use, rales, rhonchi, wheezes - Cardiovascular Cardiovascular exam: Present: RRR, +S1, +S2. Absent: diastolic murmur, gallop, rubs, systolic murmur - GI/Abdominal GI/Abdominal exam: Present: normal bowel sounds, soft, no peritoneal signs. Absent: distended, tenderness - Extremities Exam Extremities exam: Present: warm, radial pulses palpable and symmetrical. Absent : calf tenderness, cyanotic, pedal edema - Neurological Exam Neurological exam: Present: CN II-XII intact, oriented X3, no focal deficits. Absent: pronater drift, facial droop, speech deficit - Skin Skin exam: Present: dry, intact - Patient Status Disposition: Home, Self-Care Condition: Good Functional capacity at discharge: independent ambulation Overall status at discharge: patient is back to baseline - Discharge Instructions Instructions: Myocardial Infarction (DC), Atrial Fibrillation (DC), Chest Pain (DC), Hypothyroidism (DC), Diabetes Mellitus Type 2 in Adults (DC) Follow Up With: Harjeet Arias MD [Primary Care Provider] - Nacho Chaudhary MD [Partnered Physician] - Additional Instructions: Coumadin 5mg Follow-up with the Coumadin clinic on Sat Follow-up with Dr. Chaudhary Follow-up PCP Have TSH checked Sotalol 80 mg daily Synthroid 200 g daily - Diet and Activity Activity: resume usual activities as tolerated Diet: advance to your usual diet
[2018-03-30] MEDS ORDERED: *HR* Warfarin 5 MG TABLET PO ONE (18:00)
[2018-04-01 09:27] LABS: Estimated Average Glucose 180 mg/dl; Hemoglobin A1C 7.9 %
--- NOTE | 2018-04-01 11:44 | Electrocardiograph Report ---
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
--- NOTE | 2018-04-01 11:51 | Electrocardiograph Report ---
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
--- NOTE | 2018-04-01 11:53 | Electrocardiograph Report ---
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
--- NOTE | 2018-04-02 06:53 | Electrocardiograph Report ---
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
== END 2018-03-30 16:37 | disposition home or self-care (01) ==
LOC: 3BNU 22:01 → EMEROO 22:01 → 3BNU 03-29 02:54
PROVIDERS: ADMIT Internal Medicine; ATTEND Internal Medicine

== ENCOUNTER 2018-07-25 19:55 | Observation (INO) ==
--- NOTE | 2018-07-25 20:31 | Emergency Department Note ---
Disposition Clinical Impression: Atrial fibrillation with RVR, Nicotine abuse Disposition: Admitted As Inpatient Condition: Good Forms: ED Satisfaction Letter Time of Disposition: 21:57 General Adult HPI - General Chief complaint: ED Arrhythmia/Palpitations Stated complaint: Afib Time Seen by Provider: 07/25/18 20:14 Nursing Notes Reviewed: Yes Vital Signs Reviewed: Yes - History of Present Illness HPI Narrative: Bilateral jaw pain and palpitations that started earlier this evening. She was aggressively started. Did take some nitroglycerin which seemed to help the pain. Denies any shortness of breath. Denies any chest pain. States that the last time she had an NE she had bilateral jaw pain as well. Does have history of A. fib. Has been taking her medication as prescribed. Has not missed any doses. Denies any fevers chills. No nausea vomiting or diarrhea. No shortness of breath. Physical her heart is racing at this time. Pain Scale: 0 - Related Data Home Medications Medication Instructions Recorded Confirmed Bupropion HCl [Wellbutrin Xl] 300 mg PO DAILY 12/27/16 03/29/18 Fluticasone Propionate Nasal 50 mcg NS DAILY PRN 12/27/16 03/29/18 [Flonase] Loratadine [Claritin] 10 mg PO DAILY PRN 12/27/16 03/29/18 Omeprazole [PriLOSEC] 20 mg PO DAILY PRN 12/27/16 03/29/18 Venlafaxine XR (24 HR) [Effexor Xr] 150 mg PO DAILY 12/27/16 03/29/18 Zolpidem [Ambien] 5 mg PO HS 12/27/16 03/29/18 Albuterol Sulfate [Proair Hfa] 2 puff IH Q4-6H PRN 04/20/17 03/29/18 Dicyclomine [Bentyl] 20 mg PO QID 03/28/18 03/29/18 Sotalol [Betapace] 80 mg PO DAILY 03/29/18 03/29/18 Previous Rx's Medication Instructions Recorded Aspirin 81 mg PO DAILY #30 tab.chew 12/29/16 Levothyroxine [Synthroid] 200 mcg PO DAILY #30 tablet 03/30/18 Sotalol [Betapace] 80 mg PO DAILY tablet 03/30/18 Warfarin [Coumadin] 5 mg PO 1800 #3 tablet 03/30/18 Warfarin [Coumadin] 5 mg PO 1800 #7 tablet 03/30/18 Allergies Allergy/AdvReac Type Severity Reaction Status Date / Time Amoxicillin Allergy Rash Verified 03/29/18 10:00 clavulanic acid Allergy Rash Verified 03/29/18 10:00 [From Augmentin] clopidogrel [From Plavix] Allergy Rash Verified 03/29/18 10:00 Dtjaqat-Qer-Qll Reductase Allergy Rash Verified 03/29/18 10:00 Inhibitor [Statins] Sulfa (Sulfonamide Allergy Rash Verified 03/29/18 10:00 Antibiotics) amlodipine [From Norvasc] AdvReac Rash Verified 03/29/18 10:00 diltiazem [From Cardizem] AdvReac Itching Verified 03/29/18 10:00 latex AdvReac Rash Verified 03/29/18 10:00 ticagrelor [From Brilinta] AdvReac Diarrhea Verified 03/29/18 10:00 All systems ED: reviewed and negative except as stated. Review of Systems: As Per HPI Constitutional: Denies: fever ENT ED: Denies: congestion Cardiovascular: Reports: palpitations, other (Bilateral jaw pain that she states is consistent with when she had a heart attack last.). Denies: chest pain, syncope Respiratory: Denies: cough, dyspnea Gastrointestinal: Denies: abdominal pain, nausea, vomiting, diarrhea Genitourinary: Denies: urgency, dysuria, frequency, hematuria Musculoskeletal: Denies: back pain, neck pain Neurological: Denies: headache Past Medical History - Past Medical History Attestation: Yes The following information was validated with the patient. Source: patient Medical history: Reports: asthma, atrial fibrillation, CHF, coronary artery disease, diabetes, GERD, hyperlipidemia, myocardial infarction, renal disease, thyroid disease Surgical history: Reports: appendectomy, cataract, cholecystectomy, orthopedic, other, sinus surgery, RAE/BSO Psychiatric history: Reports: anxiety, depression - Social History Smoking Status: Current every day smoker Smokeless Tobacco Status: No Alcohol use: Reports: none Drug use: Reports: none Physical Exam - General Limitations: no limitations General appearance: alert, in no apparent distress - Head Head exam: atraumatic, normocephalic, normal inspection - Eye Eye exam: Present: normal appearance, PERRL, EOMI - ENT ENT exam: normal exam, normal oropharynx, mucous membranes moist - Neck Neck exam: Present: normal inspection, full ROM, trachea midline - Chest Chest inspection: Present: normal inspection, symmetric chest wall rise - Respiratory Respiratory exam: Present: wheezes (scant expiratory). Absent: respiratory distress - Cardiovascular Cardiovascular exam: Present: tachycardia, irregular rhythm, normal heart sounds - Abdominal Exam Abdominal exam: Present: soft, Non-Tender. Absent: tenderness, distention, guarding, rebound, rigidity, organomegaly - Extremities Exam Extremities exam: Present: normal inspection, full ROM, normal capillary refill. Absent: tenderness, pedal edema - Back Exam Back exam: Present: normal inspection, full ROM. Absent: tenderness - Neurological Exam Neurological exam: Present: alert, oriented X3 - Psychiatric Psychiatric exam: Present: normal affect, normal mood - Skin Skin exam: Present: warm, dry, intact, normal color. Absent: rash, cyanosis Course Course Narrative: Patient presenting to the emergency department and complaining of bilateral jaw pain that began this evening while she was at rest. She did not take any medication to make this better. She states that she also felt a feeling like her heart was racing at that time. She states she does have a history of A. fib and is on sotalol. He has had an ablation. She also had a a AICD placed earlier this year. Patient states that the jaw pain was present last time when she had her NE. She did not have chest pain at that time. Patient is currently on Coumadin. She states that the pain is gone at this time however she is still having a racing feeling. She has A. fib on the monitor at this time. Due to her being on sotalol we did give her a dose of Lopressor. This ended up converting the patient to a normal sinus rhythm. Patient's troponin is negative. Basic lab workup was also negative. We will admit patient to the hospital for further evaluation. Patient is a smoker. We did discuss that she needs to stop smoking. She expressed understanding - Consultations Consultation #1: Dr Alexander accepted Pt in stable condition. Time: 23:02 Vital Signs Temperature 98.2 F 07/25/18 20:15 Pulse Rate 129 07/25/18 20:15 Respiratory Rate 16 07/25/18 20:15 Blood Pressure 131/76 07/25/18 20:15 O2 Sat by Pulse Oximetry 97 07/25/18 20:15 Temperature 98.2 F 07/25/18 20:54 Pulse Rate 114 07/25/18 20:54 Respiratory Rate 20 07/25/18 20:54 Blood Pressure 131/76 07/25/18 20:54 O2 Sat by Pulse Oximetry 99 07/25/18 20:54 Oxygen Delivery Oxygen Delivery Room Air Medical Decision Making - Medical Records Medical records reviewed: Yes I reviewed the patient's medical records. - Lab Data Lab results reviewed: Yes I reviewed the patient's lab results. Result diagrams: 07/25/18 20:54 07/25/18 20:54 Lab Results 07/25/18 07/25/18 07/25/18 Range/Units 20:54 20:54 20:54 WBC 7.2 (4.3-11.1) K/mcL RBC 4.36 (3.82-4.97) M/mcL Hgb 13.3 (11.5-15.4) g/dL Hct 38.1 (35.3-44.9) % MCV 87.4 (83.0-100.0) fL MCH 30.5 (28.0-33.3) pg MCHC 34.9 (31.6-35.5) g/dL RDW 12.6 (11.5-14.5) % Plt Count 188 (140-400) K/mcL MPV 10.3 (9.4-12.4) fL Immature Gran % 0.1 (0-4) % Seg Neutrophils % 58.3 % Lymphocytes % 31.6 % Monocytes % 7.8 % Eosinophils % 1.8 % Basophils % 0.4 % Neutrophils # 4.2 (1.6-8.9) K/mcL Lymphocytes # 2.3 (0.6-4.6) K/mcL Monocytes # 0.6 (0.0-1.3) K/mcL Eosinophils # 0.1 (0.0-0.6) K/mcL Basophils # 0.0 (0.0-0.2) K/mcL PT 29.5 H (9.4-12.1) Seconds INR 2.6 APTT 42.5 H (26.0-36.0) Seconds Sodium 137 (136-145) mEq/L Potassium 4.4 (3.5-5.1) mEq/L Chloride 108 H (98-107) mEq/L Carbon Dioxide 22 L (23-29) mEq/L BUN 14 (8-23) mg/dL Creatinine 0.95 (0.60-1.20) mg/dL Est GFR ( Amer) > 60 (> 60) Est GFR (Non-Af Amer) 58 L (> 60) BUN/Creatinine Ratio 15 (6-26) Glucose 209 H (70-105) mg/dL Calculated Osmolality 291 (280-300) Calcium 8.8 (8.6-10.3) mg/dL Troponin I < 0.03 (< 0.04) ng/mL - Radiology Data Radiology results reviewed: Yes I reviewed the patient's radiology results. Chest X-Ray 07/25/18 20:25 IMPRESSION: Chronic appearing coarse interstitial densities predominate parahilar regions and lung bases, typical of sequela from smoking or other previous infectious/inflammatory process. Superimposed acute interstitial process such as pneumonitis cannot be excluded. No consolidative changes are noted. D/ / Aric Becker / Aric Becker Interpreting Provider: Aric Becker - EKG Data EKG #1 EKG attestation: Yes I reviewed and interpreted this EKG. EKG results narrative: A flutter at a rate of 131. QRS duration is 93. QT is 370. QTC is 447. No signs of acute ischemia. Patient was in a sinus bradycardic rhythm on last EKG dated 03/30/2018.
[2018-07-25 21:08] LABS: Basophils % 0.4 %; Eosinophils # 0.1 K/mcL (0.0-0.6); Eosinophils % 1.8 %; Hematocrit 38.1 % (35.3-44.9); Hemoglobin 13.3 g/dL (11.5-15.4); Immature Granulocytes % 0.1 % (0-4); Lymphocytes # 2.3 K/mcL (0.6-4.6); Lymphocytes % 31.6 %; Mean Corpuscular HGB Conc 34.9 g/dL (31.6-35.5); Mean Corpuscular Hemoglobin 30.5 pg (28.0-33.3); Mean Corpuscular Volume 87.4 fL (83.0-100.0); Mean Platelet Volume 10.3 fL (9.4-12.4); Monocytes # 0.6 K/mcL (0.0-1.3); Monocytes % 7.8 %; Neutrophils # 4.2 K/mcL (1.6-8.9); Platelet Count 188 K/mcL (140-400); Red Blood Count 4.36 M/mcL (3.82-4.97); Red Cell Distribution Width 12.6 % (11.5-14.5); Segmented Neutrophils % 58.3 %
[2018-07-25] MEDS ORDERED: *HR* Metoprolol 5 MG/5 ML VIAL IVP ONE (21:12)
[2018-07-25 21:13] LABS: INR 2.6; Prothrombin Time 29.5 Seconds (9.4-12.1)
[2018-07-25] MEDS: *HR* Metoprolol 5 MG/5 ML VIAL IVP SCH (21:14)
[2018-07-25 21:15] LABS: Activated Partial Thrombo Time 42.5 Seconds (26.0-36.0)
[2018-07-25 21:29] LABS: BUN/Creatinine Ratio 15 (6-26); Blood Urea Nitrogen 14 mg/dL (8-23); Calcium 8.8 mg/dL (8.6-10.3); Carbon Dioxide 22 mEq/L (23-29); Chloride 108 mEq/L (98-107); Glucose 209 mg/dL (70-105); Osmolality,Calculated 291 (280-300); Potassium 4.4 mEq/L (3.5-5.1); Sodium 137 mEq/L (136-145); eGFR For Non-African Americans 58 (> 60)
[2018-07-25 21:30] LABS: Troponin I < 0.03 ng/mL (< 0.04)
--- NOTE | 2018-07-26 01:46 | Internal Med History&Physical ---
Date of Encounter: 07/26/18 Time of Encounter: 01:42 Internal Medicine - H&P: HPI Chief complaint: jaw pain Admitted From: Home History of present illness: Ms. Kong is a 72 year old female presents with chief complaint of jaw pain which started yesterday evening. Patient reports her jaw pain was bilateral and along with this she had sensation of heavy chest pressure on her upper sternum. She also reported palpitations. Patient has history of coronary artery disease, status post PCI with JAVI in LAD and reports that she had similar pain during her previous CO. She denied any radiation of her chest pain. She denied blurry vision, nausea, vomiting, shortness of breath, diaphoresis. In the ED patient was found to be in A. fib RVR. Patient was given metoprolol and converted to sinus rhythm and her chest pressure, jaw pain resolved. Patient has history of Graves' disease status post radioiodine ablation on levothyroxine. States she has had a difficult time remaining euthyroid and therefore her PCP keeps increasing or decreasing her thyroid medication dose. Past Med Surg Social Fam HX - Past Medical History Medical history: asthma, atrial fibrillation, CHF, coronary artery disease, diabetes, GERD, hyperlipidemia, myocardial infarction, renal disease, thyroid disease Additional medical history: ibs, ulcerative colitis Psychiatric history: anxiety, depression - Past Surgical History Surgical History: appendectomy, cataract, cholecystectomy, orthopedic, other, sinus surgery, RAE/BSO Additional surgical history: neck surgery, colonoscopy, shoulder sx - Social History Smoking Status: Current every day smoker Smokeless Tobacco Status: No Alcohol use: none Drug use: none - Family History Mother Adopted: No Family Member Ethnicity: Non- Living Status: Still Living Hx Family Cardiac Disorders: No Hx Family Respiratory Disorders: No Hx Family Cancer: Yes Hx Family GI Disorders: No Hx Family Endocrine Disorder: Yes (DIABETES) Hx Family Neuromuscular Disorders: No Hx Family Neurologic Disorders: Yes (hx of CVAs (3x)) Hx Family HEENT Disorders: No Hx Family Autoimmune Disorders: No Father Adopted: No Family Member Ethnicity: Non- Living Status: Cause of : "gall bladder complications" Hx Family Cardiac Disorders: Yes Hx Family Respiratory Disorders: Yes (LUNG CA) Hx Family Cancer: Yes (LUNG CA) Hx Family GI Disorders: No Hx Family Endocrine Disorder: No Hx Family Neuromuscular Disorders: No Hx Family Neurologic Disorders: No Hx Family HEENT Disorders: No Hx Family Autoimmune Disorders: No Sister Living Status: Still Living Hx Family Cancer: Yes (breast cancer, uterine cancer) Internal Medicine - H&P: Meds Bupropion HCl [Wellbutrin Xl] 300 mg PO DAILY 12/27/16 [History] Fluticasone Propionate Nasal [Flonase] 50 mcg NS DAILY PRN 12/27/16 [History] Loratadine [Claritin] 10 mg PO DAILY PRN 12/27/16 [History] Omeprazole [PriLOSEC] 20 mg PO DAILY 12/27/16 [History] Venlafaxine XR (24 HR) [Effexor Xr] 150 mg PO DAILY 12/27/16 [History] Aspirin 81 mg PO DAILY #30 tab.chew 12/29/16 [Rx] Albuterol Sulfate [Proair Hfa] 2 puff IH Q4-6H PRN 04/20/17 [History] Dicyclomine [Bentyl] 40 mg PO QID 03/28/18 [History] Sotalol [Betapace] 80 mg PO DAILY 03/29/18 [History] Warfarin [Coumadin] 5 mg PO 1800 #7 tablet 03/30/18 [Rx] Levothyroxine [Synthroid] 175 mcg PO DAILY 07/26/18 [History] Simethicone [Gas Relief] 125 mg PO Q6H PRN 07/26/18 [History] Warfarin [Coumadin] 7.5 mg PO 1800 07/26/18 [History] 3 Allergy/AdvReac Type Severity Reaction Status Date / Time Amoxicillin Allergy Rash Verified 03/29/18 10:00 clavulanic acid Allergy Rash Verified 03/29/18 10:00 [From Augmentin] clopidogrel [From Plavix] Allergy Rash Verified 03/29/18 10:00 Ufnbmrw-Ztj-Uvl Reductase Allergy Rash Verified 03/29/18 10:00 Inhibitor [Statins] Sulfa (Sulfonamide Allergy Rash Verified 03/29/18 10:00 Antibiotics) Influenza Virus Vaccines AdvReac Severe Hives Verified 07/26/18 01:12 amlodipine [From Norvasc] AdvReac Rash Verified 03/29/18 10:00 diltiazem [From Cardizem] AdvReac Itching Verified 03/29/18 10:00 latex AdvReac Rash Verified 03/29/18 10:00 ticagrelor [From Brilinta] AdvReac Diarrhea Verified 03/29/18 10:00 All Systems PM: A 10-system review of systems was performed and is negative for pertinent findings except as documented above in the HPI. Review of systems: Constitutional: Denies fever, chills HEENT: Denies headache, trauma, blurry vision, eye discharge, ear pain, ear discharge neck pain, sore throat, rhinorrhea Heart: rePorts chest pain, palpitations, denies LE edema Lungs: Denies shortness of breath cough Abdomen: Denies abdominal pain nausea vomiting diarrhea MSK: Denies back pain, falls, joint pain Kidney: Denies dysuria, hematuria Skin: Denies rash, ulcers Neuro: Denies numbness and tingling Psych: denies axniety, depression - Constitutional Vitals: Temp Pulse Resp BP Pulse Ox 97.6 F 61 16 143/74 96 07/26/18 00:47 07/26/18 00:47 07/26/18 00:47 07/26/18 00:47 07/26/18 00:47 Exam: General: pleasant, without distress HEENT: Head atraumatic, normocephalic, EOMI, PERRL, absent ear discharge or trauma, Moist Mucous Membranes, uvula midline Neck: nontender to palpation, absent lymphadenopathy, Cardiovascualr: Regular rate and rhythm with no murmur, absent gallops or rubs, absent pedal edema, radial pulses 2 out of 4 Lungs: Clear to auscultation bilaterally, not in respiratory distress Abdomen: Soft nontender, nondistended positive bowel sounds, absent hepatomegaly Skin: warm and dry, absent rash, absent open wounds and nodules MSK: absent clubbing, cyanosis, joints without swelling Neuro: Cranial nerves II through XII intact, UE and LE sensation equal bilaterally, UE and LEstrength 5/5, alert oriented 3, Psych: good insight and judgment Internal Med - H&P Results - Labs CBC & Chem 7: 07/25/18 20:54 07/25/18 20:54 - Assessment and plan (1) Chest pain Current Visit: Yes Status: Resolved Assessment and plan: Patient presents with chest heaviness and jaw pain She has a history of coronary artery disease status post PCI to LAD She reports this pain is similar to her previous chest pain when she had an CO Currently her troponins are negative Her EKG initially was A. fib RVR but now to patient is in normal sinus rhythm. There is no ST elevations or depressions Her chest pain resolved after resolution of A. fib RVR. We will trend troponin Likely her chest pain is secondary to her irregular heart rhythm. Qualifiers: Chest pain type: unspecified Qualified Code(s): R07.9 - Chest pain, unspecified (2) Atrial fibrillation with RVR Current Visit: Yes Status: Resolved Assessment and plan: Patient presented with atrial fibrillation with RVR Patient is on sotalol therapy as well as warfarin for anticoagulation She is now back into sinus rhythm We will continue sotalol and warfarin. INR check in the morning (3) Hypothyroid Current Visit: Yes Status: Chronic Assessment and plan: Patient has history of Graves' disease status post ablation She reports it has been difficult for her to become euthyroid since her ablation She is either hyper or hypothyroid and her PCP has needed to change her thyroid medications multiple times Recommend follow-up with PCP for further treatment. Qualifiers: Hypothyroidism type: postablative Qualified Code(s): E89.0 - Postprocedural hypothyroidism (4) DVT prophylaxis Current Visit: Yes Status: Acute Assessment and plan: Warfarin (5) Coronary artery disease Current Visit: Yes Status: Chronic Assessment and plan: Patient has a history of coronary artery disease Her last echocardiogram with LVEF of 50% moderate left ventricular diastolic dysfunction, severely dilated left atrium Patient a left heart catheterization in December 2016 secondary to STEMI and had a drug-eluting stent placed in the proximal mid LAD Qualifiers: Coronary Disease-Associated Artery/Lesion type: [place] artery [place] vs. transplanted heart: [place] heart Associated angina: angina presence unspecified Qualified Code(s): I25.10 - Atherosclerotic heart disease of [place] coronary artery without angina pectoris (6) Type 2 diabetes mellitus Current Visit: Yes Status: Acute Assessment and plan: Patient has a history of diabetes mellitus [id number] Her last A1c was 7.9 on 03/2018 Unclear if she is on oral hypoglycemic agents Plan: Cardiac ADA diet, low ssi Qualifiers: Diabetes mellitus intermediate insulin use: without clinical education specialist use Diabetes mellitus complication status: without complication Qualified Code(s): E11.9 - Type 2 diabetes mellitus without complications (7) Tobacco abuse Current Visit: Yes Status: Acute Assessment and plan: Patient educated on smoking cessation. - Time Spent With Patient Total time spent is greater than 50% in coordination of care (as documented) at patient's floor/unit and/or counseling patient:
[2018-07-26] MEDS ORDERED: Acetaminophen 325 MG TABLET PO PRN (01:49)
[2018-07-26] MEDS ORDERED: *HR* Dextrose 50 % in Water (Syg) 50 ML SYRINGE IVP PRN (01:57)
[2018-07-26] MEDS ORDERED: D5% in Water 1,000 ML IVC PRN (01:57)
[2018-07-26] MEDS ORDERED: Dextrose Gel 15 GM/37.5 ML TUBE PO PRN ×2 (01:57)
[2018-07-26 05:04] LABS: INR 2.5; Prothrombin Time 28.6 Seconds (9.4-12.1)
[2018-07-26] MEDS: Insulin LISPRO 300 UNITS/3 ML VIAL SQ SCH ×3 (08:20→17:14)
[2018-07-26] MEDS: BuPROPion XL (24 HR) 150 MG TABLET PO SCH (08:21)
[2018-07-26] MEDS: Aspirin 81 MG TAB.CHEW PO SCH (08:21)
[2018-07-26] MEDS: Venlafaxine XR (24 HR) 150 MG CAP.ER.24H PO SCH (08:21)
--- NOTE | 2018-07-26 12:30 | Event Note ---
Date of Encounter: 07/26/18 Time of Encounter: 12:28 Patient seen and evaluated at bedside. Reports feeling well, denies chest pain , palpitation, nausea or vomiting. As well as headache or visual abnormalities. Vital signs are stable, heart rate in the low 50s. But patient asymptomatic.
[2018-07-26] MEDS ORDERED: *HR* Warfarin 5 MG TABLET PO SCH (18:00)
[2018-07-26] MEDS: *HR* Metoprolol 5 MG/5 ML VIAL IVP SCH (20:29)
[2018-07-26] MEDS ORDERED: Insulin LISPRO 300 UNITS/3 ML VIAL SQ SCH (21:00)
[2018-07-27 06:42] VITALS: BP 137/76
[2018-07-27] MEDS: Venlafaxine XR (24 HR) 150 MG CAP.ER.24H PO SCH (08:00)
[2018-07-27] MEDS: BuPROPion XL (24 HR) 150 MG TABLET PO SCH (08:00)
[2018-07-27] MEDS: Insulin LISPRO 300 UNITS/3 ML VIAL SQ SCH (08:01)
[2018-07-27] MEDS: Aspirin 81 MG TAB.CHEW PO SCH (08:01)
--- NOTE | 2018-07-27 09:05 | Discharge Summary ---
- NOTES TO OUTPATIENT PROVIDER Notes to Outpatient Provider: Cardiology within a week. Orders not resulted at time of discharge: Pending orders 07/26/18 08:38 ECG 12 lead ECG [ECG] Stat Date of Encounter: 07/27/18 Time of Encounter: 09:03 - Discharge Diagnosis (1) Atrial fibrillation with RVR Priority: Secondary Status: Resolved (2) Chest pain Priority: Secondary Status: Resolved Qualifiers: Chest pain type: unspecified Qualified Code(s): R07.9 - Chest pain, unspecified (3) Hypothyroid Priority: Secondary Status: Chronic Qualifiers: Hypothyroidism type: postablative Qualified Code(s): E89.0 - Postprocedural hypothyroidism (4) DVT prophylaxis Priority: Secondary Status: Chronic (5) Coronary artery disease Priority: Secondary Status: Chronic Qualifiers: Coronary Disease-Associated Artery/Lesion type: [place] artery [place] vs. transplanted heart: [place] heart Associated angina: angina presence unspecified Qualified Code(s): I25.10 - Atherosclerotic heart disease of [place] coronary artery without angina pectoris (6) Type 2 diabetes mellitus Priority: Secondary Status: Chronic Qualifiers: Diabetes mellitus assisted insulin use: without equipment operator intermodal yard use Diabetes mellitus complication status: without complication Qualified Code(s): E11.9 - Type 2 diabetes mellitus without complications (7) Tobacco abuse Priority: Secondary Status: Chronic Hospital course: Ms. Kong is a 72 year old female past medical history of asthma, A. fib, CHF , CAD, diabetes, GERD, hyperlipidemia, hypertension and hypothyroidism due to Graves' disease status post radioiodine ablation. Patient presented to the emergency room complaining of jaw and chest pain. In the emergency room patient was found to be on A. fib with RVR. Patient treated with IV metoprolol , after which convert sinus rhythm, also with resolution of the chest and jaw pain. Patient kept in the hospital for 24 hours for observation, no jaw pain, no chest pain or no A. fib with RVR event on telemetry reported. Patient is hemodynamically stable to be discharged. Recommended to follow-up with cardiology within a week. - Time Spent with Patient Total time spent providing and/or coordinating discharge services: Less than 30 minutes - Discharge Medications Home Medications: Bupropion HCl [Wellbutrin Xl] 300 mg PO DAILY 12/27/16 [History] Fluticasone Propionate Nasal [Flonase] 50 mcg NS DAILY PRN 12/27/16 [History] Loratadine [Claritin] 10 mg PO DAILY PRN 12/27/16 [History] Omeprazole [PriLOSEC] 20 mg PO DAILY 12/27/16 [History] Venlafaxine XR (24 HR) [Effexor Xr] 150 mg PO DAILY 12/27/16 [History] Aspirin 81 mg PO DAILY #30 tab.chew 12/29/16 [Rx] Albuterol Sulfate [Proair Hfa] 2 puff IH Q4-6H PRN 04/20/17 [History] Dicyclomine [Bentyl] 40 mg PO QID 03/28/18 [History] Sotalol [Betapace] 80 mg PO Q12H 03/29/18 [History] Levothyroxine [Synthroid] 175 mcg PO DAILY 07/26/18 [History] Simethicone [Gas Relief] 125 mg PO Q6H PRN 07/26/18 [History] Warfarin Sodium 5 mg PO MOWEFRSA 07/26/18 [History] Warfarin [Coumadin] 7.5 mg PO SUTUTH 07/26/18 [History] Allergies/Adverse Reactions: 3 Allergy/AdvReac Type Severity Reaction Status Date / Time Amoxicillin Allergy Rash Verified 03/29/18 10:00 clavulanic acid Allergy Rash Verified 03/29/18 10:00 [From Augmentin] clopidogrel [From Plavix] Allergy Rash Verified 03/29/18 10:00 Dygtkig-Fdl-Hos Reductase Allergy Rash Verified 03/29/18 10:00 Inhibitor [Statins] Sulfa (Sulfonamide Allergy Rash Verified 03/29/18 10:00 Antibiotics) Influenza Virus Vaccines AdvReac Severe Hives Verified 07/26/18 01:12 amlodipine [From Norvasc] AdvReac Rash Verified 03/29/18 10:00 diltiazem [From Cardizem] AdvReac Itching Verified 03/29/18 10:00 latex AdvReac Rash Verified 03/29/18 10:00 ticagrelor [From Brilinta] AdvReac Diarrhea Verified 03/29/18 10:00 Date of admission: 07/26/18 00:29 Primary care physician: Harjeet Arias MD - Constitutional Vitals: Temp Pulse Resp BP Pulse Ox 98.0 F 53 15 137/76 98 07/27/18 06:40 07/27/18 06:40 07/27/18 06:40 07/27/18 06:40 07/27/18 06:40 Exam: General: Alert and oriented 4. In no acute distress. Skin:Normal color, no rash, no lesions. HEENT:EOM, pupils equal, round and reactive. Cardiovascular: irregularly irregular, Normal S1 & S2, no rubs, murmurs or gallops. JVD about 6cm. Lungs: Clear to auscultation bilaterally, no wheezes or crackles. Abdomen: Soft, non-tender, no rigidity. NABS in all 4 quadrants. Extremities: No edema or tenderness, no joint swelling or clubbing. Neurological: Normal cognition and motor skills. CN II-XII intact. Rest of the physical exam is non contributory - Patient Status Disposition: Home, Self-Care Condition: Good Functional capacity at discharge: independent ambulation Overall status at discharge: patient is back to baseline - Discharge Instructions Follow Up With: Harjeet Arias MD [Primary Care Provider] - - Diet and Activity Activity: resume usual activities as tolerated Diet: diabetic diet
[2018-07-27] MEDS ORDERED: *HR* Warfarin 5 MG TABLET PO SCH (18:00)
--- NOTE | 2018-07-28 17:35 | Electrocardiograph Report ---
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
--- NOTE | 2018-07-28 17:42 | Electrocardiograph Report ---
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
--- NOTE | 2018-07-28 17:48 | Electrocardiograph Report ---
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
== END 2018-07-27 14:23 | disposition home or self-care (01) ==
LOC: 2NENU 19:55 → EMEROOARM 19:55 → SUATTDRO 07-26 00:29 → 2NENU 07-26 00:30
PROVIDERS: ADMIT Family Medicine; ATTEND Internal Medicine

== ENCOUNTER 2019-12-15 13:34 | Observation (INO) ==
[2019-12-15] MEDS ORDERED: *HR* Metoprolol 5 MG/5 ML VIAL IVP ONE ×2 (13:54→16:38)
[2019-12-15] MEDS ORDERED: DilTIAZem 50 MG in 0.9 % Sodium Chloride 40 ML IVC SCH (14:00)
[2019-12-15 14:11] LABS: Basophils % 0.4 %; Eosinophils # 0.1 K/mcL (0.0-0.6); Eosinophils % 1.3 %; Hematocrit 47.7 % (35.3-44.9); Hemoglobin 16.8 g/dL (11.5-15.4); Immature Granulocytes % 0.6 % (0-4); Lymphocytes # 2.6 K/mcL (0.6-4.6); Mean Corpuscular HGB Conc 35.2 g/dL (31.6-35.5); Mean Corpuscular Hemoglobin 30.5 pg (28.0-33.3); Mean Corpuscular Volume 86.7 fL (83.0-100.0); Mean Platelet Volume 10.2 fL (9.4-12.4); Monocytes # 0.6 K/mcL (0.0-1.3); Monocytes % 6.3 %; Neutrophils # 6.8 K/mcL (1.6-8.9); Platelet Count 314 K/mcL (140-400); Segmented Neutrophils % 66.4 %; White Blood Count 10.2 K/mcL (4.3-11.1)
[2019-12-15 14:18] LABS: INR 2.1; Prothrombin Time 24.4 Seconds (9.4-12.1)
[2019-12-15 14:20] LABS: Activated Partial Thrombo Time 35.6 Seconds (26.0-36.0)
[2019-12-15 14:36] LABS: Troponin I 0.04 ng/mL (< 0.04)
[2019-12-15 14:50] LABS: Calcium 9.1 mg/dL (8.6-10.3); Potassium 3.8 mEq/L (3.5-5.1)
[2019-12-15] MEDS ORDERED: Naloxone 0.4 MG/ML INJ IVP PRN (16:30)
[2019-12-15] MEDS ORDERED: Acetaminophen 325 MG TABLET PO PRN (16:30)
[2019-12-15] MEDS ORDERED: Ondansetron 4 MG/2 ML VIAL IVP PRN (16:30)
[2019-12-15] MEDS ORDERED: Warfarin perPT PO PRN (18:00)
[2019-12-15] MEDS ORDERED: *HR* Warfarin 7.5 MG TABLET PO ONE (18:36)
[2019-12-16] MEDS ORDERED: *HR* LORazepam 2 MG/ML VIAL IVP ONE (02:03)
[2019-12-16 06:54] LABS: Hematocrit 38.5 % (35.3-44.9); Mean Corpuscular HGB Conc 35.1 g/dL (31.6-35.5); Mean Corpuscular Hemoglobin 30.5 pg (28.0-33.3); Mean Corpuscular Volume 87.1 fL (83.0-100.0); Mean Platelet Volume 10.5 fL (9.4-12.4); Platelet Count 212 K/mcL (140-400); Red Blood Count 4.42 M/mcL (3.82-4.97); Red Cell Distribution Width 12.9 % (11.5-14.5); White Blood Count 11.7 K/mcL (4.3-11.1)
[2019-12-16 06:58] LABS: Prothrombin Time 22.6 Seconds (9.4-12.1)
[2019-12-16 07:04] LABS: Hemoglobin 13.5 g/dL (11.5-15.4)
[2019-12-16 07:15] LABS: Calcium 8.6 mg/dL (8.6-10.3); Magnesium 1.7 mg/dL (1.6-2.6); Potassium 4.1 mEq/L (3.5-5.1)
[2019-12-16 07:21] LABS: Troponin I 0.06 ng/mL (< 0.04)
[2019-12-16 07:29] LABS: Thyroid Stimulating Hormone 7.455 mcIU/mL (0.340-5.600)
[2019-12-16 07:51] VITALS: BP 153/89
[2019-12-16] MEDS ORDERED: Aspirin 81 MG TAB.CHEW PO SCH (09:00)
[2019-12-16] MEDS ORDERED: Venlafaxine XR (24 HR) 150 MG CAP.ER.24H PO SCH (09:00)
== END 2019-12-16 11:43 | disposition home or self-care (01) ==
LOC: SUATTDRO → EMEROOARM 13:34 → 2NENU 13:34 → SUATTDRO 18:11 → 2NENU 20:00
PROVIDERS: ADMIT Internal Medicine; ATTEND Internal Medicine

== ENCOUNTER 2019-12-17 11:30 | Inpatient (IN) ==
[2019-12-17] MEDS ORDERED: Nitroglycerin 0.4 MG TAB.SUBL SL PRN (11:41)
[2019-12-17] MEDS ORDERED: *HR* Heparin 5,000 UNIT/ML VIAL ONE (12:14)
[2019-12-17] MEDS ORDERED: Aspirin 81 MG TAB.CHEW ONE (12:14)
[2019-12-17] MEDS ORDERED: *HR* Ticagrelor 90 MG TABLET ONE (12:14)
[2019-12-17] MEDS ORDERED: 0.9 % Sodium Chloride 1,000 ML ONE ×2 (12:14→20:30)
[2019-12-17 12:24] LABS: Basophils % 0.4 %; Eosinophils # 0.2 K/mcL (0.0-0.6); Eosinophils % 1.6 %; Hematocrit 38.7 % (35.3-44.9); Hemoglobin 13.9 g/dL (11.5-15.4); Immature Granulocytes % 0.3 % (0-4); Lymphocytes # 2.2 K/mcL (0.6-4.6); Lymphocytes % 23.8 %; Mean Corpuscular HGB Conc 35.9 g/dL (31.6-35.5); Mean Corpuscular Volume 86.2 fL (83.0-100.0); Mean Platelet Volume 10.2 fL (9.4-12.4); Monocytes # 0.5 K/mcL (0.0-1.3); Monocytes % 5.5 %; Neutrophils # 6.3 K/mcL (1.6-8.9); Platelet Count 216 K/mcL (140-400); Red Blood Count 4.49 M/mcL (3.82-4.97); Red Cell Distribution Width 12.9 % (11.5-14.5); Segmented Neutrophils % 68.4 %; White Blood Count 9.3 K/mcL (4.3-11.1)
[2019-12-17] MEDS ORDERED: Heparin 1,000 UNITS/500 mL 500 ML ONE ×2 (12:28→14:08)
[2019-12-17] MEDS ORDERED: 0.9 % Sodium Chloride 2,000 ML ONE ×2 (12:28→13:07)
[2019-12-17] MEDS ORDERED: ISOVUE-370 200 ML INFUS..BTL ONE ×3 (12:29→15:34)
[2019-12-17] MEDS ORDERED: *HR* Heparin 10,000 UNIT/10 ML VIAL ONE ×2 (12:29→14:08)
[2019-12-17] MEDS ORDERED: Nitroglycerin 1,000 MCG/10 ML VIAL IV ONE ×2 (12:29→14:09)
[2019-12-17 12:30] LABS: INR 1.8; Prothrombin Time 20.5 Seconds (9.4-12.1)
[2019-12-17 12:32] LABS: Activated Partial Thrombo Time 31.6 Seconds (26.0-36.0)
[2019-12-17] MEDS ORDERED: 0.9 % Sodium Chloride 1,000 ML IVC ONE (12:39)
[2019-12-17 13:03] LABS: BUN/Creatinine Ratio 24 (6-26); Blood Urea Nitrogen 21 mg/dL (8-23); Calcium 8.5 mg/dL (8.6-10.3); Carbon Dioxide 23 mEq/L (23-29); Chloride 102 mEq/L (98-107); Glucose 199 mg/dL (70-105); Osmolality,Calculated 285 (280-300); Potassium 4.2 mEq/L (3.5-5.1); Sodium 133 mEq/L (136-145); Troponin I 0.04 ng/mL (< 0.04); eGFR For African Americans > 60 (> 60); eGFR For Non-African Americans > 60 (> 60)
[2019-12-17] MEDS ORDERED: *HR* Midazolam HCl 2 MG/2 ML VIAL ONE (14:45)
[2019-12-17] MEDS ORDERED: *HR* FentaNYL (PF) 100 MCG/2 ML VIAL ONE (14:45)
[2019-12-17] MEDS ORDERED: Tirofiban 12.5 MG/250ML 12.5 MG/250 ML BAG ONE (14:51)
[2019-12-17] MEDS: Nitroglycerin 0.4 MG PATCH.TD24 TD SCH (18:10)
[2019-12-17] MEDS ORDERED: Perflutren Lipid Microsphere 1.3 ML in 0.9 % Sodium Chloride 8.7 ML IVP ONE (18:15)
[2019-12-17] MEDS: *HR* Ticagrelor 90 MG TABLET PO SCH (21:43)
[2019-12-18] MEDS ORDERED: Acetaminophen 325 MG TABLET PO ONE (02:57)
[2019-12-18 05:41] LABS: Basophils % 0.3 %; Eosinophils # 0.1 K/mcL (0.0-0.6); Eosinophils % 1.3 %; Hematocrit 36.6 % (35.3-44.9); Hemoglobin 12.4 g/dL (11.5-15.4); Immature Granulocytes % 0.4 % (0-4); Lymphocytes # 1.4 K/mcL (0.6-4.6); Lymphocytes % 12.6 %; Mean Corpuscular HGB Conc 33.9 g/dL (31.6-35.5); Mean Corpuscular Hemoglobin 30.8 pg (28.0-33.3); Mean Corpuscular Volume 90.8 fL (83.0-100.0); Mean Platelet Volume 10.5 fL (9.4-12.4); Monocytes # 0.7 K/mcL (0.0-1.3); Monocytes % 6.6 %; Neutrophils # 8.8 K/mcL (1.6-8.9); Platelet Count 181 K/mcL (140-400); Red Blood Count 4.03 M/mcL (3.82-4.97); Red Cell Distribution Width 12.9 % (11.5-14.5); Segmented Neutrophils % 78.8 %; White Blood Count 11.1 K/mcL (4.3-11.1)
[2019-12-18 06:07] LABS: BUN/Creatinine Ratio 20 (6-26); Blood Urea Nitrogen 19 mg/dL (8-23); Calcium 8.8 mg/dL (8.6-10.3); Carbon Dioxide 24 mEq/L (23-29); Chloride 102 mEq/L (98-107); Glucose 180 mg/dL (70-105); Osmolality,Calculated 291 (280-300); Potassium 4.2 mEq/L (3.5-5.1); Sodium 137 mEq/L (136-145); eGFR For African Americans > 60 (> 60); eGFR For Non-African Americans 58 (> 60)
[2019-12-18] MEDS: Nitroglycerin 0.4 MG PATCH.TD24 TD SCH (09:17)
[2019-12-18] MEDS: Venlafaxine XR (24 HR) 150 MG CAP.ER.24H PO SCH (09:17)
[2019-12-18] MEDS: *HR* Glimepiride 2 MG TABLET PO SCH (09:17)
[2019-12-18] MEDS: *HR* Ticagrelor 90 MG TABLET PO SCH ×2 (09:18→20:14)
[2019-12-18] MEDS: Aspirin 81 MG TAB.CHEW PO SCH (09:18)
[2019-12-18] MEDS: BuPROPion XL (24 HR) 150 MG TABLET PO SCH (09:18)
[2019-12-18] MEDS ORDERED: *HR* Warfarin 7.5 MG TABLET PO SCH (18:00)
[2019-12-19] MEDS: Nitroglycerin 0.4 MG PATCH.TD24 TD SCH (07:32)
[2019-12-19] MEDS: *HR* Glimepiride 2 MG TABLET PO SCH (08:45)
[2019-12-19] MEDS: BuPROPion XL (24 HR) 150 MG TABLET PO SCH (08:45)
[2019-12-19] MEDS: *HR* Ticagrelor 90 MG TABLET PO SCH ×2 (08:45→22:04)
[2019-12-19] MEDS: Aspirin 81 MG TAB.CHEW PO SCH (08:45)
[2019-12-19] MEDS: Venlafaxine XR (24 HR) 150 MG CAP.ER.24H PO SCH (08:45)
[2019-12-19 10:36] LABS: Basophils % 0.5 %; Eosinophils # 0.2 K/mcL (0.0-0.6); Eosinophils % 2.2 %; Hemoglobin 11.3 g/dL (11.5-15.4); Immature Granulocytes % 0.5 % (0-4); Lymphocytes # 1.3 K/mcL (0.6-4.6); Lymphocytes % 16.8 %; Mean Corpuscular HGB Conc 34.2 g/dL (31.6-35.5); Mean Corpuscular Hemoglobin 30.7 pg (28.0-33.3); Mean Corpuscular Volume 89.7 fL (83.0-100.0); Mean Platelet Volume 10.5 fL (9.4-12.4); Monocytes # 0.6 K/mcL (0.0-1.3); Monocytes % 7.7 %; Neutrophils # 5.6 K/mcL (1.6-8.9); Platelet Count 146 K/mcL (140-400); Red Blood Count 3.68 M/mcL (3.82-4.97); Segmented Neutrophils % 72.3 %; White Blood Count 7.8 K/mcL (4.3-11.1)
[2019-12-19 10:40] LABS: INR 1.3; Prothrombin Time 15.1 Seconds (9.4-12.1)
[2019-12-19 10:57] LABS: BUN/Creatinine Ratio 19 (6-26); Blood Urea Nitrogen 18 mg/dL (8-23); Calcium 8.7 mg/dL (8.6-10.3); Carbon Dioxide 21 mEq/L (23-29); Chloride 102 mEq/L (98-107); Glucose 299 mg/dL (70-105); Osmolality,Calculated 291 (280-300); Potassium 3.8 mEq/L (3.5-5.1); Sodium 134 mEq/L (136-145); eGFR For African Americans > 60 (> 60); eGFR For Non-African Americans 58 (> 60)
[2019-12-19] MEDS ORDERED: Nitroglycerin 0.4 MG TAB.SUBL SL PRN (13:38)
[2019-12-19 16:58] LABS: Hematocrit 32.8 % (35.3-44.9); Hemoglobin 11.1 g/dL (11.5-15.4)
[2019-12-19] MEDS ORDERED: *HR* Warfarin 5 MG TABLET PO ONE ×2 (18:00)
[2019-12-20 01:49] LABS: Basophils # 0.1 K/mcL (0.0-0.2); Basophils % 0.5 %; Eosinophils # 0.2 K/mcL (0.0-0.6); Eosinophils % 2.1 %; Hematocrit 31.5 % (35.3-44.9); Hemoglobin 11.1 g/dL (11.5-15.4); Immature Granulocytes % 0.5 % (0-4); Lymphocytes # 2.1 K/mcL (0.6-4.6); Lymphocytes % 20.7 %; Mean Corpuscular HGB Conc 35.2 g/dL (31.6-35.5); Mean Platelet Volume 10.6 fL (9.4-12.4); Monocytes # 0.8 K/mcL (0.0-1.3); Monocytes % 7.6 %; Platelet Count 158 K/mcL (140-400); Red Blood Count 3.58 M/mcL (3.82-4.97); Red Cell Distribution Width 13.1 % (11.5-14.5); Segmented Neutrophils % 68.6 %; White Blood Count 10.2 K/mcL (4.3-11.1)
[2019-12-20 02:06] LABS: INR 1.4; Prothrombin Time 15.9 Seconds (9.4-12.1)
[2019-12-20] MEDS: BuPROPion XL (24 HR) 150 MG TABLET PO SCH (10:33)
[2019-12-20] MEDS: Aspirin 81 MG TAB.CHEW PO SCH (10:35)
[2019-12-20] MEDS: *HR* Ticagrelor 90 MG TABLET PO SCH ×2 (10:36→20:14)
[2019-12-20] MEDS: Venlafaxine XR (24 HR) 150 MG CAP.ER.24H PO SCH (10:36)
[2019-12-20] MEDS: *HR* Glimepiride 2 MG TABLET PO SCH (10:39)
[2019-12-20] MEDS ORDERED: 0.9 % Sodium Chloride 500 ML IVC ONE (15:25)
[2019-12-20 16:54] LABS: Hematocrit 30.9 % (35.3-44.9); Hemoglobin 10.7 g/dL (11.5-15.4)
[2019-12-20] MEDS ORDERED: *HR* Warfarin 7.5 MG TABLET PO SCH (18:00)
[2019-12-21 05:20] LABS: Basophils % 0.3 %; Eosinophils # 0.2 K/mcL (0.0-0.6); Eosinophils % 2.2 %; Hematocrit 31.1 % (35.3-44.9); Hemoglobin 10.8 g/dL (11.5-15.4); Immature Granulocytes % 0.5 % (0-4); Lymphocytes # 2.3 K/mcL (0.6-4.6); Mean Corpuscular HGB Conc 34.7 g/dL (31.6-35.5); Mean Corpuscular Hemoglobin 30.8 pg (28.0-33.3); Mean Corpuscular Volume 88.6 fL (83.0-100.0); Monocytes # 0.6 K/mcL (0.0-1.3); Monocytes % 6.3 %; Neutrophils # 6.4 K/mcL (1.6-8.9); Platelet Count 151 K/mcL (140-400); Red Blood Count 3.51 M/mcL (3.82-4.97); Red Cell Distribution Width 13.1 % (11.5-14.5); Segmented Neutrophils % 66.7 %; White Blood Count 9.6 K/mcL (4.3-11.1)
[2019-12-21 05:24] LABS: INR 1.7
[2019-12-21 05:41] LABS: BUN/Creatinine Ratio 21 (6-26); Blood Urea Nitrogen 21 mg/dL (8-23); Calcium 8.6 mg/dL (8.6-10.3); Carbon Dioxide 23 mEq/L (23-29); Chloride 105 mEq/L (98-107); Glucose 145 mg/dL (70-105); Osmolality,Calculated 292 (280-300); Potassium 4.3 mEq/L (3.5-5.1); Sodium 138 mEq/L (136-145); eGFR For African Americans > 60 (> 60); eGFR For Non-African Americans 55 (> 60)
[2019-12-21] MEDS: BuPROPion XL (24 HR) 150 MG TABLET PO SCH (08:19)
[2019-12-21] MEDS: *HR* Ticagrelor 90 MG TABLET PO SCH ×2 (08:19→20:55)
[2019-12-21] MEDS: *HR* Glimepiride 2 MG TABLET PO SCH (08:20)
[2019-12-21] MEDS: Aspirin 81 MG TAB.CHEW PO SCH (08:20)
[2019-12-21] MEDS: Venlafaxine XR (24 HR) 150 MG CAP.ER.24H PO SCH (08:20)
[2019-12-21] MEDS ORDERED: *HR* FentaNYL (PF) 100 MCG/2 ML VIAL ONE (15:59)
[2019-12-21] MEDS ORDERED: *HR* Propofol 200 MG/20 ML VIAL IVP ONE (16:00)
[2019-12-21] MEDS ORDERED: Vancomycin 1,000 MG VIAL ONE (16:00)
[2019-12-21] MEDS ORDERED: Heparin 1,000 UNITS/500 mL 500 ML ONE (16:00)
[2019-12-21] MEDS ORDERED: Lidocaine -MPF 2% 2 ML VIAL ONE (16:03)
[2019-12-21] MEDS ORDERED: Ondansetron 4 MG/2 ML VIAL ONE ×2 (16:03→17:17)
[2019-12-21] MEDS ORDERED: *HR* Rocuronium Bromide 50 MG/5 ML VIAL ONE (16:03)
[2019-12-21] MEDS ORDERED: Lidocaine HCL 4 ML Topical Solution (Laryng-O-Jet Kit Sterile Pak) TP ONE (16:03)
[2019-12-21] MEDS ORDERED: Water for inj. (sterile) 20 ML ONE (16:24)
[2019-12-21] MEDS ORDERED: Bupivacaine-MPF 0.25% 10 ML VIAL ONE (16:57)
[2019-12-21] MEDS ORDERED: EPHEDrine 50 MG/ML VIAL ONE (17:19)
[2019-12-21] MEDS ORDERED: *HR* PHENYLEPHRINE 1,000 MCG/10 ML SYRINGE IVP ONE (17:30)
[2019-12-21] MEDS ORDERED: *HR* Atropine Sulfate 8 MG/20 ML VIAL IVP ONE (17:46)
[2019-12-21] MEDS ORDERED: ceFAZolin 2,000 MG in Water for inj. (sterile) 20 ML IVP ONE (17:52)
[2019-12-21] MEDS ORDERED: EPINEPHrine 1 MG/ML VIAL ONE (17:53)
[2019-12-21] MEDS ORDERED: *HR* Warfarin 7.5 MG TABLET PO SCH (18:00)
[2019-12-21] MEDS ORDERED: Warfarin perPT PO PRN (18:00)
[2019-12-21] MEDS ORDERED: *HR* OxyCODONE Immed Rel 5 MG TABLET PO PRN (18:10)
[2019-12-21] MEDS ORDERED: Morphine Sulfate 2 MG/ML SYRINGE IVP PRN (18:10)
[2019-12-21] MEDS ORDERED: Ondansetron 4 MG/2 ML VIAL IVP ONE (18:10)
[2019-12-21] MEDS ORDERED: *HR* LORazepam 2 MG/ML VIAL IVP ONE (20:36)
[2019-12-21] MEDS ORDERED: tiZANidine 4 MG TABLET PO ONE (20:37)
[2019-12-21] MEDS ORDERED: Naloxone 0.4 MG/ML INJ IVP PRN (21:41)
[2019-12-21] MEDS ORDERED: ceFAZolin 2,000 MG in 0.9 % Sodium Chloride 100 ML IVPB SCH (23:30)
[2019-12-22] MEDS ORDERED: *HR* LORazepam 2 MG/ML VIAL IVP ONE (04:11)
[2019-12-22] MEDS ORDERED: Dextrose Gel 15 GM/37.5 ML TUBE PO PRN ×2 (04:37)
[2019-12-22] MEDS ORDERED: D5% in Water 1,000 ML IVC PRN (04:37)
[2019-12-22] MEDS ORDERED: *HR* Dextrose 50 % in Water (Syg) 50 ML SYRINGE IVP PRN (04:37)
[2019-12-22 05:09] LABS: Basophils % 0.4 %; Eosinophils # 0.1 K/mcL (0.0-0.6); Hematocrit 27.6 % (35.3-44.9); Immature Granulocytes % 0.5 % (0-4); Lymphocytes # 1.3 K/mcL (0.6-4.6); Lymphocytes % 12.2 %; Mean Corpuscular HGB Conc 33.3 g/dL (31.6-35.5); Mean Corpuscular Hemoglobin 30.9 pg (28.0-33.3); Mean Corpuscular Volume 92.6 fL (83.0-100.0); Mean Platelet Volume 11.1 fL (9.4-12.4); Monocytes # 0.5 K/mcL (0.0-1.3); Monocytes % 4.8 %; Neutrophils # 8.9 K/mcL (1.6-8.9); Platelet Count 142 K/mcL (140-400); Red Blood Count 2.98 M/mcL (3.82-4.97); Red Cell Distribution Width 13.1 % (11.5-14.5); Segmented Neutrophils % 81.1 %
[2019-12-22 05:16] LABS: INR 1.6; Prothrombin Time 18.7 Seconds (9.4-12.1)
[2019-12-22 05:19] LABS: Hemoglobin 9.2 g/dL (11.5-15.4)
[2019-12-22 05:30] LABS: Calcium 8.2 mg/dL (8.6-10.3); Potassium 4.1 mEq/L (3.5-5.1)
[2019-12-22] MEDS: Calcium Gluconate 1gm/50mL 1 GM/50 ML BAG IVPB SCH ×2 (06:16→07:29)
[2019-12-22] MEDS ORDERED: 0.9 % Sodium Chloride 1,000 ML IVC SCH (08:00)
[2019-12-22] MEDS: Insulin LISPRO 300 UNITS/3 ML VIAL SQ SCH ×4 (09:27→21:13)
[2019-12-22] MEDS: BuPROPion XL (24 HR) 150 MG TABLET PO SCH (09:37)
[2019-12-22] MEDS: Aspirin 81 MG TAB.CHEW PO SCH (09:37)
[2019-12-22] MEDS: *HR* Ticagrelor 90 MG TABLET PO SCH ×2 (09:37→21:09)
[2019-12-22] MEDS: Venlafaxine XR (24 HR) 150 MG CAP.ER.24H PO SCH (09:37)
[2019-12-22] MEDS: *HR* Glimepiride 2 MG TABLET PO SCH (09:37)
[2019-12-22] MEDS ORDERED: 0.9 % Sodium Chloride 250 ML ONE (13:53)
[2019-12-22] MEDS ORDERED: *HR* Warfarin 5 MG TABLET PO ONE (18:00)
[2019-12-22 22:07] LABS: Hematocrit 33.1 % (35.3-44.9); Hemoglobin 10.8 g/dL (11.5-15.4)
[2019-12-23 05:09] LABS: Basophils % 0.2 %; Eosinophils # 0.2 K/mcL (0.0-0.6); Eosinophils % 2.2 %; Hemoglobin 10.2 g/dL (11.5-15.4); Immature Granulocytes % 0.4 % (0-4); Lymphocytes # 1.5 K/mcL (0.6-4.6); Lymphocytes % 18.6 %; Mean Corpuscular Volume 91.2 fL (83.0-100.0); Mean Platelet Volume 10.7 fL (9.4-12.4); Monocytes # 0.5 K/mcL (0.0-1.3); Monocytes % 6.5 %; Platelet Count 132 K/mcL (140-400); Red Blood Count 3.29 M/mcL (3.82-4.97); Red Cell Distribution Width 13.7 % (11.5-14.5); Segmented Neutrophils % 72.1 %; White Blood Count 8.3 K/mcL (4.3-11.1)
[2019-12-23 05:17] LABS: INR 1.4; Prothrombin Time 16.1 Seconds (9.4-12.1)
[2019-12-23 05:31] LABS: BUN/Creatinine Ratio 20 (6-26); Blood Urea Nitrogen 19 mg/dL (8-23); Calcium 8.5 mg/dL (8.6-10.3); Carbon Dioxide 24 mEq/L (23-29); Chloride 106 mEq/L (98-107); Glucose 119 mg/dL (70-105); Magnesium 1.6 mg/dL (1.6-2.6); Osmolality,Calculated 289 (280-300); Phosphorous 3.4 mg/dL (2.7-4.5); Potassium 4.1 mEq/L (3.5-5.1); Sodium 138 mEq/L (136-145); eGFR For African Americans > 60 (> 60); eGFR For Non-African Americans 56 (> 60)
[2019-12-23] MEDS: *HR* Ticagrelor 90 MG TABLET PO SCH ×2 (08:12→20:59)
[2019-12-23] MEDS: Aspirin 81 MG TAB.CHEW PO SCH (08:13)
[2019-12-23] MEDS: Venlafaxine XR (24 HR) 150 MG CAP.ER.24H PO SCH (08:13)
[2019-12-23] MEDS: BuPROPion XL (24 HR) 150 MG TABLET PO SCH (08:14)
[2019-12-23] MEDS: *HR* Glimepiride 2 MG TABLET PO SCH (08:14)
[2019-12-23] MEDS: Insulin LISPRO 300 UNITS/3 ML VIAL SQ SCH ×4 (08:20→20:59)
[2019-12-23] MEDS ORDERED: *HR* Warfarin 7.5 MG TABLET PO ONE (18:00)
[2019-12-24 00:48] LABS: Basophils % 0.3 %; Eosinophils # 0.3 K/mcL (0.0-0.6); Eosinophils % 3.1 %; Hematocrit 32.1 % (35.3-44.9); Hemoglobin 10.9 g/dL (11.5-15.4); Immature Granulocytes % 0.5 % (0-4); Lymphocytes # 2.2 K/mcL (0.6-4.6); Lymphocytes % 20.4 %; Mean Corpuscular Hemoglobin 30.5 pg (28.0-33.3); Mean Corpuscular Volume 89.9 fL (83.0-100.0); Mean Platelet Volume 10.8 fL (9.4-12.4); Monocytes # 0.6 K/mcL (0.0-1.3); Monocytes % 5.9 %; Neutrophils # 7.6 K/mcL (1.6-8.9); Platelet Count 177 K/mcL (140-400); Red Blood Count 3.57 M/mcL (3.82-4.97); Red Cell Distribution Width 13.8 % (11.5-14.5); Segmented Neutrophils % 69.8 %; White Blood Count 10.8 K/mcL (4.3-11.1)
[2019-12-24 00:50] LABS: INR 1.3; Prothrombin Time 14.3 Seconds (9.4-12.1)
[2019-12-24 01:03] LABS: BUN/Creatinine Ratio 16 (6-26); Blood Urea Nitrogen 15 mg/dL (8-23); Calcium 9.1 mg/dL (8.6-10.3); Carbon Dioxide 25 mEq/L (23-29); Chloride 106 mEq/L (98-107); Glucose 107 mg/dL (70-105); Magnesium 1.7 mg/dL (1.6-2.6); Osmolality,Calculated 287 (280-300); Phosphorous 3.4 mg/dL (2.7-4.5); Potassium 4.2 mEq/L (3.5-5.1); Sodium 138 mEq/L (136-145); eGFR For African Americans > 60 (> 60); eGFR For Non-African Americans 56 (> 60)
[2019-12-24] MEDS: *HR* Ticagrelor 90 MG TABLET PO SCH ×2 (08:54→20:57)
[2019-12-24] MEDS: *HR* Glimepiride 2 MG TABLET PO SCH (08:55)
[2019-12-24] MEDS: Venlafaxine XR (24 HR) 150 MG CAP.ER.24H PO SCH (08:57)
[2019-12-24] MEDS: BuPROPion XL (24 HR) 150 MG TABLET PO SCH (08:57)
[2019-12-24] MEDS: Aspirin 81 MG TAB.CHEW PO SCH (08:58)
[2019-12-24] MEDS: Insulin LISPRO 300 UNITS/3 ML VIAL SQ SCH ×4 (09:00→20:58)
[2019-12-24] MEDS ORDERED: *HR* Warfarin 7.5 MG TABLET PO ONE (18:00)
[2019-12-25 01:31] LABS: Basophils % 0.4 %; Eosinophils # 0.3 K/mcL (0.0-0.6); Eosinophils % 3.3 %; Hematocrit 31.5 % (35.3-44.9); Hemoglobin 10.9 g/dL (11.5-15.4); Immature Granulocytes % 0.4 % (0-4); Lymphocytes # 2.3 K/mcL (0.6-4.6); Lymphocytes % 22.8 %; Mean Corpuscular HGB Conc 34.6 g/dL (31.6-35.5); Mean Corpuscular Hemoglobin 31.6 pg (28.0-33.3); Mean Corpuscular Volume 91.3 fL (83.0-100.0); Mean Platelet Volume 10.6 fL (9.4-12.4); Monocytes # 0.7 K/mcL (0.0-1.3); Monocytes % 7.1 %; Neutrophils # 6.6 K/mcL (1.6-8.9); Platelet Count 194 K/mcL (140-400); Red Blood Count 3.45 M/mcL (3.82-4.97); Red Cell Distribution Width 13.5 % (11.5-14.5)
[2019-12-25 01:37] LABS: INR 1.6; Prothrombin Time 18.2 Seconds (9.4-12.1)
[2019-12-25 01:51] LABS: BUN/Creatinine Ratio 16 (6-26); Blood Urea Nitrogen 15 mg/dL (8-23); Calcium 9.2 mg/dL (8.6-10.3); Carbon Dioxide 24 mEq/L (23-29); Chloride 105 mEq/L (98-107); Glucose 99 mg/dL (70-105); Magnesium 1.6 mg/dL (1.6-2.6); Osmolality,Calculated 287 (280-300); Potassium 3.8 mEq/L (3.5-5.1); Sodium 138 mEq/L (136-145); eGFR For African Americans > 60 (> 60); eGFR For Non-African Americans 58 (> 60)
[2019-12-25] MEDS: Insulin LISPRO 300 UNITS/3 ML VIAL SQ SCH ×2 (08:02→11:24)
[2019-12-25] MEDS: *HR* Ticagrelor 90 MG TABLET PO SCH (08:38)
[2019-12-25] MEDS: *HR* Glimepiride 2 MG TABLET PO SCH (08:38)
[2019-12-25] MEDS: Aspirin 81 MG TAB.CHEW PO SCH (08:39)
[2019-12-25] MEDS: BuPROPion XL (24 HR) 150 MG TABLET PO SCH (08:39)
[2019-12-25] MEDS: Venlafaxine XR (24 HR) 150 MG CAP.ER.24H PO SCH (08:39)
[2019-12-25 14:06] VITALS: BP 140/62
[2019-12-25] MEDS ORDERED: *HR* Warfarin 5 MG TABLET PO ONE (18:00)
== END 2019-12-25 15:30 | disposition home or self-care (01) | DRG 247 ==
LOC: EMEROOARM 11:30 → ICNU 11:30 → SUATTDRO 15:45 → 2NENU 12-19 17:23
PROVIDERS: ADMIT Internal Medicine Cardiovascular Disease; ATTEND Internal Medicine

== ENCOUNTER 2020-01-24 15:12 | Inpatient (IN) ==
[2020-01-24 16:12] LABS: Basophils % 0.4 %; Eosinophils # 0.1 K/mcL (0.0-0.6); Eosinophils % 0.5 %; Hematocrit 45.8 % (35.3-44.9); Hemoglobin 15.6 g/dL (11.5-15.4); Immature Granulocytes % 0.7 % (0-4); Lymphocytes # 1.8 K/mcL (0.6-4.6); Lymphocytes % 16.8 %; Mean Corpuscular HGB Conc 34.1 g/dL (31.6-35.5); Mean Corpuscular Hemoglobin 31.2 pg (28.0-33.3); Mean Corpuscular Volume 91.6 fL (83.0-100.0); Monocytes # 0.7 K/mcL (0.0-1.3); Monocytes % 6.1 %; Neutrophils # 8.1 K/mcL (1.6-8.9); Platelet Count 272 K/mcL (140-400); Red Cell Distribution Width 14.2 % (11.5-14.5); Segmented Neutrophils % 75.5 %; White Blood Count 10.8 K/mcL (4.3-11.1)
[2020-01-24 16:35] LABS: Alanine Aminotransferase 18 Units/L (7-52); Albumin 4.1 g/dL (3.5-5.7); Albumin/Globulin Ratio 1.1 (1.1-2.2); Alkaline Phosphatase 118 Units/L (34-104); Aspartate Amino Transferase 16 Units/L (13-39); BUN/Creatinine Ratio 23 (6-26); Bilirubin,Total 0.8 mg/dL (0.3-1.0); Blood Urea Nitrogen 28 mg/dL (8-23); Calcium 9.8 mg/dL (8.6-10.3); Carbon Dioxide 25 mEq/L (23-29); Chloride 100 mEq/L (98-107); Globulin 3.8 g/dL (2.4-3.5); Glucose 218 mg/dL (70-105); Magnesium 1.8 mg/dL (1.6-2.6); Osmolality,Calculated 292 (280-300); Potassium 3.9 mEq/L (3.5-5.1); Sodium 135 mEq/L (136-145); Total Protein 7.9 g/dL (6.4-8.9); Troponin I < 0.03 ng/mL (< 0.04); eGFR For African Americans 51 (> 60); eGFR For Non-African Americans 42 (> 60)
[2020-01-24] MEDS ORDERED: Acetaminophen 325 MG TABLET PO PRN (18:03)
[2020-01-24] MEDS ORDERED: Naloxone 0.4 MG/ML INJ IVP PRN (18:03)
[2020-01-24 18:05] LABS: INR 1.9; Prothrombin Time 21.9 Seconds (9.4-12.1)
[2020-01-24] MEDS ORDERED: *HR* Dextrose 50 % in Water (Syg) 50 ML SYRINGE IVP PRN (18:08)
[2020-01-24] MEDS ORDERED: D5% in Water 1,000 ML IVC PRN (18:08)
[2020-01-24] MEDS ORDERED: Dextrose Gel 15 GM/37.5 ML TUBE PO PRN ×2 (18:08)
[2020-01-24] MEDS ORDERED: Nitroglycerin 0.4 MG TAB.SUBL SL PRN (18:09)
[2020-01-24] MEDS ORDERED: Fluticasone Propionate Nasal 50 MCG/SPRAY BOTTLE NS PRN (18:09)
[2020-01-24] MEDS ORDERED: Warfarin perPT PO PRN (18:09)
[2020-01-24] MEDS ORDERED: 0.9 % Sodium Chloride 500 ML IVC SCH (18:15)
[2020-01-24] MEDS ORDERED: *HR* Enoxaparin 80 MG/0.8 ML SYRINGE SQ SCH (18:15)
[2020-01-24 18:19] LABS: Thyroid Stimulating Hormone 7.745 mcIU/mL (0.340-5.600)
[2020-01-24] MEDS ORDERED: *HR* Warfarin 7.5 MG TABLET PO ONE (20:07)
[2020-01-24] MEDS: *HR* Ticagrelor 90 MG TABLET PO SCH (20:40)
[2020-01-24] MEDS: Insulin LISPRO 300 UNITS/3 ML VIAL SQ SCH (20:47)
[2020-01-24] MEDS ORDERED: Insulin LISPRO 300 UNITS/3 ML VIAL SQ SCH (21:00)
[2020-01-25 04:43] LABS: Basophils % 0.3 %; Eosinophils # 0.1 K/mcL (0.0-0.6); Eosinophils % 0.7 %; Hematocrit 43.9 % (35.3-44.9); Hemoglobin 14.7 g/dL (11.5-15.4); Immature Granulocytes % 0.6 % (0-4); Lymphocytes # 2.3 K/mcL (0.6-4.6); Lymphocytes % 20.4 %; Mean Corpuscular HGB Conc 33.5 g/dL (31.6-35.5); Mean Corpuscular Hemoglobin 30.6 pg (28.0-33.3); Mean Corpuscular Volume 91.3 fL (83.0-100.0); Mean Platelet Volume 10.1 fL (9.4-12.4); Monocytes # 0.7 K/mcL (0.0-1.3); Monocytes % 6.6 %; Neutrophils # 7.9 K/mcL (1.6-8.9); Platelet Count 255 K/mcL (140-400); Red Blood Count 4.81 M/mcL (3.82-4.97); Red Cell Distribution Width 14.1 % (11.5-14.5); Segmented Neutrophils % 71.4 %
[2020-01-25 04:55] LABS: INR 2.1
[2020-01-25 05:04] LABS: BUN/Creatinine Ratio 28 (6-26); Blood Urea Nitrogen 33 mg/dL (8-23); Calcium 9.1 mg/dL (8.6-10.3); Carbon Dioxide 21 mEq/L (23-29); Chloride 105 mEq/L (98-107); Glucose 198 mg/dL (70-105); Magnesium 2.2 mg/dL (1.6-2.6); Osmolality,Calculated 297 (280-300); Potassium 3.7 mEq/L (3.5-5.1); Sodium 137 mEq/L (136-145); Troponin I < 0.03 ng/mL (< 0.04); eGFR For African Americans 54 (> 60); eGFR For Non-African Americans 45 (> 60)
[2020-01-25] MEDS: BuPROPion XL (24 HR) 150 MG TABLET PO SCH (08:29)
[2020-01-25] MEDS: Venlafaxine XR (24 HR) 150 MG CAP.ER.24H PO SCH (08:29)
[2020-01-25] MEDS: *HR* Ticagrelor 90 MG TABLET PO SCH ×2 (08:30→20:21)
[2020-01-25] MEDS: Cholecalciferol (D-3) 1,000 UNIT (25MCG) TABLET PO SCH (08:31)
[2020-01-25] MEDS: Insulin LISPRO 300 UNITS/3 ML VIAL SQ SCH ×4 (08:52→20:22)
[2020-01-25] MEDS ORDERED: Aspirin 81 MG TAB.CHEW PO SCH (09:00)
[2020-01-25] MEDS ORDERED: *HR* Warfarin 5 MG TABLET PO ONE (18:00)
[2020-01-25] MEDS ORDERED: *HR* Enoxaparin 80 MG/0.8 ML SYRINGE SQ SCH (18:15)
[2020-01-25 20:45] LABS: Bilirubin,Urine Small (Negative); Blood,Urine Negative (Negative); Clarity,Urine Clear (Clear); Color,Urine Yellow (Yellow); Glucose,Urine (UA) Normal (Normal); Ketones,Urine Negative (Negative); Leukocyte Esterase,Urine Negative (Negative); Nitrite,Urine Negative (Negative); Protein,Urine Trace mg/dL (Neg-Trace); Specific Gravity,Urine > 1.030 (1.010-1.025); Urobilinogen,Urine Normal (Normal)
[2020-01-26 03:41] LABS: INR 2.8; Prothrombin Time 31.3 Seconds (9.4-12.1)
[2020-01-26] MEDS: Insulin LISPRO 300 UNITS/3 ML VIAL SQ SCH ×4 (09:46→20:19)
[2020-01-26] MEDS: BuPROPion XL (24 HR) 150 MG TABLET PO SCH (09:49)
[2020-01-26] MEDS: *HR* Ticagrelor 90 MG TABLET PO SCH ×2 (09:50→20:17)
[2020-01-26] MEDS: lisinopriL 5 MG TABLET PO SCH (09:50)
[2020-01-26] MEDS: Venlafaxine XR (24 HR) 150 MG CAP.ER.24H PO SCH (09:50)
[2020-01-26] MEDS: Cholecalciferol (D-3) 1,000 UNIT (25MCG) TABLET PO SCH (09:50)
[2020-01-26] MEDS ORDERED: *HR* Warfarin 2.5 MG TABLET PO ONE (18:00)
[2020-01-27 04:46] LABS: INR 2.5; Prothrombin Time 28.6 Seconds (9.4-12.1)
[2020-01-27] MEDS: Insulin LISPRO 300 UNITS/3 ML VIAL SQ SCH ×4 (08:02→20:49)
[2020-01-27] MEDS: *HR* Ticagrelor 90 MG TABLET PO SCH ×2 (09:44→20:49)
[2020-01-27] MEDS: Venlafaxine XR (24 HR) 150 MG CAP.ER.24H PO SCH (09:45)
[2020-01-27] MEDS: BuPROPion XL (24 HR) 150 MG TABLET PO SCH (09:48)
[2020-01-27] MEDS: Cholecalciferol (D-3) 1,000 UNIT (25MCG) TABLET PO SCH (09:48)
[2020-01-27] MEDS: lisinopriL 5 MG TABLET PO SCH (09:50)
[2020-01-27] MEDS: *HR* Amiodarone 200 MG TABLET PO SCH ×2 (09:55→20:49)
[2020-01-27] MEDS ORDERED: *HR* Warfarin 5 MG TABLET PO ONE (18:00)
[2020-01-28 03:03] LABS: INR 2.1; Prothrombin Time 24.4 Seconds (9.4-12.1)
[2020-01-28 07:23] VITALS: BP 112/73
[2020-01-28] MEDS: *HR* Ticagrelor 90 MG TABLET PO SCH (09:37)
[2020-01-28] MEDS: lisinopriL 5 MG TABLET PO SCH (09:38)
[2020-01-28] MEDS: BuPROPion XL (24 HR) 150 MG TABLET PO SCH (09:38)
[2020-01-28] MEDS: Cholecalciferol (D-3) 1,000 UNIT (25MCG) TABLET PO SCH (09:38)
[2020-01-28] MEDS: *HR* Amiodarone 200 MG TABLET PO SCH (09:39)
[2020-01-28] MEDS: Venlafaxine XR (24 HR) 150 MG CAP.ER.24H PO SCH (09:39)
[2020-01-28] MEDS: Insulin LISPRO 300 UNITS/3 ML VIAL SQ SCH (10:01)
[2020-01-28] MEDS ORDERED: *HR* Warfarin 5 MG TABLET PO ONE (18:00)
== END 2020-01-28 13:00 | disposition home health service (06) ==
LOC: EMEROOARM 15:12 → 3BNU 15:12 → SUATTDRO 18:06 → 3BNU 19:31
PROVIDERS: ADMIT Internal Medicine; ATTEND Internal Medicine

== ENCOUNTER 2020-02-01 13:33 | Inpatient (IN) ==
[2020-02-01] MEDS ORDERED: *HR* Metoprolol 5 MG/5 ML VIAL IVP ONE (13:52)
[2020-02-01] MEDS ORDERED: 0.9 % Sodium Chloride 1,000 ML IVC ONE (14:03)
[2020-02-01 14:14] LABS: Basophils % 0.4 %; Eosinophils % 0.4 %; Hematocrit 40.5 % (35.3-44.9); Hemoglobin 13.7 g/dL (11.5-15.4); Immature Granulocytes % 0.4 % (0-4); Lymphocytes # 1.5 K/mcL (0.6-4.6); Lymphocytes % 16.5 %; Mean Corpuscular HGB Conc 33.8 g/dL (31.6-35.5); Mean Corpuscular Hemoglobin 31.1 pg (28.0-33.3); Mean Corpuscular Volume 91.8 fL (83.0-100.0); Monocytes # 0.4 K/mcL (0.0-1.3); Monocytes % 4.2 %; Platelet Count 229 K/mcL (140-400); Red Blood Count 4.41 M/mcL (3.82-4.97); Red Cell Distribution Width 13.6 % (11.5-14.5); Segmented Neutrophils % 78.1 %
[2020-02-01 14:31] LABS: BUN/Creatinine Ratio 26 (6-26); Blood Urea Nitrogen 40 mg/dL (8-23); Calcium 9.2 mg/dL (8.6-10.3); Carbon Dioxide 21 mEq/L (23-29); Chloride 103 mEq/L (98-107); Glucose 256 mg/dL (70-105); Osmolality,Calculated 297 (280-300); Potassium 4.1 mEq/L (3.5-5.1); Sodium 134 mEq/L (136-145); eGFR For African Americans 39 (> 60); eGFR For Non-African Americans 32 (> 60)
[2020-02-01 14:32] LABS: Troponin I < 0.03 ng/mL (< 0.04)
[2020-02-01] MEDS ORDERED: *HR* Amiodarone 200 MG TABLET PO ONE (15:30)
[2020-02-01 15:51] LABS: INR 2.5; Prothrombin Time 28.1 Seconds (9.4-12.1)
[2020-02-01] MEDS ORDERED: Naloxone 0.4 MG/ML INJ IVP PRN (16:41)
[2020-02-01] MEDS ORDERED: Ondansetron ODT 4 MG TAB.RAPDIS SL PRN (16:41)
[2020-02-01] MEDS ORDERED: Nitroglycerin 0.4 MG TAB.SUBL SL PRN (17:20)
[2020-02-01] MEDS ORDERED: *HR* Metoprolol 5 MG/5 ML VIAL IVP PRN (17:30)
[2020-02-01] MEDS ORDERED: *HR* Dextrose 50 % in Water (Syg) 50 ML SYRINGE IVP PRN (17:34)
[2020-02-01] MEDS ORDERED: Dextrose Gel 15 GM/37.5 ML TUBE PO PRN ×2 (17:34)
[2020-02-01] MEDS ORDERED: D5% in Water 1,000 ML IVC PRN (17:34)
[2020-02-01] MEDS ORDERED: *HR* Warfarin 5 MG TABLET PO SCH (18:00)
[2020-02-01] MEDS ORDERED: 0.9 % Sodium Chloride 1,000 ML IVC SCH (18:00)
[2020-02-01 18:05] LABS: Magnesium 1.7 mg/dL (1.6-2.6)
[2020-02-01 18:19] LABS: Thyroid Stimulating Hormone 5.137 mcIU/mL (0.340-5.600)
[2020-02-01] MEDS: *HR* Amiodarone 200 MG TABLET PO SCH (21:19)
[2020-02-01] MEDS: Insulin LISPRO 300 UNITS/3 ML VIAL SQ SCH (21:28)
[2020-02-01] MEDS ORDERED: 0.9 % Sodium Chloride 500 ML IVC SCH (22:00)
[2020-02-02 01:55] LABS: Hematocrit 34.9 % (35.3-44.9); INR 2.4; Mean Corpuscular HGB Conc 33.5 g/dL (31.6-35.5); Mean Corpuscular Hemoglobin 31.2 pg (28.0-33.3); Mean Corpuscular Volume 93.1 fL (83.0-100.0); Mean Platelet Volume 11.3 fL (9.4-12.4); Platelet Count 194 K/mcL (140-400); Prothrombin Time 27.4 Seconds (9.4-12.1); Red Blood Count 3.75 M/mcL (3.82-4.97); Red Cell Distribution Width 13.8 % (11.5-14.5); White Blood Count 9.5 K/mcL (4.3-11.1)
[2020-02-02 01:57] LABS: Hemoglobin 11.7 g/dL (11.5-15.4)
[2020-02-02 02:11] LABS: Calcium 8.5 mg/dL (8.6-10.3); Potassium 4.6 mEq/L (3.5-5.1)
[2020-02-02] MEDS: Venlafaxine XR (24 HR) 150 MG CAP.ER.24H PO SCH (07:25)
[2020-02-02] MEDS: Cholecalciferol (D-3) 1,000 UNIT (25MCG) TABLET PO SCH (07:25)
[2020-02-02] MEDS: lisinopriL 5 MG TABLET PO SCH (07:25)
[2020-02-02] MEDS: BuPROPion XL (24 HR) 150 MG TABLET PO SCH (07:25)
[2020-02-02] MEDS: *HR* Amiodarone 200 MG TABLET PO SCH ×2 (07:25→20:21)
[2020-02-02] MEDS: Insulin LISPRO 300 UNITS/3 ML VIAL SQ SCH ×4 (07:26→20:22)
[2020-02-02] MEDS ORDERED: *HR* Amiodarone 200 MG TABLET PO ONE (14:02)
[2020-02-02] MEDS ORDERED: Warfarin perPT PO PRN (18:00)
[2020-02-02] MEDS ORDERED: *HR* Warfarin 5 MG TABLET PO SCH (18:00)
[2020-02-03 02:02] LABS: INR 2.6; Prothrombin Time 29.5 Seconds (9.4-12.1)
[2020-02-03 07:10] VITALS: BP 143/61
[2020-02-03] MEDS: BuPROPion XL (24 HR) 150 MG TABLET PO SCH (07:24)
[2020-02-03] MEDS: *HR* Amiodarone 200 MG TABLET PO SCH (07:24)
[2020-02-03] MEDS: Venlafaxine XR (24 HR) 150 MG CAP.ER.24H PO SCH (07:25)
[2020-02-03] MEDS: lisinopriL 5 MG TABLET PO SCH (07:25)
[2020-02-03] MEDS: Cholecalciferol (D-3) 1,000 UNIT (25MCG) TABLET PO SCH (07:26)
[2020-02-03] MEDS: Insulin LISPRO 300 UNITS/3 ML VIAL SQ SCH (07:26)
[2020-02-07] MEDS ORDERED: NON-FORMULARY MEDICATION 1 EACH EACH (Alendronate Sodium [Fosamax] 70 MG) PO SCH (17:20)
== END 2020-02-03 11:46 | disposition home or self-care (01) ==
LOC: EMEROOARM 13:33 → 2ANU 13:33 → SUATTDRO 15:41 → 2ANU 16:21 → SUATTDRO 02-02 14:54
PROVIDERS: ADMIT Family Medicine; ATTEND Internal Medicine

== ENCOUNTER 2020-02-09 15:22 | Observation (INO) ==
[2020-02-09 17:33] LABS: Basophils % 0.4 %; Eosinophils # 0.1 K/mcL (0.0-0.6); Eosinophils % 1.8 %; Hematocrit 32.9 % (35.3-44.9); Immature Granulocytes % 0.3 % (0-4); Lymphocytes # 1.5 K/mcL (0.6-4.6); Lymphocytes % 20.4 %; Mean Corpuscular HGB Conc 33.1 g/dL (31.6-35.5); Mean Corpuscular Hemoglobin 30.9 pg (28.0-33.3); Mean Corpuscular Volume 93.2 fL (83.0-100.0); Mean Platelet Volume 10.8 fL (9.4-12.4); Monocytes # 0.4 K/mcL (0.0-1.3); Monocytes % 5.9 %; Neutrophils # 5.3 K/mcL (1.6-8.9); Platelet Count 151 K/mcL (140-400); Red Blood Count 3.53 M/mcL (3.82-4.97); Red Cell Distribution Width 13.9 % (11.5-14.5); Segmented Neutrophils % 71.2 %; White Blood Count 7.4 K/mcL (4.3-11.1)
[2020-02-09 17:34] LABS: Hemoglobin 10.9 g/dL (11.5-15.4)
[2020-02-09 17:40] LABS: Activated Partial Thrombo Time 55.4 Seconds (26.0-36.0)
[2020-02-09 17:48] LABS: INR 8.9
[2020-02-09 17:49] LABS: Prothrombin Time 101.8 Seconds (9.4-12.1)
[2020-02-09 17:53] LABS: Alanine Aminotransferase 14 Units/L (7-52); Albumin 3.5 g/dL (3.5-5.7); Albumin/Globulin Ratio 1.2 (1.1-2.2); Alkaline Phosphatase 109 Units/L (34-104); Aspartate Amino Transferase 11 Units/L (13-39); BUN/Creatinine Ratio 17 (6-26); Bilirubin,Direct 0.1 mg/dL (0.0-0.2); Bilirubin,Indirect 0.3 mg/dL (0.0-1.0); Bilirubin,Total 0.4 mg/dL (0.3-1.0); Blood Urea Nitrogen 21 mg/dL (8-23); Calcium 8.8 mg/dL (8.6-10.3); Carbon Dioxide 21 mEq/L (23-29); Chloride 106 mEq/L (98-107); Globulin 2.9 g/dL (2.4-3.5); Glucose 138 mg/dL (70-105); Osmolality,Calculated 287 (280-300); Potassium 3.9 mEq/L (3.5-5.1); Sodium 136 mEq/L (136-145); Total Protein 6.4 g/dL (6.4-8.9); Troponin I < 0.03 ng/mL (< 0.04); eGFR For African Americans 51 (> 60); eGFR For Non-African Americans 42 (> 60)
[2020-02-09] MEDS ORDERED: *HR* Phytonadione 5 MG TABLET PO ONE (17:56)
[2020-02-09] MEDS ORDERED: Naloxone 0.4 MG/ML INJ IVP PRN (18:15)
[2020-02-09] MEDS ORDERED: Ondansetron 4 MG/2 ML VIAL IVP PRN (18:15)
[2020-02-09] MEDS ORDERED: Fluticasone Propionate Nasal 50 MCG/SPRAY BOTTLE NS PRN (18:34)
[2020-02-09] MEDS ORDERED: Nitroglycerin 0.4 MG TAB.SUBL SL PRN (18:34)
[2020-02-09] MEDS: *HR* Amiodarone 200 MG TABLET PO SCH (20:15)
[2020-02-10 01:33] LABS: Basophils % 0.4 %; Eosinophils # 0.2 K/mcL (0.0-0.6); Eosinophils % 2.1 %; Hematocrit 32.6 % (35.3-44.9); Hemoglobin 11.1 g/dL (11.5-15.4); Immature Granulocytes % 0.3 % (0-4); Lymphocytes # 2.5 K/mcL (0.6-4.6); Lymphocytes % 32.7 %; Mean Corpuscular Hemoglobin 31.6 pg (28.0-33.3); Mean Corpuscular Volume 92.9 fL (83.0-100.0); Monocytes # 0.4 K/mcL (0.0-1.3); Monocytes % 5.4 %; Neutrophils # 4.6 K/mcL (1.6-8.9); Platelet Count 151 K/mcL (140-400); Red Blood Count 3.51 M/mcL (3.82-4.97); Red Cell Distribution Width 13.9 % (11.5-14.5); Segmented Neutrophils % 59.1 %; White Blood Count 7.8 K/mcL (4.3-11.1)
[2020-02-10 01:40] LABS: INR 8.6; Prothrombin Time 97.8 Seconds (9.4-12.1)
[2020-02-10 01:53] LABS: Calcium 8.8 mg/dL (8.6-10.3)
[2020-02-10 05:09] LABS: Bilirubin,Urine Negative (Negative); Blood,Urine Negative (Negative); Clarity,Urine Cloudy (Clear); Color,Urine Yellow (Yellow); Glucose,Urine (UA) Normal (Normal); Ketones,Urine Negative (Negative); Leukocyte Esterase,Urine Negative (Negative); Nitrite,Urine Negative (Negative); PH,Urine 5.5 pH Units (5.0-8.0); Protein,Urine Negative (Neg-Trace); Specific Gravity,Urine 1.019 (1.010-1.025); Urobilinogen,Urine Normal (Normal)
[2020-02-10 05:11] LABS: Hyaline Casts,Urine None Seen per lpf (None-Few); RBC,Urine 0-3 per hpf (0-3); Squamous Epithelial Cell,Urine Many per lpf (None-Few); WBC,Urine 0-3 per hpf (0-3)
[2020-02-10 05:27] LABS: Bacteria,Urine Moderate per hpf (None-Few); Calcium Oxalate Crystals,Urine Present
[2020-02-10 05:28] LABS: Mucus,Urine Few per lpf (Few)
[2020-02-10 07:16] VITALS: BP 138/77
[2020-02-10] MEDS ORDERED: lisinopriL 5 MG TABLET PO SCH (09:00)
[2020-02-10] MEDS ORDERED: *HR* Glimepiride 2 MG TABLET PO SCH (09:00)
[2020-02-10] MEDS ORDERED: Cholecalciferol (D-3) 1,000 UNIT (25MCG) TABLET PO SCH (09:00)
[2020-02-10] MEDS ORDERED: BuPROPion XL (24 HR) 150 MG TABLET PO SCH (09:00)
[2020-02-10] MEDS ORDERED: Venlafaxine XR (24 HR) 150 MG CAP.ER.24H PO SCH (09:00)
[2020-02-10] MEDS: *HR* Amiodarone 200 MG TABLET PO SCH (09:05)
[2020-02-10 10:14] LABS: INR 5.8
[2020-02-10 10:15] LABS: Prothrombin Time 66.3 Seconds (9.4-12.1)
[2020-02-10] MEDS ORDERED: *HR* Phytonadione 5 MG TABLET PO ONE (10:26)
== END 2020-02-10 10:57 | disposition left against medical advice (07) ==
LOC: EMEROOARM 15:22 → 2ANU 15:22 → SUATTDRO 18:11 → 2ANU 19:02
PROVIDERS: ADMIT Internal Medicine; ATTEND Family Medicine

== ENCOUNTER 2020-02-13 13:30 | Inpatient (IN) ==
[2020-02-13] MEDS ORDERED: *HR* Metoprolol 5 MG/5 ML VIAL IVP PRN (13:35)
[2020-02-13] MEDS ORDERED: Ondansetron ODT 4 MG TAB.RAPDIS SL ONE (13:49)
[2020-02-13] MEDS ORDERED: Ipratropium/Albuterol Neb 3 ML IH ONE (13:49)
[2020-02-13] MEDS ORDERED: *HR* Amiodarone 200 MG TABLET PO ONE (13:49)
[2020-02-13] MEDS ORDERED: Amiodarone Premix 360 MG/200 ML BAG IVC ONE ×2 (13:51→23:44)
[2020-02-13] MEDS ORDERED: Amiodarone Premix 150 MG/100 ML BAG IVPB ONE (13:51)
[2020-02-13 14:49] LABS: Basophils % 0.3 %; Eosinophils # 0.1 K/mcL (0.0-0.6); Eosinophils % 0.9 %; Hematocrit 37.4 % (35.3-44.9); Hemoglobin 12.6 g/dL (11.5-15.4); Immature Granulocytes % 0.3 % (0-4); Lymphocytes # 1.3 K/mcL (0.6-4.6); Lymphocytes % 16.3 %; Mean Corpuscular HGB Conc 33.7 g/dL (31.6-35.5); Mean Corpuscular Hemoglobin 31.3 pg (28.0-33.3); Mean Platelet Volume 10.4 fL (9.4-12.4); Monocytes # 0.4 K/mcL (0.0-1.3); Monocytes % 4.4 %; Neutrophils # 6.2 K/mcL (1.6-8.9); Platelet Count 181 K/mcL (140-400); Red Blood Count 4.02 M/mcL (3.82-4.97); Red Cell Distribution Width 13.6 % (11.5-14.5); Segmented Neutrophils % 77.8 %; White Blood Count 7.9 K/mcL (4.3-11.1)
[2020-02-13 14:53] LABS: INR 1.1; Prothrombin Time 12.6 Seconds (9.4-12.1)
[2020-02-13 14:55] LABS: Activated Partial Thrombo Time 23.4 Seconds (26.0-36.0)
[2020-02-13 15:10] LABS: BUN/Creatinine Ratio 11 (6-26); Blood Urea Nitrogen 16 mg/dL (8-23); Calcium 9.1 mg/dL (8.6-10.3); Carbon Dioxide 21 mEq/L (23-29); Chloride 104 mEq/L (98-107); Glucose 286 mg/dL (70-105); Osmolality,Calculated 294 (280-300); Potassium 3.9 mEq/L (3.5-5.1); Sodium 136 mEq/L (136-145); eGFR For African Americans 43 (> 60); eGFR For Non-African Americans 35 (> 60)
[2020-02-13 15:11] LABS: Troponin I < 0.03 ng/mL (< 0.04)
[2020-02-13] MEDS ORDERED: Magnesium Oxide 400 MG TABLET PO STA (15:12)
[2020-02-13] MEDS ORDERED: Naloxone 0.4 MG/ML INJ IVP PRN (15:43)
[2020-02-13] MEDS ORDERED: 0.9 % Sodium Chloride 1,000 ML IVC SCH (15:45)
[2020-02-13] MEDS ORDERED: Dextrose Gel 15 GM/37.5 ML TUBE PO PRN ×2 (15:51)
[2020-02-13] MEDS ORDERED: D5% in Water 1,000 ML IVC PRN (15:51)
[2020-02-13] MEDS ORDERED: Nitroglycerin 0.4 MG TAB.SUBL SL PRN (15:51)
[2020-02-13] MEDS ORDERED: *HR* Dextrose 50 % in Water (Syg) 50 ML SYRINGE IVP PRN (15:51)
[2020-02-13] MEDS ORDERED: *HR* Warfarin 5 MG TABLET PO ONE (18:00)
[2020-02-13] MEDS ORDERED: Warfarin perPT PO PRN (18:00)
[2020-02-13] MEDS: *HR* Amiodarone 200 MG TABLET PO SCH (19:39)
[2020-02-13] MEDS: Magnesium Oxide 400 MG TABLET PO SCH (19:40)
[2020-02-13] MEDS: Insulin LISPRO 300 UNITS/3 ML VIAL SQ SCH ×2 (22:13→22:14)
[2020-02-13] MEDS ORDERED: Amiodarone Premix 360 MG/200 ML BAG IVC SCH (23:45)
[2020-02-14 06:36] LABS: Hematocrit 31.7 % (35.3-44.9); Mean Corpuscular HGB Conc 34.1 g/dL (31.6-35.5); Mean Corpuscular Volume 94.1 fL (83.0-100.0); Mean Platelet Volume 9.8 fL (9.4-12.4); Platelet Count 146 K/mcL (140-400); Red Blood Count 3.37 M/mcL (3.82-4.97); Red Cell Distribution Width 13.6 % (11.5-14.5); White Blood Count 6.7 K/mcL (4.3-11.1)
[2020-02-14 06:37] LABS: Hemoglobin 10.8 g/dL (11.5-15.4)
[2020-02-14 06:47] LABS: INR 1.2; Prothrombin Time 13.2 Seconds (9.4-12.1)
[2020-02-14 06:49] LABS: Activated Partial Thrombo Time 26.3 Seconds (26.0-36.0)
[2020-02-14 06:54] LABS: Calcium 8.5 mg/dL (8.6-10.3); Magnesium 1.4 mg/dL (1.6-2.6); Potassium 3.9 mEq/L (3.5-5.1)
[2020-02-14] MEDS: Ondansetron ODT 4 MG TAB.RAPDIS SL PRN (07:47)
[2020-02-14] MEDS: Insulin LISPRO 300 UNITS/3 ML VIAL SQ SCH ×4 (07:48→21:14)
[2020-02-14] MEDS: Magnesium Oxide 400 MG TABLET PO SCH ×2 (07:49→19:28)
[2020-02-14] MEDS: *HR* Amiodarone 200 MG TABLET PO SCH (07:49)
[2020-02-14] MEDS: BuPROPion XL (24 HR) 150 MG TABLET PO SCH (07:49)
[2020-02-14] MEDS: Cholecalciferol (D-3) 1,000 UNIT (25MCG) TABLET PO SCH (07:49)
[2020-02-14] MEDS: Venlafaxine XR (24 HR) 150 MG CAP.ER.24H PO SCH (07:49)
[2020-02-14] MEDS ORDERED: *HR* Heparin 5,000 UNIT/ML VIAL IVP ONE (09:44)
[2020-02-14] MEDS ORDERED: *HR* Heparin 5,000 UNIT/ML VIAL IVP PRN ×2 (09:44)
[2020-02-14] MEDS: Heparin 25,000 UNIT/250 ML D5W 25,000 UNIT/250 ML IV.SOLN IVC SCH (11:15)
[2020-02-14 12:52] LABS: Hematocrit 32.4 % (35.3-44.9); Hemoglobin 10.9 g/dL (11.5-15.4)
[2020-02-14] MEDS: Aspirin Enteric Coated 81 MG Tablet PO SCH (15:17)
[2020-02-14] MEDS ORDERED: NON-FORMULARY MEDICATION 1 EACH EACH (Alendronate Sodium [Fosamax] 70 MG) PO SCH (15:51)
[2020-02-14] MEDS ORDERED: *HR* Warfarin 5 MG TABLET PO ONE (18:00)
[2020-02-15 02:08] LABS: INR 1.2; Prothrombin Time 14.1 Seconds (9.4-12.1)
[2020-02-15 02:13] LABS: Hematocrit 29.9 % (35.3-44.9); Hemoglobin 10.1 g/dL (11.5-15.4); Mean Corpuscular HGB Conc 33.8 g/dL (31.6-35.5); Mean Corpuscular Hemoglobin 32.1 pg (28.0-33.3); Mean Corpuscular Volume 94.9 fL (83.0-100.0); Mean Platelet Volume 9.9 fL (9.4-12.4); Platelet Count 130 K/mcL (140-400); Red Blood Count 3.15 M/mcL (3.82-4.97); Red Cell Distribution Width 13.5 % (11.5-14.5); White Blood Count 5.1 K/mcL (4.3-11.1)
[2020-02-15 02:24] LABS: Calcium 8.5 mg/dL (8.6-10.3); Potassium 3.9 mEq/L (3.5-5.1)
[2020-02-15] MEDS: Aspirin Enteric Coated 81 MG Tablet PO SCH (07:51)
[2020-02-15] MEDS: Magnesium Oxide 400 MG TABLET PO SCH ×2 (07:51→20:21)
[2020-02-15] MEDS: *HR* Amiodarone 200 MG TABLET PO SCH (07:52)
[2020-02-15] MEDS: Venlafaxine XR (24 HR) 150 MG CAP.ER.24H PO SCH (07:52)
[2020-02-15] MEDS: BuPROPion XL (24 HR) 150 MG TABLET PO SCH (07:52)
[2020-02-15] MEDS: Cholecalciferol (D-3) 1,000 UNIT (25MCG) TABLET PO SCH (07:52)
[2020-02-15] MEDS: Insulin LISPRO 300 UNITS/3 ML VIAL SQ SCH ×4 (07:56→20:47)
[2020-02-15] MEDS: *HR* Ticagrelor 90 MG TABLET PO SCH ×2 (15:29→20:21)
[2020-02-15] MEDS ORDERED: *HR* Warfarin 7.5 MG TABLET PO ONE (18:00)
[2020-02-15] MEDS: Heparin 25,000 UNIT/250 ML D5W 25,000 UNIT/250 ML IV.SOLN IVC SCH (20:24)
[2020-02-16] MEDS: Ondansetron ODT 4 MG TAB.RAPDIS SL PRN ×2 (02:58→11:37)
[2020-02-16 04:46] LABS: Hematocrit 33.3 % (35.3-44.9); Hemoglobin 11.2 g/dL (11.5-15.4); Mean Corpuscular HGB Conc 33.6 g/dL (31.6-35.5); Mean Corpuscular Hemoglobin 31.6 pg (28.0-33.3); Mean Corpuscular Volume 94.1 fL (83.0-100.0); Mean Platelet Volume 9.7 fL (9.4-12.4); Platelet Count 142 K/mcL (140-400); Red Blood Count 3.54 M/mcL (3.82-4.97); Red Cell Distribution Width 13.6 % (11.5-14.5); White Blood Count 6.8 K/mcL (4.3-11.1)
[2020-02-16 04:52] LABS: Heparin anti-factor XA UFH 0.51 IU/mL (0.30-0.70); INR 1.6; Prothrombin Time 18.5 Seconds (9.4-12.1)
[2020-02-16 05:11] LABS: Calcium 9.3 mg/dL (8.6-10.3)
[2020-02-16] MEDS: Cholecalciferol (D-3) 1,000 UNIT (25MCG) TABLET PO SCH (07:58)
[2020-02-16] MEDS: BuPROPion XL (24 HR) 150 MG TABLET PO SCH (07:58)
[2020-02-16] MEDS: *HR* Amiodarone 200 MG TABLET PO SCH (07:58)
[2020-02-16] MEDS: Venlafaxine XR (24 HR) 150 MG CAP.ER.24H PO SCH (07:58)
[2020-02-16] MEDS: *HR* Ticagrelor 90 MG TABLET PO SCH ×2 (07:58→20:40)
[2020-02-16] MEDS: Magnesium Oxide 400 MG TABLET PO SCH ×2 (07:58→20:40)
[2020-02-16] MEDS: Insulin LISPRO 300 UNITS/3 ML VIAL SQ SCH ×4 (07:59→20:42)
[2020-02-16] MEDS ORDERED: *HR* Warfarin 5 MG TABLET PO ONE (18:00)
[2020-02-17] MEDS: Ondansetron ODT 4 MG TAB.RAPDIS SL PRN ×2 (02:39→20:25)
[2020-02-17 04:36] LABS: Hematocrit 32.6 % (35.3-44.9); Hemoglobin 10.8 g/dL (11.5-15.4); Mean Corpuscular HGB Conc 33.1 g/dL (31.6-35.5); Mean Corpuscular Hemoglobin 31.9 pg (28.0-33.3); Mean Corpuscular Volume 96.2 fL (83.0-100.0); Mean Platelet Volume 9.8 fL (9.4-12.4); Platelet Count 125 K/mcL (140-400); Red Blood Count 3.39 M/mcL (3.82-4.97); Red Cell Distribution Width 13.8 % (11.5-14.5); White Blood Count 5.7 K/mcL (4.3-11.1)
[2020-02-17 04:40] LABS: INR 2.1; Prothrombin Time 23.4 Seconds (9.4-12.1)
[2020-02-17 04:54] LABS: Calcium 8.8 mg/dL (8.6-10.3)
[2020-02-17] MEDS: Insulin LISPRO 300 UNITS/3 ML VIAL SQ SCH ×4 (08:08→20:10)
[2020-02-17] MEDS: Magnesium Oxide 400 MG TABLET PO SCH ×2 (08:10→20:26)
[2020-02-17] MEDS: Cholecalciferol (D-3) 1,000 UNIT (25MCG) TABLET PO SCH (08:10)
[2020-02-17] MEDS: *HR* Amiodarone 200 MG TABLET PO SCH (08:10)
[2020-02-17] MEDS: BuPROPion XL (24 HR) 150 MG TABLET PO SCH (08:10)
[2020-02-17] MEDS: Venlafaxine XR (24 HR) 150 MG CAP.ER.24H PO SCH (08:10)
[2020-02-17] MEDS: *HR* Ticagrelor 90 MG TABLET PO SCH (08:10)
[2020-02-17] MEDS: Heparin 25,000 UNIT/250 ML D5W 25,000 UNIT/250 ML IV.SOLN IVC SCH (08:44)
[2020-02-17] MEDS ORDERED: *HR* Warfarin 4 MG TABLET PO ONE (18:00)
[2020-02-17] MEDS ORDERED: *HR* Ticagrelor 90 MG TABLET PO ONE (21:00)
[2020-02-18 00:55] LABS: INR 2.3; Prothrombin Time 25.9 Seconds (9.4-12.1)
[2020-02-18] MEDS: Insulin LISPRO 300 UNITS/3 ML VIAL SQ SCH ×4 (07:54→21:21)
[2020-02-18] MEDS ORDERED: Lidocaine Viscous Oral Soln 15 ML SOLUTION MM PRN (08:16)
[2020-02-18] MEDS ORDERED: 0.9 % Sodium Chloride 500 ML IVC ONE (08:16)
[2020-02-18] MEDS ORDERED: *HR* Midazolam HCl 2 MG/2 ML VIAL IVP PRN (08:17)
[2020-02-18] MEDS ORDERED: *HR* Midazolam HCl 5 MG/5 ML VIAL IVP ONE ×2 (08:43→08:44)
[2020-02-18] MEDS: *HR* FentaNYL (PF) 100 MCG/2 ML VIAL IVP PRN ×3 (09:05→09:18)
[2020-02-18] MEDS: BuPROPion XL (24 HR) 150 MG TABLET PO SCH (12:51)
[2020-02-18] MEDS: Venlafaxine XR (24 HR) 150 MG CAP.ER.24H PO SCH (12:52)
[2020-02-18] MEDS: Magnesium Oxide 400 MG TABLET PO SCH ×2 (12:53→21:20)
[2020-02-18] MEDS: Cholecalciferol (D-3) 1,000 UNIT (25MCG) TABLET PO SCH (12:53)
[2020-02-18] MEDS: *HR* Amiodarone 200 MG TABLET PO SCH (15:21)
[2020-02-18] MEDS ORDERED: *HR* Warfarin 4 MG TABLET PO ONE (18:00)
[2020-02-18] MEDS: Heparin 25,000 UNIT/250 ML D5W 25,000 UNIT/250 ML IV.SOLN IVC SCH (19:28)
[2020-02-19 04:57] LABS: INR 2.5; Prothrombin Time 28.4 Seconds (9.4-12.1)
[2020-02-19] MEDS: Insulin LISPRO 300 UNITS/3 ML VIAL SQ SCH ×2 (08:07→13:07)
[2020-02-19] MEDS: Magnesium Oxide 400 MG TABLET PO SCH (08:08)
[2020-02-19] MEDS: *HR* Amiodarone 200 MG TABLET PO SCH (08:08)
[2020-02-19] MEDS: Venlafaxine XR (24 HR) 150 MG CAP.ER.24H PO SCH (08:08)
[2020-02-19] MEDS: Cholecalciferol (D-3) 1,000 UNIT (25MCG) TABLET PO SCH (08:08)
[2020-02-19] MEDS: BuPROPion XL (24 HR) 150 MG TABLET PO SCH (08:08)
[2020-02-19 10:17] VITALS: BP 132/49
[2020-02-19] MEDS ORDERED: *HR* Warfarin 2 MG TABLET PO ONE (18:00)
== END 2020-02-19 13:35 | disposition home health service (06) | DRG 308 ==
LOC: SUATTDRO → EMEROOARM 13:30 → 3NENU 13:30 → SUATTDRO 16:14 → 3NENU 18:30 → SUATTDRO 02-14 15:20
PROVIDERS: ADMIT Family Medicine; ATTEND Internal Medicine

== ENCOUNTER 2020-08-17 05:26 | Observation (INO) ==
[2020-08-17] MEDS ORDERED: Aspirin 81 MG TAB.CHEW PO ONE (06:13)
[2020-08-17 06:19] LABS: Basophils % 0.6 %; Eosinophils # 0.2 K/mcL (0.0-0.6); Eosinophils % 3.1 %; Hematocrit 34.3 % (35.3-44.9); Hemoglobin 11.4 g/dL (11.5-15.4); Immature Granulocytes % 0.2 % (0-4); Lymphocytes # 1.6 K/mcL (0.6-4.6); Lymphocytes % 24.2 %; Mean Corpuscular HGB Conc 33.2 g/dL (31.6-35.5); Mean Corpuscular Hemoglobin 29.6 pg (28.0-33.3); Mean Corpuscular Volume 89.1 fL (83.0-100.0); Mean Platelet Volume 10.4 fL (9.4-12.4); Monocytes # 0.6 K/mcL (0.0-1.3); Monocytes % 9.5 %; Neutrophils # 4.1 K/mcL (1.6-8.9); Platelet Count 162 K/mcL (140-400); Red Blood Count 3.85 M/mcL (3.82-4.97); Red Cell Distribution Width 13.3 % (11.5-14.5); Segmented Neutrophils % 62.4 %; White Blood Count 6.5 K/mcL (4.3-11.1)
[2020-08-17 06:25] LABS: INR 1.7
[2020-08-17 06:28] LABS: Activated Partial Thrombo Time 31.1 Seconds (26.0-36.0)
[2020-08-17 06:41] LABS: BUN/Creatinine Ratio 13 (6-26); Blood Urea Nitrogen 14 mg/dL (8-23); Calcium 8.7 mg/dL (8.6-10.3); Carbon Dioxide 26 mEq/L (23-29); Chloride 105 mEq/L (98-107); Glucose 146 mg/dL (70-105); Osmolality,Calculated 285 (280-300); Sodium 136 mEq/L (136-145); Troponin I < 0.03 ng/mL (< 0.04); eGFR For African Americans > 60 (> 60); eGFR For Non-African Americans 50 (> 60)
[2020-08-17] MEDS ORDERED: *HR* HYDROcodone/Acet 5/325 mg TABLET PO PRN (07:43)
[2020-08-17] MEDS ORDERED: Naloxone 0.4 MG/ML INJ IVP PRN (07:43)
[2020-08-17] MEDS ORDERED: D5% in Water 1,000 ML IVC PRN (07:48)
[2020-08-17] MEDS ORDERED: Dextrose Gel 15 GM/37.5 ML TUBE PO PRN ×2 (07:48)
[2020-08-17] MEDS ORDERED: *HR* Dextrose 50 % in Water (Vial) 50 ML VIAL IVP PRN (07:48)
[2020-08-17 08:10] LABS: Adenovirus Not Detected (Not Detect); Bordetella Pertussis Not Detected (Not Detect); Chlamydophila pneumoniae Not Detected (Not Detect); Coronavirus 229E Not Detected (Not Detect); Coronavirus HKU1 Not Detected (Not Detect); Coronavirus NL63 Not Detected (Not Detect); Coronavirus OC43 Not Detected (Not Detect); Human Metapneumovirus Not Detected (Not Detect); Human Rhinovirus/Enterovirus Not Detected (Not Detect); Influenza A Subtype 2009 H1 Not Detected (Not Detect); Influenza B Not Detected (Not Detect); Mycoplasma pneumoniae Not Detected (Not Detect); Parainfluenza Virus 1 Not Detected (Not Detect); Parainfluenza Virus 2 Not Detected (Not Detect); Parainfluenza Virus 3 Not Detected (Not Detect); Parainfluenza Virus 4 Not Detected (Not Detect); Respiratory Syncytial Virus Not Detected (Not Detect); SARS-CoV-2 Not Detected (Not Detect)
[2020-08-17] MEDS ORDERED: Nitroglycerin 0.4 MG TAB.SUBL SL PRN (10:14)
[2020-08-17] MEDS ORDERED: Fluticasone Propionate Nasal 50 MCG/SPRAY BOTTLE NS PRN (10:34)
[2020-08-17] MEDS: Furosemide 40 MG/4 ML VIAL IVP SCH ×2 (13:02→21:38)
[2020-08-17] MEDS: Insulin LISPRO 300 UNITS/3 ML VIAL SQ SCH ×2 (13:20→17:52)
[2020-08-17] MEDS ORDERED: Warfarin perPT PO SCH (18:00)
[2020-08-17] MEDS ORDERED: *HR* Warfarin 5 MG TABLET PO ONE (18:00)
[2020-08-17] MEDS: Doxycycline 100 MG CAPSULE PO SCH (21:38)
[2020-08-18] MEDS: Doxycycline 100 MG CAPSULE PO SCH (07:28)
[2020-08-18] MEDS: Furosemide 40 MG/4 ML VIAL IVP SCH (07:29)
[2020-08-18] MEDS: Insulin LISPRO 300 UNITS/3 ML VIAL SQ SCH ×2 (07:30→11:56)
[2020-08-18] MEDS ORDERED: Cyanocobalamin (B-12) 1,000 MCG TABLET PO SCH (09:00)
[2020-08-18] MEDS ORDERED: Venlafaxine XR (24 HR) 150 MG CAP.ER.24H PO SCH (09:00)
[2020-08-18] MEDS ORDERED: BuPROPion XL (24 HR) 150 MG TABLET PO SCH (09:00)
[2020-08-18] MEDS ORDERED: Cholecalciferol (D-3) 1,000 UNIT (25MCG) TABLET PO SCH (09:00)
[2020-08-18 11:10] LABS: Basophils % 0.7 %; Eosinophils # 0.1 K/mcL (0.0-0.6); Eosinophils % 2.4 %; Hematocrit 38.8 % (35.3-44.9); Immature Granulocytes % 0.2 % (0-4); Lymphocytes # 1.5 K/mcL (0.6-4.6); Lymphocytes % 25.4 %; Mean Corpuscular HGB Conc 33.8 g/dL (31.6-35.5); Mean Corpuscular Hemoglobin 29.4 pg (28.0-33.3); Mean Corpuscular Volume 87.2 fL (83.0-100.0); Mean Platelet Volume 10.3 fL (9.4-12.4); Monocytes # 0.6 K/mcL (0.0-1.3); Monocytes % 10.5 %; Neutrophils # 3.6 K/mcL (1.6-8.9); Platelet Count 169 K/mcL (140-400); Red Blood Count 4.45 M/mcL (3.82-4.97); Red Cell Distribution Width 12.9 % (11.5-14.5); Segmented Neutrophils % 60.8 %; White Blood Count 5.8 K/mcL (4.3-11.1)
[2020-08-18 11:12] LABS: Hemoglobin 13.1 g/dL (11.5-15.4)
[2020-08-18 11:14] LABS: INR 1.4; Prothrombin Time 15.8 Seconds (9.4-12.1)
[2020-08-18 11:29] LABS: Albumin 3.7 g/dL (3.5-5.7); Bilirubin,Total 1.2 mg/dL (0.3-1.0); Calcium 9.8 mg/dL (8.6-10.3); Globulin 3.7 g/dL (2.4-3.5); Magnesium 1.6 mg/dL (1.6-2.6); Phosphorous 4.4 mg/dL (2.7-4.5); Potassium 3.5 mEq/L (3.5-5.1); Total Protein 7.4 g/dL (6.4-8.9)
[2020-08-18] MEDS ORDERED: Perflutren Lipid Microsphere 1.3 ML in 0.9 % Sodium Chloride 8.7 ML IVP PRN (11:43)
[2020-08-18 15:12] VITALS: BP 156/60
[2020-08-18] MEDS ORDERED: *HR* Warfarin 4 MG TABLET PO ONE (18:00)
[2020-08-21] MEDS ORDERED: NON-FORMULARY MEDICATION 1 EACH EACH (Alendronate Sodium [Fosamax] 70 MG) PO SCH (10:34)
== END 2020-08-18 17:30 | disposition home or self-care (01) ==
LOC: CDU 05:26 → EMEROOARM 05:26 → CDU 13:12
PROVIDERS: ADMIT Internal Medicine; ATTEND Internal Medicine

== ENCOUNTER 2020-09-05 10:26 | Inpatient (IN) ==
[2020-09-05] MEDS ORDERED: DilTIAZem 50 MG/50 ML IV.SOLN IVC SCH (10:45)
[2020-09-05 10:55] LABS: Basophils % 0.4 %; Eosinophils # 0.1 K/mcL (0.0-0.6); Eosinophils % 1.6 %; Hemoglobin 11.9 g/dL (11.5-15.4); Immature Granulocytes % 0.3 % (0-4); Lymphocytes # 1.7 K/mcL (0.6-4.6); Lymphocytes % 24.7 %; Mean Corpuscular HGB Conc 32.2 g/dL (31.6-35.5); Mean Corpuscular Hemoglobin 28.7 pg (28.0-33.3); Mean Corpuscular Volume 89.4 fL (83.0-100.0); Mean Platelet Volume 11.7 fL (9.4-12.4); Monocytes # 0.5 K/mcL (0.0-1.3); Monocytes % 7.9 %; Neutrophils # 4.4 K/mcL (1.6-8.9); Platelet Count 142 K/mcL (140-400); Red Blood Count 4.14 M/mcL (3.82-4.97); Red Cell Distribution Width 13.2 % (11.5-14.5); Segmented Neutrophils % 65.1 %; White Blood Count 6.7 K/mcL (4.3-11.1)
[2020-09-05 11:22] LABS: BUN/Creatinine Ratio 14 (6-26); Blood Urea Nitrogen 19 mg/dL (8-23); Calcium 8.9 mg/dL (8.6-10.3); Carbon Dioxide 25 mEq/L (23-29); Chloride 103 mEq/L (98-107); Glucose 197 mg/dL (70-105); Osmolality,Calculated 290 (280-300); Potassium 4.1 mEq/L (3.5-5.1); Sodium 136 mEq/L (136-145); Troponin I < 0.03 ng/mL (< 0.04); eGFR For African Americans 44 (> 60); eGFR For Non-African Americans 37 (> 60)
[2020-09-05 11:27] LABS: INR 2.1; Prothrombin Time 23.4 Seconds (9.4-12.1)
[2020-09-05] MEDS ORDERED: D5% in Water 1,000 ML IVC PRN (13:11)
[2020-09-05] MEDS ORDERED: *HR* Dextrose 50 % in Water (Vial) 50 ML VIAL IVP PRN (13:11)
[2020-09-05] MEDS ORDERED: Dextrose Gel 15 GM/37.5 ML TUBE PO PRN ×2 (13:11)
[2020-09-05] MEDS ORDERED: Naloxone 0.4 MG/ML INJ IVP PRN (13:13)
[2020-09-05] MEDS ORDERED: Acetaminophen 325 MG TABLET PO PRN (13:13)
[2020-09-05] MEDS ORDERED: Ondansetron 4 MG/2 ML VIAL IVP PRN (13:13)
[2020-09-05 13:50] LABS: Magnesium 1.8 mg/dL (1.6-2.6)
[2020-09-05 14:04] LABS: Thyroid Stimulating Hormone 0.667 mcIU/mL (0.340-5.600)
[2020-09-05] MEDS ORDERED: Nitroglycerin 0.4 MG TAB.SUBL SL PRN (16:31)
[2020-09-05] MEDS ORDERED: Warfarin perPT PO PRN (18:00)
[2020-09-05] MEDS ORDERED: *HR* Warfarin 7.5 MG TABLET PO ONE (18:00)
[2020-09-05] MEDS: Insulin LISPRO 300 UNITS/3 ML VIAL SQ SCH (18:42)
[2020-09-05] MEDS: Furosemide 20 MG/2 ML VIAL IVP SCH (18:42)
[2020-09-05] MEDS ORDERED: Insulin LISPRO 300 UNITS/3 ML VIAL SQ SCH (21:00)
[2020-09-06 01:51] LABS: Basophils % 0.4 %; Eosinophils # 0.1 K/mcL (0.0-0.6); Eosinophils % 1.6 %; Hemoglobin 11.2 g/dL (11.5-15.4); Immature Granulocytes % 0.3 % (0-4); Lymphocytes # 1.7 K/mcL (0.6-4.6); Lymphocytes % 22.6 %; Mean Corpuscular HGB Conc 32.9 g/dL (31.6-35.5); Mean Corpuscular Volume 88.1 fL (83.0-100.0); Mean Platelet Volume 11.7 fL (9.4-12.4); Monocytes # 0.5 K/mcL (0.0-1.3); Monocytes % 7.2 %; Platelet Count 130 K/mcL (140-400); Red Blood Count 3.86 M/mcL (3.82-4.97); Red Cell Distribution Width 13.2 % (11.5-14.5); Segmented Neutrophils % 67.9 %; White Blood Count 7.3 K/mcL (4.3-11.1)
[2020-09-06 01:56] LABS: INR 2.9; Prothrombin Time 32.8 Seconds (9.4-12.1)
[2020-09-06 02:08] LABS: Calcium 8.5 mg/dL (8.6-10.3); Magnesium 1.8 mg/dL (1.6-2.6)
[2020-09-06] MEDS ORDERED: Regadenoson 0.4 MG/5 ML SYRINGE IVP ONE (07:42)
[2020-09-06] MEDS: Insulin LISPRO 300 UNITS/3 ML VIAL SQ SCH ×3 (08:35→17:08)
[2020-09-06] MEDS: Furosemide 20 MG/2 ML VIAL IVP SCH (08:38)
[2020-09-06] MEDS: BuPROPion XL (24 HR) 150 MG TABLET PO SCH (08:38)
[2020-09-06] MEDS: Venlafaxine XR (24 HR) 150 MG CAP.ER.24H PO SCH (08:38)
[2020-09-06 11:18] LABS: Bilirubin,Urine Negative (Negative); Blood,Urine Negative (Negative); Clarity,Urine Clear (Clear); Color,Urine Colorless (Yellow); Glucose,Urine (UA) Normal (Normal); Ketones,Urine Negative (Negative); Leukocyte Esterase,Urine Negative (Negative); Nitrite,Urine Negative (Negative); Protein,Urine Negative (Neg-Trace); Urobilinogen,Urine Normal (Normal)
[2020-09-06] MEDS ORDERED: *HR* Warfarin 4 MG TABLET PO ONE (18:00)
[2020-09-07 05:37] LABS: Basophils % 0.5 %; Eosinophils # 0.2 K/mcL (0.0-0.6); Eosinophils % 2.7 %; Hematocrit 38.5 % (35.3-44.9); Immature Granulocytes % 0.4 % (0-4); Lymphocytes # 2.7 K/mcL (0.6-4.6); Lymphocytes % 35.4 %; Mean Corpuscular HGB Conc 33.8 g/dL (31.6-35.5); Mean Corpuscular Hemoglobin 29.3 pg (28.0-33.3); Mean Corpuscular Volume 86.9 fL (83.0-100.0); Mean Platelet Volume 11.4 fL (9.4-12.4); Monocytes # 0.6 K/mcL (0.0-1.3); Monocytes % 8.2 %; Platelet Count 159 K/mcL (140-400); Red Blood Count 4.43 M/mcL (3.82-4.97); Red Cell Distribution Width 13.2 % (11.5-14.5); Segmented Neutrophils % 52.8 %; White Blood Count 7.5 K/mcL (4.3-11.1)
[2020-09-07 05:48] LABS: INR 3.2; Prothrombin Time 36.2 Seconds (9.4-12.1)
[2020-09-07 05:58] LABS: Calcium 9.3 mg/dL (8.6-10.3)
[2020-09-07] MEDS: Insulin LISPRO 300 UNITS/3 ML VIAL SQ SCH ×2 (08:11→12:08)
[2020-09-07] MEDS: Furosemide 20 MG/2 ML VIAL IVP SCH (08:16)
[2020-09-07] MEDS: BuPROPion XL (24 HR) 150 MG TABLET PO SCH (08:17)
[2020-09-07] MEDS: Venlafaxine XR (24 HR) 150 MG CAP.ER.24H PO SCH (08:17)
[2020-09-07] MEDS ORDERED: Cholecalciferol (D-3) 1,000 UNIT (25MCG) TABLET PO SCH (09:00)
[2020-09-07] MEDS ORDERED: Cyanocobalamin (B-12) 1,000 MCG TABLET PO SCH (09:00)
[2020-09-07] MEDS ORDERED: *HR* Amiodarone 200 MG TABLET PO SCH (15:15)
[2020-09-07 16:07] VITALS: BP 131/73
== END 2020-09-07 16:45 | disposition home or self-care (01) | DRG 308 ==
LOC: EMEROOARM 10:26 → 3BNU 10:26
PROVIDERS: ADMIT Internal Medicine; ATTEND Internal Medicine

== ENCOUNTER 2020-09-16 13:03 | Inpatient (IN) ==
[2020-09-16 13:39] LABS: Basophils % 0.5 %; Eosinophils # 0.1 K/mcL (0.0-0.6); Eosinophils % 1.5 %; Hematocrit 37.8 % (35.3-44.9); Hemoglobin 12.3 g/dL (11.5-15.4); Immature Granulocytes % 0.3 % (0-4); Lymphocytes # 1.8 K/mcL (0.6-4.6); Lymphocytes % 26.7 %; Mean Corpuscular HGB Conc 32.5 g/dL (31.6-35.5); Mean Corpuscular Hemoglobin 28.8 pg (28.0-33.3); Mean Corpuscular Volume 88.5 fL (83.0-100.0); Mean Platelet Volume 10.6 fL (9.4-12.4); Monocytes # 0.4 K/mcL (0.0-1.3); Neutrophils # 4.3 K/mcL (1.6-8.9); Platelet Count 146 K/mcL (140-400); Red Blood Count 4.27 M/mcL (3.82-4.97); Red Cell Distribution Width 13.6 % (11.5-14.5); White Blood Count 6.6 K/mcL (4.3-11.1)
[2020-09-16 13:51] LABS: INR 2.3; Prothrombin Time 26.3 Seconds (9.4-12.1)
[2020-09-16 13:59] LABS: Alanine Aminotransferase 49 Units/L (7-52); Albumin 3.7 g/dL (3.5-5.7); Alkaline Phosphatase 144 Units/L (34-104); Aspartate Amino Transferase 36 Units/L (13-39); BUN/Creatinine Ratio 13 (6-26); Bilirubin,Total 0.9 mg/dL (0.3-1.0); Blood Urea Nitrogen 15 mg/dL (8-23); Calcium 8.7 mg/dL (8.6-10.3); Carbon Dioxide 24 mEq/L (23-29); Chloride 104 mEq/L (98-107); Globulin 3.6 g/dL (2.4-3.5); Glucose 188 mg/dL (70-105); Magnesium 1.7 mg/dL (1.6-2.6); Osmolality,Calculated 286 (280-300); Potassium 4.3 mEq/L (3.5-5.1); Sodium 135 mEq/L (136-145); Total Protein 7.3 g/dL (6.4-8.9); eGFR For African Americans 57 (> 60); eGFR For Non-African Americans 47 (> 60)
[2020-09-16 14:00] LABS: Troponin I < 0.03 ng/mL (< 0.04)
[2020-09-16] MEDS: DilTIAZem 50 MG/50 ML IV.SOLN IVC SCH ×2 (14:03→22:10)
[2020-09-16] MEDS ORDERED: Ondansetron 4 MG/2 ML VIAL IVP PRN (15:34)
[2020-09-16] MEDS ORDERED: *HR* Dextrose 50 % in Water (Vial) 50 ML VIAL IVP PRN (15:42)
[2020-09-16] MEDS ORDERED: Dextrose Gel 15 GM/37.5 ML TUBE PO PRN ×2 (15:42)
[2020-09-16] MEDS ORDERED: D5% in Water 1,000 ML IVC PRN (15:42)
[2020-09-16] MEDS ORDERED: Nitroglycerin 0.4 MG TAB.SUBL SL PRN (15:43)
[2020-09-16] MEDS ORDERED: Fluticasone Propionate Nasal 50 MCG/SPRAY BOTTLE NS PRN (15:43)
[2020-09-16] MEDS ORDERED: DilTIAZem 50 MG/50 ML IV.SOLN IVC SCH (16:33)
[2020-09-16] MEDS ORDERED: Warfarin perPT PO PRN (18:00)
[2020-09-16] MEDS ORDERED: *HR* Warfarin 7.5 MG TABLET PO ONE (18:00)
[2020-09-16] MEDS: Acetaminophen 325 MG TABLET PO PRN (22:47)
[2020-09-17] MEDS: *HR* Amiodarone 200 MG TABLET PO SCH ×2 (00:19→07:55)
[2020-09-17] MEDS: Insulin LISPRO 300 UNITS/3 ML VIAL SQ SCH ×4 (00:20→16:59)
[2020-09-17] MEDS: Furosemide 20 MG TABLET PO SCH ×2 (00:20→07:55)
[2020-09-17] MEDS ORDERED: Benzonatate 100 MG CAPSULE PO PRN (02:13)
[2020-09-17] MEDS ORDERED: Ipratropium 1 PUFF INHALER IH SCH (04:00)
[2020-09-17] MEDS: DilTIAZem 50 MG/50 ML IV.SOLN IVC SCH ×2 (04:20→10:52)
[2020-09-17 07:40] LABS: Basophils % 0.5 %; Eosinophils # 0.1 K/mcL (0.0-0.6); Eosinophils % 0.9 %; Hematocrit 33.2 % (35.3-44.9); Hemoglobin 10.8 g/dL (11.5-15.4); Immature Granulocytes % 0.2 % (0-4); Mean Corpuscular HGB Conc 32.5 g/dL (31.6-35.5); Mean Corpuscular Hemoglobin 28.9 pg (28.0-33.3); Mean Corpuscular Volume 88.8 fL (83.0-100.0); Mean Platelet Volume 11.2 fL (9.4-12.4); Monocytes # 0.4 K/mcL (0.0-1.3); Monocytes % 6.6 %; Platelet Count 120 K/mcL (140-400); Red Blood Count 3.74 M/mcL (3.82-4.97); Red Cell Distribution Width 13.3 % (11.5-14.5); Segmented Neutrophils % 72.8 %; White Blood Count 5.5 K/mcL (4.3-11.1)
[2020-09-17 07:52] LABS: INR 2.2; Prothrombin Time 24.6 Seconds (9.4-12.1)
[2020-09-17] MEDS: Venlafaxine XR (24 HR) 150 MG CAP.ER.24H PO SCH (07:54)
[2020-09-17] MEDS: BuPROPion XL (24 HR) 150 MG TABLET PO SCH (07:55)
[2020-09-17 07:59] LABS: Calcium 8.7 mg/dL (8.6-10.3); Magnesium 1.6 mg/dL (1.6-2.6)
[2020-09-17] MEDS: Ipratropium 1 PUFF INHALER IH SCH ×4 (08:12→21:57)
[2020-09-17 08:19] LABS: Phosphorous 3.1 mg/dL (2.7-4.5)
[2020-09-17 14:05] LABS: Hematocrit 34.9 % (35.3-44.9); Hemoglobin 11.5 g/dL (11.5-15.4)
[2020-09-17] MEDS ORDERED: *HR* Warfarin 7.5 MG TABLET PO ONE (18:00)
[2020-09-17] MEDS: Budesonide/Formoterol 80/4.5 1 PUFF INH IH SCH (21:57)
[2020-09-18] MEDS: Ipratropium 1 PUFF INHALER IH SCH ×4 (03:42→21:26)
[2020-09-18] MEDS ORDERED: predniSONE 20 MG TABLET PO SCH (09:00)
[2020-09-18] MEDS: *HR* Amiodarone 200 MG TABLET PO SCH (09:35)
[2020-09-18] MEDS: Venlafaxine XR (24 HR) 150 MG CAP.ER.24H PO SCH (09:36)
[2020-09-18] MEDS: BuPROPion XL (24 HR) 150 MG TABLET PO SCH (09:37)
[2020-09-18] MEDS: Insulin LISPRO 300 UNITS/3 ML VIAL SQ SCH ×3 (09:38→17:10)
[2020-09-18] MEDS: Furosemide 20 MG TABLET PO SCH (09:38)
[2020-09-18] MEDS: Acetaminophen 325 MG TABLET PO PRN (09:55)
[2020-09-18] MEDS: Nicotine 21 MG PATCH.TD24 TD SCH (09:55)
[2020-09-18 10:15] LABS: Basophils % 0.3 %; Hematocrit 33.7 % (35.3-44.9); Hemoglobin 11.5 g/dL (11.5-15.4); Immature Granulocytes % 0.3 % (0-4); Lymphocytes # 0.8 K/mcL (0.6-4.6); Lymphocytes % 13.7 %; Mean Corpuscular HGB Conc 34.1 g/dL (31.6-35.5); Mean Corpuscular Hemoglobin 29.5 pg (28.0-33.3); Mean Corpuscular Volume 86.4 fL (83.0-100.0); Mean Platelet Volume 11.2 fL (9.4-12.4); Monocytes # 0.6 K/mcL (0.0-1.3); Monocytes % 9.9 %; Neutrophils # 4.4 K/mcL (1.6-8.9); Platelet Count 136 K/mcL (140-400); Red Cell Distribution Width 13.2 % (11.5-14.5); Segmented Neutrophils % 75.8 %; White Blood Count 5.9 K/mcL (4.3-11.1)
[2020-09-18] MEDS: Budesonide/Formoterol 80/4.5 1 PUFF INH IH SCH ×2 (10:16→21:31)
[2020-09-18 10:19] LABS: INR 1.8
[2020-09-18 10:21] LABS: Activated Partial Thrombo Time 28.8 Seconds (26.0-36.0)
[2020-09-18 10:35] LABS: Calcium 8.3 mg/dL (8.6-10.3); Magnesium 1.7 mg/dL (1.6-2.6); Phosphorous 3.6 mg/dL (2.7-4.5); Potassium 4.4 mEq/L (3.5-5.1)
[2020-09-18] MEDS ORDERED: *HR* Warfarin 7.5 MG TABLET PO ONE (18:00)
[2020-09-18] MEDS ORDERED: Insulin DETEMIR 100 UNIT/ML X5UNITS SQ SCH (21:00)
[2020-09-18] MEDS ORDERED: 0.9 % Sodium Chloride 250 ML ONE (23:57)
[2020-09-19] MEDS: Insulin LISPRO 300 UNITS/3 ML VIAL SQ SCH ×5 (02:39→12:44)
[2020-09-19] MEDS: Ipratropium 1 PUFF INHALER IH SCH ×3 (03:39→15:16)
[2020-09-19 05:13] LABS: Basophils % 0.4 %; Eosinophils % 0.2 %; Hemoglobin 11.7 g/dL (11.5-15.4); Immature Granulocytes % 0.2 % (0-4); Lymphocytes # 1.4 K/mcL (0.6-4.6); Lymphocytes % 27.1 %; Mean Corpuscular HGB Conc 33.4 g/dL (31.6-35.5); Mean Corpuscular Hemoglobin 29.1 pg (28.0-33.3); Mean Corpuscular Volume 87.1 fL (83.0-100.0); Mean Platelet Volume 11.2 fL (9.4-12.4); Monocytes # 0.4 K/mcL (0.0-1.3); Monocytes % 7.6 %; Neutrophils # 3.3 K/mcL (1.6-8.9); Platelet Count 146 K/mcL (140-400); Red Blood Count 4.02 M/mcL (3.82-4.97); Red Cell Distribution Width 13.2 % (11.5-14.5); Segmented Neutrophils % 64.5 %; White Blood Count 5.1 K/mcL (4.3-11.1)
[2020-09-19 05:29] LABS: INR 1.9; Prothrombin Time 21.4 Seconds (9.4-12.1)
[2020-09-19 05:30] LABS: Magnesium 1.9 mg/dL (1.6-2.6); Phosphorous 2.4 mg/dL (2.7-4.5)
[2020-09-19 05:32] LABS: Calcium 8.7 mg/dL (8.6-10.3); Potassium 3.6 mEq/L (3.5-5.1)
[2020-09-19 05:35] LABS: C-Reactive Protein 70 mg/L (Less than 10); Lactate Dehydrogenase 233 Units/L (140-271)
[2020-09-19 05:47] LABS: Ferritin 130 ng/mL (10-120)
[2020-09-19] MEDS: *HR* Amiodarone 200 MG TABLET PO SCH (08:20)
[2020-09-19] MEDS: Furosemide 20 MG TABLET PO SCH (08:20)
[2020-09-19] MEDS: BuPROPion XL (24 HR) 150 MG TABLET PO SCH (08:22)
[2020-09-19] MEDS: Nicotine 21 MG PATCH.TD24 TD SCH (08:24)
[2020-09-19] MEDS: Venlafaxine XR (24 HR) 150 MG CAP.ER.24H PO SCH (08:24)
[2020-09-19] MEDS ORDERED: Dexamethasone 4 MG/ML VIAL IVP SCH (09:00)
[2020-09-19 10:28] VITALS: BP 142/79
[2020-09-19] MEDS: Budesonide/Formoterol 80/4.5 1 PUFF INH IH SCH (11:02)
[2020-09-19] MEDS ORDERED: *HR* Warfarin 7.5 MG TABLET PO ONE (18:00)
== END 2020-09-19 16:45 | disposition home health service (06) | DRG 178 ==
LOC: EMEROOARM 13:03 → 2NENU 13:03 → SUATTDRO 17:42 → 2NENU 18:21
PROVIDERS: ADMIT Internal Medicine; ATTEND Internal Medicine

== ENCOUNTER 2020-09-22 19:32 | Inpatient (IN) ==
[2020-09-22] MEDS ORDERED: Ondansetron 4 MG/2 ML VIAL IVP ONE (20:09)
[2020-09-22] MEDS ORDERED: 0.9 % Sodium Chloride 1,000 ML IVC ONE ×2 (20:09→21:45)
[2020-09-22 20:27] LABS: Basophils % 0.4 %; Hematocrit 43.8 % (35.3-44.9); Immature Granulocytes % 0.2 % (0-4); Lymphocytes # 1.3 K/mcL (0.6-4.6); Lymphocytes % 25.4 %; Mean Corpuscular HGB Conc 33.1 g/dL (31.6-35.5); Mean Corpuscular Hemoglobin 29.4 pg (28.0-33.3); Mean Corpuscular Volume 88.7 fL (83.0-100.0); Mean Platelet Volume 10.2 fL (9.4-12.4); Monocytes # 0.4 K/mcL (0.0-1.3); Monocytes % 7.1 %; Neutrophils # 3.3 K/mcL (1.6-8.9); Platelet Count 235 K/mcL (140-400); Red Blood Count 4.94 M/mcL (3.82-4.97); Red Cell Distribution Width 13.5 % (11.5-14.5); Segmented Neutrophils % 66.9 %
[2020-09-22 20:28] LABS: Hemoglobin 14.5 g/dL (11.5-15.4)
[2020-09-22 20:38] LABS: Activated Partial Thrombo Time 37.9 Seconds (26.0-36.0); INR 2.2; Prothrombin Time 25.3 Seconds (9.4-12.1)
[2020-09-22 20:53] LABS: Albumin 3.7 g/dL (3.5-5.7); Albumin/Globulin Ratio 0.9 (1.1-2.2); Bilirubin,Total 0.8 mg/dL (0.3-1.0); Calcium 8.8 mg/dL (8.6-10.3); Globulin 4.3 g/dL (2.4-3.5); Potassium 4.3 mEq/L (3.5-5.1); Troponin I 0.04 ng/mL (< 0.04)
[2020-09-22] MEDS ORDERED: *HR* Metoprolol 5 MG/5 ML VIAL IVP STA (21:47)
[2020-09-22] MEDS ORDERED: Acetaminophen 325 MG TABLET PO PRN (21:55)
[2020-09-22] MEDS ORDERED: Ondansetron 4 MG/2 ML VIAL IVP PRN (21:55)
[2020-09-22] MEDS ORDERED: Dextrose Gel 15 GM/37.5 ML TUBE PO PRN ×2 (23:55)
[2020-09-22] MEDS ORDERED: *HR* Dextrose 50 % in Water (Vial) 50 ML VIAL IVP PRN (23:55)
[2020-09-22] MEDS ORDERED: D5% in Water 1,000 ML IVC PRN (23:55)
[2020-09-23] MEDS ORDERED: *HR* Metoprolol 5 MG/5 ML VIAL IVP PRN
[2020-09-23 04:00] LABS: Hematocrit 39.1 % (35.3-44.9); Mean Corpuscular HGB Conc 31.7 g/dL (31.6-35.5); Mean Corpuscular Volume 91.4 fL (83.0-100.0); Mean Platelet Volume 10.3 fL (9.4-12.4); Platelet Count 185 K/mcL (140-400); Red Blood Count 4.28 M/mcL (3.82-4.97); Red Cell Distribution Width 13.6 % (11.5-14.5); White Blood Count 6.6 K/mcL (4.3-11.1)
[2020-09-23] MEDS ORDERED: Ipratropium/Albuterol Neb 3 ML AER PRN (04:00)
[2020-09-23 04:01] LABS: Hemoglobin 12.4 g/dL (11.5-15.4)
[2020-09-23 04:19] LABS: Calcium 7.7 mg/dL (8.6-10.3); Magnesium 1.8 mg/dL (1.6-2.6); Potassium 4.2 mEq/L (3.5-5.1)
[2020-09-23] MEDS: Budesonide/Formoterol 80/4.5 1 PUFF INH IH SCH ×2 (08:28→20:02)
[2020-09-23] MEDS: *HR* Amiodarone 200 MG TABLET PO SCH (09:36)
[2020-09-23] MEDS: Venlafaxine XR (24 HR) 150 MG CAP.ER.24H PO SCH (09:36)
[2020-09-23] MEDS: Dexamethasone 4 MG/ML VIAL IVP SCH (14:43)
[2020-09-23 17:12] LABS: INR 2.4; Prothrombin Time 27.3 Seconds (9.4-12.1)
[2020-09-23] MEDS ORDERED: *HR* Warfarin 4 MG TABLET PO ONE (18:00)
[2020-09-23] MEDS ORDERED: *HR* Warfarin 7.5 MG TABLET PO SCH (18:00)
[2020-09-23] MEDS ORDERED: *HR* Warfarin 5 MG TABLET PO ONE (18:00)
[2020-09-23] MEDS ORDERED: Warfarin perPT PO PRN (18:00)
[2020-09-24 04:42] LABS: INR 2.5; Prothrombin Time 28.6 Seconds (9.4-12.1)
[2020-09-24 04:49] LABS: Hematocrit 36.8 % (35.3-44.9); Hemoglobin 12.5 g/dL (11.5-15.4); Mean Corpuscular Hemoglobin 29.6 pg (28.0-33.3); Mean Corpuscular Volume 87.2 fL (83.0-100.0); Platelet Count 209 K/mcL (140-400); Red Blood Count 4.22 M/mcL (3.82-4.97); Red Cell Distribution Width 13.1 % (11.5-14.5); White Blood Count 3.6 K/mcL (4.3-11.1)
[2020-09-24 04:55] LABS: BUN/Creatinine Ratio 26 (6-26); Blood Urea Nitrogen 27 mg/dL (8-23); Calcium 8.6 mg/dL (8.6-10.3); Carbon Dioxide 22 mEq/L (23-29); Chloride 105 mEq/L (98-107); Glucose 239 mg/dL (70-105); Magnesium 1.8 mg/dL (1.6-2.6); Osmolality,Calculated 289 (280-300); Potassium 4.7 mEq/L (3.5-5.1); Sodium 133 mEq/L (136-145); eGFR For African Americans > 60 (> 60); eGFR For Non-African Americans 51 (> 60)
[2020-09-24] MEDS: Budesonide/Formoterol 80/4.5 1 PUFF INH IH SCH ×2 (08:00→19:42)
[2020-09-24] MEDS: *HR* Amiodarone 200 MG TABLET PO SCH (08:26)
[2020-09-24] MEDS: Dexamethasone 4 MG/ML VIAL IVP SCH (08:27)
[2020-09-24] MEDS: Doxycycline 100 MG in 0.9 % Sodium Chloride Mini Bag 100 ML IVPB SCH ×2 (11:26→22:43)
[2020-09-24] MEDS: Insulin LISPRO 300 UNITS/3 ML VIAL SQ SCH ×2 (16:50→22:45)
[2020-09-24] MEDS: Insulin DETEMIR 100 UNIT/ML X5UNITS SQ SCH (16:50)
[2020-09-24] MEDS ORDERED: *HR* Warfarin 5 MG TABLET PO ONE (18:00)
[2020-09-25 06:38] LABS: Hematocrit 35.4 % (35.3-44.9); Hemoglobin 11.8 g/dL (11.5-15.4); Mean Corpuscular HGB Conc 33.3 g/dL (31.6-35.5); Mean Corpuscular Hemoglobin 28.8 pg (28.0-33.3); Mean Corpuscular Volume 86.3 fL (83.0-100.0); Mean Platelet Volume 10.1 fL (9.4-12.4); Platelet Count 262 K/mcL (140-400); Red Cell Distribution Width 13.2 % (11.5-14.5)
[2020-09-25 06:41] LABS: White Blood Count 8.8 K/mcL (4.3-11.1)
[2020-09-25 06:43] LABS: INR 4.1
[2020-09-25 06:45] LABS: Prothrombin Time 45.6 Seconds (9.4-12.1)
[2020-09-25 06:56] LABS: BUN/Creatinine Ratio 24 (6-26); Blood Urea Nitrogen 23 mg/dL (8-23); Calcium 9.2 mg/dL (8.6-10.3); Carbon Dioxide 23 mEq/L (23-29); Chloride 106 mEq/L (98-107); Glucose 103 mg/dL (70-105); Osmolality,Calculated 286 (280-300); Potassium 4.2 mEq/L (3.5-5.1); Sodium 136 mEq/L (136-145); eGFR For African Americans > 60 (> 60); eGFR For Non-African Americans 56 (> 60)
[2020-09-25] MEDS: Insulin LISPRO 300 UNITS/3 ML VIAL SQ SCH ×4 (07:42→21:20)
[2020-09-25] MEDS: Budesonide/Formoterol 80/4.5 1 PUFF INH IH SCH ×2 (07:55→20:01)
[2020-09-25] MEDS: Dexamethasone 4 MG/ML VIAL IVP SCH (08:09)
[2020-09-25] MEDS: *HR* Amiodarone 200 MG TABLET PO SCH (08:10)
[2020-09-25] MEDS: Furosemide 20 MG TABLET PO SCH (08:10)
[2020-09-25] MEDS: Insulin DETEMIR 100 UNIT/ML X5UNITS SQ SCH (08:11)
[2020-09-25] MEDS: Doxycycline 100 MG in 0.9 % Sodium Chloride Mini Bag 100 ML IVPB SCH ×2 (08:12→20:51)
[2020-09-26] MEDS: Budesonide/Formoterol 80/4.5 1 PUFF INH IH SCH ×2 (07:45→19:57)
[2020-09-26] MEDS: Insulin LISPRO 300 UNITS/3 ML VIAL SQ SCH ×4 (08:10→19:54)
[2020-09-26] MEDS: Dexamethasone 4 MG/ML VIAL IVP SCH (09:19)
[2020-09-26] MEDS: Furosemide 20 MG TABLET PO SCH (09:20)
[2020-09-26] MEDS: Insulin DETEMIR 100 UNIT/ML X5UNITS SQ SCH (09:20)
[2020-09-26] MEDS: *HR* Amiodarone 200 MG TABLET PO SCH (09:20)
[2020-09-26] MEDS: Doxycycline 100 MG in 0.9 % Sodium Chloride Mini Bag 100 ML IVPB SCH (09:20)
[2020-09-26 12:22] LABS: Hematocrit 42.3 % (35.3-44.9); Mean Corpuscular HGB Conc 33.3 g/dL (31.6-35.5); Mean Corpuscular Hemoglobin 29.1 pg (28.0-33.3); Mean Corpuscular Volume 87.2 fL (83.0-100.0); Mean Platelet Volume 10.1 fL (9.4-12.4); Platelet Count 349 K/mcL (140-400); Red Blood Count 4.85 M/mcL (3.82-4.97); Red Cell Distribution Width 13.3 % (11.5-14.5); White Blood Count 9.3 K/mcL (4.3-11.1)
[2020-09-26 12:28] LABS: INR 2.7; Prothrombin Time 30.1 Seconds (9.4-12.1)
[2020-09-26 12:38] LABS: Calcium 9.5 mg/dL (8.6-10.3); Magnesium 1.4 mg/dL (1.6-2.6); Potassium 3.7 mEq/L (3.5-5.1)
[2020-09-26 14:18] LABS: Hemoglobin 14.1 g/dL (11.5-15.4)
[2020-09-26] MEDS ORDERED: *HR* Warfarin 2.5 MG TABLET PO ONE (18:00)
[2020-09-26] MEDS: Doxycycline 100 MG CAPSULE PO SCH (19:36)
[2020-09-27 01:51] LABS: Hematocrit 39.9 % (35.3-44.9); Hemoglobin 13.4 g/dL (11.5-15.4); Mean Corpuscular HGB Conc 33.6 g/dL (31.6-35.5); Mean Corpuscular Volume 86.4 fL (83.0-100.0); Platelet Count 321 K/mcL (140-400); Red Blood Count 4.62 M/mcL (3.82-4.97); Red Cell Distribution Width 13.2 % (11.5-14.5); White Blood Count 7.4 K/mcL (4.3-11.1)
[2020-09-27 01:54] LABS: Prothrombin Time 23.1 Seconds (9.4-12.1)
[2020-09-27 02:08] LABS: BUN/Creatinine Ratio 32 (6-26); Blood Urea Nitrogen 32 mg/dL (8-23); Calcium 9.3 mg/dL (8.6-10.3); Carbon Dioxide 25 mEq/L (23-29); Chloride 100 mEq/L (98-107); Glucose 151 mg/dL (70-105); Osmolality,Calculated 288 (280-300); Potassium 3.9 mEq/L (3.5-5.1); Sodium 134 mEq/L (136-145); eGFR For African Americans > 60 (> 60); eGFR For Non-African Americans 53 (> 60)
[2020-09-27 07:53] VITALS: BP 138/65
[2020-09-27] MEDS: Insulin LISPRO 300 UNITS/3 ML VIAL SQ SCH ×2 (07:53→13:26)
[2020-09-27] MEDS: Budesonide/Formoterol 80/4.5 1 PUFF INH IH SCH (08:09)
[2020-09-27] MEDS: Doxycycline 100 MG CAPSULE PO SCH (08:16)
[2020-09-27] MEDS: Venlafaxine XR (24 HR) 150 MG CAP.ER.24H PO SCH (08:16)
[2020-09-27] MEDS: *HR* Amiodarone 200 MG TABLET PO SCH (08:17)
[2020-09-27] MEDS: Dexamethasone 4 MG/ML VIAL IVP SCH (08:17)
[2020-09-27] MEDS: Insulin DETEMIR 100 UNIT/ML X5UNITS SQ SCH (08:19)
[2020-09-27] MEDS ORDERED: *HR* Warfarin 2.5 MG TABLET PO ONE (18:00)
== END 2020-09-27 15:44 | disposition home health service (06) | DRG 177 ==
LOC: EMEROOARM 19:32 → 2NENU 19:32 → SUATTDRO 22:11 → 2NENU 23:25
PROVIDERS: ADMIT Internal Medicine; ATTEND Internal Medicine

== ENCOUNTER 2020-09-29 11:17 | Observation (INO) ==
[2020-09-29] MEDS ORDERED: 0.9 % Sodium Chloride 1,000 ML IVC ONE ×2 (11:22→12:06)
[2020-09-29 11:50] LABS: ABG Base Excess 0 mEq/L (-2 to 3); ABG HCO3 24 mEq/L (21-27); ABG Oxygen Saturation 100 % (95-98); ABG PCO2 34 mmHg (35-45); ABG PH 7.44 pH Units (7.32-7.45); ABG PO2 245 mmHg (85-104); ABG TCO2 25 mEq/L (20-26)
[2020-09-29] MEDS ORDERED: Amiodarone Premix 360 MG/200 ML BAG IVC ONE (12:06)
[2020-09-29 12:08] LABS: Basophils % 0.2 %; Eosinophils % 0.5 %; Hematocrit 46.6 % (35.3-44.9); Immature Granulocytes % 0.2 % (0-4); Lymphocytes # 1.6 K/mcL (0.6-4.6); Lymphocytes % 19.2 %; Mean Corpuscular HGB Conc 32.4 g/dL (31.6-35.5); Mean Corpuscular Volume 89.4 fL (83.0-100.0); Mean Platelet Volume 9.7 fL (9.4-12.4); Monocytes # 0.7 K/mcL (0.0-1.3); Neutrophils # 5.8 K/mcL (1.6-8.9); Platelet Count 330 K/mcL (140-400); Red Blood Count 5.21 M/mcL (3.82-4.97); Red Cell Distribution Width 13.6 % (11.5-14.5); Segmented Neutrophils % 71.9 %; White Blood Count 8.1 K/mcL (4.3-11.1)
[2020-09-29 12:10] LABS: Hemoglobin 15.1 g/dL (11.5-15.4)
[2020-09-29 12:13] LABS: Bacteria,Urine Few per hpf (None-Few); Bilirubin,Urine Negative (Negative); Blood,Urine Small (Negative); Clarity,Urine Ex.Turbid (Clear); Color,Urine Yellow (Yellow); Glucose,Urine (UA) Normal (Normal); Ketones,Urine Negative (Negative); Leukocyte Esterase,Urine Negative (Negative); Mucus,Urine Few per lpf (None-Few); Nitrite,Urine Negative (Negative); PH,Urine 5.5 pH Units (5.0-8.0); Protein,Urine 30 mg/dL (Neg-Trace); Specific Gravity,Urine 1.027 (1.010-1.025); Squamous Epithelial Cell,Urine Many per hpf (None-Few); Transitional Epi Cells,Urine Few per hpf (None-Few); Urobilinogen,Urine Normal (Normal); WBC,Urine 0-3 per hpf (0-3)
[2020-09-29 12:15] LABS: INR 1.4; Prothrombin Time 15.5 Seconds (9.4-12.1)
[2020-09-29 12:16] LABS: VBG HCO3 24 mEq/L (21-27); VBG PCO2 44 mmHg (41-51); VBG PH 7.35 pH Units (7.32-7.42); VBG PO2 66 mmHg (25-50)
[2020-09-29 12:18] LABS: Activated Partial Thrombo Time 21.5 Seconds (26.0-36.0)
[2020-09-29 12:33] LABS: Alanine Aminotransferase 26 Units/L (7-52); Albumin 3.4 g/dL (3.5-5.7); Albumin/Globulin Ratio 0.9 (1.1-2.2); Alkaline Phosphatase 108 Units/L (34-104); Aspartate Amino Transferase 27 Units/L (13-39); BUN/Creatinine Ratio 33 (6-26); Bilirubin,Direct 0.2 mg/dL (0.0-0.2); Bilirubin,Indirect 0.6 mg/dL (0.0-1.0); Bilirubin,Total 0.8 mg/dL (0.3-1.0); Blood Urea Nitrogen 47 mg/dL (8-23); Calcium 8.6 mg/dL (8.6-10.3); Carbon Dioxide 22 mEq/L (23-29); Chloride 99 mEq/L (98-107); Creatine Kinase 20 Units/L (30-223); Glucose 215 mg/dL (70-105); Lipase 40 Units/L (11-82); Magnesium 1.8 mg/dL (1.6-2.6); Osmolality,Calculated 295 (280-300); Phosphorous 4.3 mg/dL (2.7-4.5); Potassium 4.5 mEq/L (3.5-5.1); Sodium 133 mEq/L (136-145); Total Protein 7.4 g/dL (6.4-8.9); Troponin I < 0.03 ng/mL (< 0.04); eGFR For African Americans 44 (> 60); eGFR For Non-African Americans 36 (> 60)
[2020-09-29] MEDS ORDERED: Calcium Gluconate 1gm/50mL 1 GM/50 ML BAG IVPB ONE (12:42)
[2020-09-29 12:46] LABS: Thyroid Stimulating Hormone 1.394 mcIU/mL (0.340-5.600)
[2020-09-29] MEDS ORDERED: Acetaminophen 325 MG TABLET PO PRN (13:32)
[2020-09-29] MEDS ORDERED: Ondansetron 4 MG/2 ML VIAL IVP PRN (13:32)
[2020-09-29] MEDS ORDERED: Naloxone 0.4 MG/ML INJ IVP PRN (13:32)
[2020-09-29] MEDS ORDERED: *HR* HYDROcodone/Acet 5/325 mg TABLET PO PRN (13:32)
[2020-09-29] MEDS: Ipratropium 1 PUFF INHALER IH SCH ×2 (15:56→19:28)
[2020-09-29] MEDS ORDERED: Benzonatate 100 MG CAPSULE PO PRN (16:20)
[2020-09-29] MEDS ORDERED: D5% in Water 1,000 ML IVC PRN (16:32)
[2020-09-29] MEDS ORDERED: *HR* Dextrose 50 % in Water (Vial) 50 ML VIAL IVP PRN (16:32)
[2020-09-29] MEDS ORDERED: Dextrose Gel 15 GM/37.5 ML TUBE PO PRN ×2 (16:32)
[2020-09-29] MEDS ORDERED: Amiodarone Premix 360 MG/200 ML BAG IVC SCH (18:00)
[2020-09-29] MEDS ORDERED: *HR* Warfarin 5 MG TABLET PO ONE (18:00)
[2020-09-29] MEDS ORDERED: Warfarin perPT PO PRN (18:00)
[2020-09-29] MEDS: Dexamethasone 4 MG/ML VIAL IVP SCH (18:31)
[2020-09-29] MEDS: Budesonide/Formoterol 160/4.5 1 PUFF INH IH SCH (19:27)
[2020-09-29] MEDS: Doxycycline 100 MG CAPSULE PO SCH (20:05)
[2020-09-29 22:19] LABS: C-Reactive Protein 17 mg/L (Less than 10); Lactate Dehydrogenase 179 Units/L (140-271)
[2020-09-29 22:38] LABS: Ferritin 225 ng/mL (10-120)
[2020-09-30] MEDS: Ipratropium 1 PUFF INHALER IH SCH ×3 (03:24→16:05)
[2020-09-30 05:18] VITALS: BP 123/84
[2020-09-30 05:49] LABS: Basophils % 0.3 %; Hematocrit 37.3 % (35.3-44.9); Lymphocytes # 0.6 K/mcL (0.6-4.6); Lymphocytes % 16.1 %; Mean Corpuscular Hemoglobin 28.4 pg (28.0-33.3); Mean Corpuscular Volume 86.1 fL (83.0-100.0); Mean Platelet Volume 10.1 fL (9.4-12.4); Monocytes # 0.2 K/mcL (0.0-1.3); Monocytes % 5.2 %; Platelet Count 260 K/mcL (140-400); Red Blood Count 4.33 M/mcL (3.82-4.97); Red Cell Distribution Width 13.3 % (11.5-14.5); Segmented Neutrophils % 78.4 %
[2020-09-30 05:52] LABS: White Blood Count 3.8 K/mcL (4.3-11.1)
[2020-09-30 05:53] LABS: Hemoglobin 12.3 g/dL (11.5-15.4)
[2020-09-30 06:01] LABS: INR 1.4; Prothrombin Time 16.4 Seconds (9.4-12.1)
[2020-09-30 06:03] LABS: Activated Partial Thrombo Time 24.3 Seconds (26.0-36.0)
[2020-09-30 06:39] LABS: BUN/Creatinine Ratio 35 (6-26); Blood Urea Nitrogen 35 mg/dL (8-23); Calcium 8.1 mg/dL (8.6-10.3); Carbon Dioxide 19 mEq/L (23-29); Chloride 105 mEq/L (98-107); Glucose 313 mg/dL (70-105); Magnesium 1.7 mg/dL (1.6-2.6); Osmolality,Calculated 294 (280-300); Phosphorous 2.5 mg/dL (2.7-4.5); Potassium 4.6 mEq/L (3.5-5.1); Sodium 132 mEq/L (136-145); eGFR For African Americans > 60 (> 60); eGFR For Non-African Americans 54 (> 60)
[2020-09-30] MEDS: Budesonide/Formoterol 160/4.5 1 PUFF INH IH SCH (07:41)
[2020-09-30] MEDS ORDERED: BuPROPion XL (24 HR) 150 MG TABLET PO SCH (09:00)
[2020-09-30] MEDS ORDERED: Venlafaxine XR (24 HR) 150 MG CAP.ER.24H PO SCH (09:00)
[2020-09-30] MEDS ORDERED: Nicotine 14 MG PATCH.TD24 TD SCH (09:00)
[2020-09-30] MEDS ORDERED: *HR* Amiodarone 200 MG TABLET PO SCH (09:00)
[2020-09-30] MEDS ORDERED: Furosemide 20 MG TABLET PO SCH (09:00)
[2020-09-30] MEDS: Insulin LISPRO 300 UNITS/3 ML VIAL SQ SCH ×3 (09:39→16:27)
[2020-09-30] MEDS: Doxycycline 100 MG CAPSULE PO SCH (09:43)
[2020-09-30] MEDS: Dexamethasone 4 MG/ML VIAL IVP SCH (09:47)
[2020-09-30] MEDS ORDERED: *HR* Warfarin 5 MG TABLET PO ONE (18:00)
== END 2020-09-30 18:34 ==
LOC: SUATTDRO → 2NENU 11:17 → EMEROOARM 11:17 → SUATTDRO 15:36 → 2NENU 15:57
PROVIDERS: ADMIT Internal Medicine; ATTEND Internal Medicine

== ENCOUNTER 2020-11-10 15:43 | Inpatient (IN) ==
[2020-11-10] MEDS ORDERED: Isovue-370 500 ML BOTTLE IVP ONE (16:18)
[2020-11-10] MEDS ORDERED: *HR* Metoprolol 5 MG/5 ML VIAL IVP ONE ×3 (16:22→18:02)
[2020-11-10] MEDS ORDERED: 0.9 % Sodium Chloride 1,000 ML IVC ONE (16:25)
[2020-11-10 16:41] LABS: Basophils % 0.5 %; Eosinophils # 0.2 K/mcL (0.0-0.6); Eosinophils % 1.7 %; Hematocrit 40.5 % (35.3-44.9); Hemoglobin 13.2 g/dL (11.5-15.4); Immature Granulocytes % 0.3 % (0-4); Lymphocytes # 1.9 K/mcL (0.6-4.6); Lymphocytes % 21.8 %; Mean Corpuscular HGB Conc 32.6 g/dL (31.6-35.5); Mean Corpuscular Hemoglobin 28.9 pg (28.0-33.3); Mean Corpuscular Volume 88.8 fL (83.0-100.0); Mean Platelet Volume 10.9 fL (9.4-12.4); Monocytes # 0.8 K/mcL (0.0-1.3); Monocytes % 9.3 %; Neutrophils # 5.8 K/mcL (1.6-8.9); Platelet Count 215 K/mcL (140-400); Red Blood Count 4.56 M/mcL (3.82-4.97); Red Cell Distribution Width 14.8 % (11.5-14.5); Segmented Neutrophils % 66.4 %; White Blood Count 8.8 K/mcL (4.3-11.1)
[2020-11-10 16:45] LABS: INR 1.2; Prothrombin Time 13.4 Seconds (9.4-12.1)
[2020-11-10 17:06] LABS: BUN/Creatinine Ratio 13 (6-26); Blood Urea Nitrogen 16 mg/dL (8-23); Calcium 9.5 mg/dL (8.6-10.3); Carbon Dioxide 25 mEq/L (23-29); Chloride 99 mEq/L (98-107); Glucose 202 mg/dL (70-105); Magnesium 1.8 mg/dL (1.6-2.6); Osmolality,Calculated 283 (280-300); Potassium 4.7 mEq/L (3.5-5.1); Sodium 133 mEq/L (136-145); Troponin I < 0.03 ng/mL (< 0.04); eGFR For African Americans 53 (> 60); eGFR For Non-African Americans 44 (> 60)
[2020-11-10 17:11] LABS: Thyroid Stimulating Hormone 0.326 mcIU/mL (0.340-5.600)
[2020-11-10] MEDS ORDERED: *HR* Enoxaparin 60 MG/0.6 ML SYRINGE SQ STA (18:07)
[2020-11-10] MEDS ORDERED: Naloxone 0.4 MG/ML INJ IVP PRN (19:08)
[2020-11-10] MEDS ORDERED: Acetaminophen 325 MG TABLET PO PRN (19:08)
[2020-11-10] MEDS ORDERED: Ipratropium/Albuterol Neb 3 ML IH PRN (19:38)
[2020-11-10] MEDS ORDERED: Warfarin perPT PO PRN (19:40)
[2020-11-10] MEDS ORDERED: *HR* Dextrose 50 % in Water (Vial) 50 ML VIAL IVP PRN (19:47)
[2020-11-10] MEDS ORDERED: D5% in Water 1,000 ML IVC PRN (19:47)
[2020-11-10] MEDS ORDERED: Dextrose Gel 15 GM/37.5 ML TUBE PO PRN ×2 (19:47)
[2020-11-10] MEDS ORDERED: *HR* Warfarin 7.5 MG TABLET PO ONE (19:58)
[2020-11-10 20:08] LABS: Estimated Average Glucose 194 mg/dl; Hemoglobin A1C 8.4 %
[2020-11-10] MEDS: Insulin LISPRO 300 UNITS/3 ML VIAL SUBQ SCH (20:36)
[2020-11-10] MEDS: Magnesium Oxide 400 MG TABLET PO SCH (20:44)
[2020-11-10] MEDS: Budesonide/Formoterol 80/4.5 1 PUFF INH IH SCH (22:53)
[2020-11-10] MEDS ORDERED: Furosemide 20 MG/2 ML VIAL IVP ONE (23:07)
[2020-11-11 05:08] LABS: Basophils # 0.1 K/mcL (0.0-0.2); Basophils % 0.6 %; Eosinophils # 0.1 K/mcL (0.0-0.6); Eosinophils % 1.4 %; Hematocrit 36.2 % (35.3-44.9); Immature Granulocytes % 0.3 % (0-4); Lymphocytes # 1.7 K/mcL (0.6-4.6); Lymphocytes % 19.9 %; Mean Corpuscular HGB Conc 33.1 g/dL (31.6-35.5); Mean Corpuscular Hemoglobin 29.7 pg (28.0-33.3); Mean Corpuscular Volume 89.6 fL (83.0-100.0); Monocytes # 0.7 K/mcL (0.0-1.3); Monocytes % 8.3 %; Platelet Count 165 K/mcL (140-400); Red Blood Count 4.04 M/mcL (3.82-4.97); Red Cell Distribution Width 14.7 % (11.5-14.5); Segmented Neutrophils % 69.5 %; White Blood Count 8.6 K/mcL (4.3-11.1)
[2020-11-11 05:16] LABS: INR 1.2; Prothrombin Time 13.8 Seconds (9.4-12.1)
[2020-11-11 05:25] LABS: Albumin 3.5 g/dL (3.5-5.7); Albumin/Globulin Ratio 1.1 (1.1-2.2); Bilirubin,Total 1.3 mg/dL (0.3-1.0); Calcium 8.9 mg/dL (8.6-10.3); Globulin 3.3 g/dL (2.4-3.5); Potassium 4.4 mEq/L (3.5-5.1); Total Protein 6.8 g/dL (6.4-8.9)
[2020-11-11] MEDS: *HR* Metoprolol 5 MG/5 ML VIAL IVP PRN (06:39)
[2020-11-11] MEDS: Insulin LISPRO 300 UNITS/3 ML VIAL SUBQ SCH ×4 (08:39→21:04)
[2020-11-11] MEDS: BuPROPion XL (24 HR) 150 MG TABLET PO SCH (08:40)
[2020-11-11] MEDS: Magnesium Oxide 400 MG TABLET PO SCH ×2 (08:40→21:12)
[2020-11-11] MEDS: Venlafaxine XR (24 HR) 150 MG CAP.ER.24H PO SCH (08:40)
[2020-11-11] MEDS ORDERED: Aspirin 81 MG TAB.CHEW PO SCH (09:00)
[2020-11-11] MEDS ORDERED: Furosemide 20 MG TABLET PO SCH ×2 (09:00→21:00)
[2020-11-11 09:36] LABS: Triiodothyronine (T3) Total 0.54 ng/mL (0.87-1.78)
[2020-11-11] MEDS ORDERED: Ondansetron ODT 4 MG TAB.RAPDIS SL PRN (09:59)
[2020-11-11] MEDS ORDERED: *HR* Digoxin 0.5 MG/2 ML AMPUL IVP ONE (11:03)
[2020-11-11] MEDS: Budesonide/Formoterol 80/4.5 1 PUFF INH IH SCH ×2 (11:25→23:02)
[2020-11-11] MEDS: *HR* Enoxaparin 60 MG/0.6 ML SYRINGE SQ SCH ×2 (12:56→18:03)
[2020-11-11] MEDS ORDERED: *HR* Warfarin 7.5 MG TABLET PO ONE (18:00)
[2020-11-11] MEDS: Furosemide 20 MG/2 ML VIAL IVP SCH (18:02)
[2020-11-11] MEDS: *HR* Digoxin 0.5 MG/2 ML AMPUL IVP SCH (21:11)
[2020-11-12] MEDS: *HR* Digoxin 0.5 MG/2 ML AMPUL IVP SCH (01:30)
[2020-11-12] MEDS: *HR* Enoxaparin 60 MG/0.6 ML SYRINGE SQ SCH ×2 (05:27→17:02)
[2020-11-12 08:35] LABS: INR 1.5; Prothrombin Time 16.7 Seconds (9.4-12.1)
[2020-11-12 08:49] LABS: Magnesium 1.8 mg/dL (1.6-2.6); Phosphorous 3.7 mg/dL (2.7-4.5); Potassium 3.6 mEq/L (3.5-5.1)
[2020-11-12] MEDS: Insulin LISPRO 300 UNITS/3 ML VIAL SUBQ SCH ×4 (10:12→21:04)
[2020-11-12] MEDS: BuPROPion XL (24 HR) 150 MG TABLET PO SCH (10:23)
[2020-11-12] MEDS: Furosemide 20 MG/2 ML VIAL IVP SCH ×2 (10:23→17:01)
[2020-11-12] MEDS: Magnesium Oxide 400 MG TABLET PO SCH ×2 (10:23→21:16)
[2020-11-12] MEDS: Venlafaxine XR (24 HR) 150 MG CAP.ER.24H PO SCH (10:23)
[2020-11-12] MEDS: *HR* Digoxin 0.125 MG TABLET PO SCH (10:24)
[2020-11-12] MEDS: Budesonide/Formoterol 80/4.5 1 PUFF INH IH SCH ×2 (11:16→21:03)
[2020-11-12] MEDS ORDERED: *HR* Warfarin 7.5 MG TABLET PO ONE (18:00)
[2020-11-13 01:58] LABS: INR 1.8
[2020-11-13 02:15] LABS: Albumin 3.3 g/dL (3.5-5.7); Bilirubin,Direct 0.2 mg/dL (0.0-0.2); Bilirubin,Indirect 0.6 mg/dL (0.0-1.0); Bilirubin,Total 0.8 mg/dL (0.3-1.0); Globulin 3.4 g/dL (2.4-3.5); Total Protein 6.7 g/dL (6.4-8.9)
[2020-11-13 02:16] LABS: Calcium 8.9 mg/dL (8.6-10.3); Magnesium 1.8 mg/dL (1.6-2.6); Potassium 4.3 mEq/L (3.5-5.1)
[2020-11-13] MEDS: *HR* Enoxaparin 60 MG/0.6 ML SYRINGE SQ SCH ×2 (05:16→16:55)
[2020-11-13] MEDS: Budesonide/Formoterol 80/4.5 1 PUFF INH IH SCH ×2 (08:07→19:57)
[2020-11-13] MEDS: Insulin LISPRO 300 UNITS/3 ML VIAL SUBQ SCH ×4 (08:17→21:33)
[2020-11-13] MEDS: Venlafaxine XR (24 HR) 150 MG CAP.ER.24H PO SCH (10:17)
[2020-11-13] MEDS: Furosemide 20 MG TABLET PO SCH (10:17)
[2020-11-13] MEDS: BuPROPion XL (24 HR) 150 MG TABLET PO SCH (10:17)
[2020-11-13] MEDS: *HR* Digoxin 0.125 MG TABLET PO SCH (10:17)
[2020-11-13] MEDS: *HR* Metoprolol 5 MG/5 ML VIAL IVP PRN (16:55)
[2020-11-13] MEDS ORDERED: *HR* Warfarin 7.5 MG TABLET PO ONE (18:00)
[2020-11-13] MEDS: Furosemide 20 MG/2 ML VIAL IVP SCH (19:33)
[2020-11-13] MEDS ORDERED: NON-FORMULARY MEDICATION 1 EACH EACH (Alendronate Sodium [Fosamax] 70 MG) PO SCH (19:38)
[2020-11-14 04:34] LABS: Basophils % 0.6 %; Eosinophils # 0.3 K/mcL (0.0-0.6); Eosinophils % 4.9 %; Hematocrit 39.2 % (35.3-44.9); Hemoglobin 12.8 g/dL (11.5-15.4); Immature Granulocytes % 0.2 % (0-4); Lymphocytes # 2.2 K/mcL (0.6-4.6); Lymphocytes % 42.2 %; Mean Corpuscular HGB Conc 32.7 g/dL (31.6-35.5); Mean Corpuscular Hemoglobin 28.8 pg (28.0-33.3); Mean Corpuscular Volume 88.1 fL (83.0-100.0); Mean Platelet Volume 10.8 fL (9.4-12.4); Monocytes # 0.6 K/mcL (0.0-1.3); Monocytes % 11.6 %; Neutrophils # 2.1 K/mcL (1.6-8.9); Platelet Count 171 K/mcL (140-400); Red Blood Count 4.45 M/mcL (3.82-4.97); Segmented Neutrophils % 40.5 %; White Blood Count 5.3 K/mcL (4.3-11.1)
[2020-11-14 04:45] LABS: INR 2.8; Prothrombin Time 31.4 Seconds (9.4-12.1)
[2020-11-14 04:53] LABS: Albumin 3.4 g/dL (3.5-5.7); Bilirubin,Direct 0.1 mg/dL (0.0-0.2); Bilirubin,Indirect 0.5 mg/dL (0.0-1.0); Bilirubin,Total 0.6 mg/dL (0.3-1.0); Globulin 3.5 g/dL (2.4-3.5); Total Protein 6.9 g/dL (6.4-8.9)
[2020-11-14 04:54] LABS: Calcium 9.4 mg/dL (8.6-10.3); Magnesium 1.9 mg/dL (1.6-2.6); Potassium 4.1 mEq/L (3.5-5.1)
[2020-11-14] MEDS: *HR* Enoxaparin 60 MG/0.6 ML SYRINGE SQ SCH (05:29)
[2020-11-14] MEDS ORDERED: *HR* Glimepiride 2 MG TABLET PO SCH (08:00)
[2020-11-14] MEDS: Budesonide/Formoterol 80/4.5 1 PUFF INH IH SCH (08:16)
[2020-11-14] MEDS: Venlafaxine XR (24 HR) 150 MG CAP.ER.24H PO SCH (10:05)
[2020-11-14] MEDS: Furosemide 20 MG TABLET PO SCH (10:05)
[2020-11-14] MEDS: *HR* Digoxin 0.125 MG TABLET PO SCH (10:05)
[2020-11-14] MEDS: BuPROPion XL (24 HR) 150 MG TABLET PO SCH (10:05)
[2020-11-14] MEDS: Insulin LISPRO 300 UNITS/3 ML VIAL SUBQ SCH (10:08)
[2020-11-14 10:52] VITALS: BP 106/65
== END 2020-11-14 15:33 | disposition home or self-care (01) | DRG 291 ==
LOC: EMEROOARM 15:43 → 3ANU 15:43 → SUATTDRO 18:37 → 3ANU 19:43 → SUATTDRO 11-11 12:40
PROVIDERS: ADMIT Internal Medicine; ATTEND Internal Medicine

== ENCOUNTER 2020-11-29 12:24 | Inpatient (IN) ==
[2020-11-29] MEDS ORDERED: *HR* Metoprolol 5 MG/5 ML VIAL IVP ONE (13:03)
[2020-11-29] MEDS ORDERED: Amiodarone Premix 150 MG/100 ML BAG IVPB ONE (13:05)
[2020-11-29] MEDS ORDERED: Amiodarone Premix 360 MG/200 ML BAG IVC ONE (13:07)
[2020-11-29 13:23] LABS: Basophils # 0.1 K/mcL (0.0-0.2); Basophils % 0.7 %; Eosinophils # 0.1 K/mcL (0.0-0.6); Eosinophils % 1.4 %; Hematocrit 37.2 % (35.3-44.9); Hemoglobin 11.8 g/dL (11.5-15.4); Immature Granulocytes % 0.1 % (0-4); Lymphocytes % 23.3 %; Mean Corpuscular HGB Conc 31.7 g/dL (31.6-35.5); Mean Corpuscular Hemoglobin 29.1 pg (28.0-33.3); Mean Corpuscular Volume 91.9 fL (83.0-100.0); Mean Platelet Volume 10.7 fL (9.4-12.4); Monocytes # 0.7 K/mcL (0.0-1.3); Monocytes % 7.6 %; Neutrophils # 5.7 K/mcL (1.6-8.9); Platelet Count 206 K/mcL (140-400); Red Blood Count 4.05 M/mcL (3.82-4.97); Red Cell Distribution Width 14.1 % (11.5-14.5); Segmented Neutrophils % 66.9 %; White Blood Count 8.6 K/mcL (4.3-11.1)
[2020-11-29 13:35] LABS: INR 2.7
[2020-11-29 13:37] LABS: Activated Partial Thrombo Time 36.9 Seconds (26.0-36.0)
[2020-11-29 13:56] LABS: BUN/Creatinine Ratio 12 (6-26); Blood Urea Nitrogen 16 mg/dL (8-23); Carbon Dioxide 23 mEq/L (23-29); Chloride 103 mEq/L (98-107); Glucose 121 mg/dL (70-105); Osmolality,Calculated 288 (280-300); Potassium 3.9 mEq/L (3.5-5.1); Sodium 138 mEq/L (136-145); Troponin I < 0.03 ng/mL (< 0.04); eGFR For African Americans 49 (> 60); eGFR For Non-African Americans 40 (> 60)
[2020-11-29] MEDS ORDERED: Ondansetron 4 MG/2 ML VIAL IVP PRN (14:40)
[2020-11-29] MEDS ORDERED: Naloxone 0.4 MG/ML INJ IVP PRN (14:40)
[2020-11-29] MEDS ORDERED: Dextrose Gel 15 GM/37.5 ML TUBE PO PRN ×2 (14:44)
[2020-11-29] MEDS ORDERED: D5% in Water 1,000 ML IVC PRN (14:44)
[2020-11-29] MEDS ORDERED: *HR* Dextrose 50 % in Water (Vial) 50 ML VIAL IVP PRN (14:44)
[2020-11-29] MEDS ORDERED: Nitroglycerin 0.4 MG TAB.SUBL SL PRN (14:45)
[2020-11-29] MEDS ORDERED: Levalbuterol Neb 0.63 MG/3 ML IH PRN (14:46)
[2020-11-29 15:10] LABS: Alanine Aminotransferase 17 Units/L (7-52); Albumin 3.7 g/dL (3.5-5.7); Albumin/Globulin Ratio 1.1 (1.1-2.2); Alkaline Phosphatase 104 Units/L (34-104); Aspartate Amino Transferase 21 Units/L (13-39); Bilirubin,Direct 0.1 mg/dL (0.0-0.2); Bilirubin,Indirect 0.9 mg/dL (0.0-1.0); Globulin 3.4 g/dL (2.4-3.5); Total Protein 7.1 g/dL (6.4-8.9)
[2020-11-29] MEDS ORDERED: Warfarin perPT PO PRN (18:00)
[2020-11-29] MEDS ORDERED: *HR* Warfarin 2.5 MG TABLET PO ONE (18:00)
[2020-11-29] MEDS: Amiodarone Premix 360 MG/200 ML BAG IVC SCH (18:51)
[2020-11-29] MEDS: Insulin LISPRO 300 UNITS/3 ML VIAL SUBQ SCH ×2 (18:59→21:46)
[2020-11-29] MEDS: Budesonide/Formoterol 80/4.5 1 PUFF INH IH SCH (20:12)
[2020-11-30 01:21] LABS: Basophils % 0.6 %; Eosinophils # 0.1 K/mcL (0.0-0.6); Eosinophils % 1.7 %; Hematocrit 33.5 % (35.3-44.9); Hemoglobin 10.8 g/dL (11.5-15.4); Immature Granulocytes % 0.1 % (0-4); Lymphocytes # 2.2 K/mcL (0.6-4.6); Lymphocytes % 30.3 %; Mean Corpuscular HGB Conc 32.2 g/dL (31.6-35.5); Mean Corpuscular Hemoglobin 28.8 pg (28.0-33.3); Mean Corpuscular Volume 89.3 fL (83.0-100.0); Mean Platelet Volume 10.8 fL (9.4-12.4); Monocytes # 0.5 K/mcL (0.0-1.3); Monocytes % 6.9 %; Neutrophils # 4.3 K/mcL (1.6-8.9); Platelet Count 186 K/mcL (140-400); Red Blood Count 3.75 M/mcL (3.82-4.97); Red Cell Distribution Width 14.2 % (11.5-14.5); Segmented Neutrophils % 60.4 %; White Blood Count 7.1 K/mcL (4.3-11.1)
[2020-11-30] MEDS ORDERED: Simethicone 80 MG TAB.CHEW PO PRN (01:26)
[2020-11-30 01:32] LABS: INR 3.2; Prothrombin Time 35.5 Seconds (9.4-12.1)
[2020-11-30 01:49] LABS: Calcium 8.8 mg/dL (8.6-10.3); Magnesium 1.9 mg/dL (1.6-2.6); Phosphorous 3.7 mg/dL (2.7-4.5); Potassium 3.8 mEq/L (3.5-5.1)
[2020-11-30 01:50] LABS: Albumin 3.2 g/dL (3.5-5.7); Bilirubin,Direct 0.1 mg/dL (0.0-0.2); Bilirubin,Indirect 0.5 mg/dL (0.0-1.0); Bilirubin,Total 0.6 mg/dL (0.3-1.0); Globulin 3.1 g/dL (2.4-3.5); Total Protein 6.3 g/dL (6.4-8.9)
[2020-11-30] MEDS: Amiodarone Premix 360 MG/200 ML BAG IVC SCH (06:19)
[2020-11-30] MEDS: Insulin LISPRO 300 UNITS/3 ML VIAL SUBQ SCH ×4 (07:43→20:23)
[2020-11-30] MEDS ORDERED: Furosemide 20 MG TABLET PO SCH (09:00)
[2020-11-30] MEDS: Cyanocobalamin (B-12) 1,000 MCG TABLET PO SCH (09:24)
[2020-11-30] MEDS: BuPROPion XL (24 HR) 150 MG TABLET PO SCH (09:24)
[2020-11-30] MEDS: Venlafaxine XR (24 HR) 150 MG CAP.ER.24H PO SCH (09:24)
[2020-11-30] MEDS: Cholecalciferol (D-3) 1,000 UNIT (25MCG) TABLET PO SCH (09:25)
[2020-11-30] MEDS: *HR* Digoxin 0.5 MG/2 ML AMPUL IVP SCH ×2 (10:01→16:21)
[2020-11-30] MEDS: Budesonide/Formoterol 80/4.5 1 PUFF INH IH SCH ×2 (11:01→20:19)
[2020-11-30] MEDS: Acetaminophen 325 MG TABLET PO PRN ×2 (15:34→23:06)
[2020-11-30] MEDS: carvediloL 6.25 MG TABLET PO SCH (16:53)
[2020-11-30] MEDS ORDERED: *HR* Digoxin 0.5 MG/2 ML AMPUL IVP ONE (21:00)
[2020-12-01 03:08] LABS: INR 2.2; Prothrombin Time 25.1 Seconds (9.4-12.1)
[2020-12-01 07:30] VITALS: BP 111/56
[2020-12-01] MEDS: Budesonide/Formoterol 80/4.5 1 PUFF INH IH SCH (07:59)
[2020-12-01] MEDS: Cyanocobalamin (B-12) 1,000 MCG TABLET PO SCH (08:14)
[2020-12-01] MEDS: Cholecalciferol (D-3) 1,000 UNIT (25MCG) TABLET PO SCH (08:14)
[2020-12-01] MEDS: carvediloL 6.25 MG TABLET PO SCH (08:14)
[2020-12-01] MEDS: Venlafaxine XR (24 HR) 150 MG CAP.ER.24H PO SCH (08:14)
[2020-12-01] MEDS: Insulin LISPRO 300 UNITS/3 ML VIAL SUBQ SCH (08:14)
[2020-12-01] MEDS: BuPROPion XL (24 HR) 150 MG TABLET PO SCH (08:14)
[2020-12-01] MEDS ORDERED: *HR* Digoxin 0.125 MG TABLET PO SCH (09:00)
== END 2020-12-01 11:34 | disposition home or self-care (01) | DRG 309 ==
LOC: EMEROOARM 12:24 → 2NNU 12:24
PROVIDERS: ADMIT Internal Medicine; ATTEND Internal Medicine

== ENCOUNTER 2021-01-06 17:43 | Observation (INO) ==
[2021-01-06] MEDS ORDERED: 0.9 % Sodium Chloride 1,000 ML IVC ONE (18:13)
[2021-01-06] MEDS ORDERED: *HR* Metoprolol 5 MG/5 ML VIAL IVP ONE (18:15)
[2021-01-06] MEDS ORDERED: Ondansetron 4 MG/2 ML VIAL IVP STA (18:17)
[2021-01-06 18:59] LABS: Basophils % 0.5 %; Hematocrit 34.8 % (35.3-44.9); Hemoglobin 11.4 g/dL (11.5-15.4); Immature Granulocytes % 0.5 % (0-4); Lymphocytes # 0.6 K/mcL (0.6-4.6); Lymphocytes % 7.8 %; Mean Corpuscular HGB Conc 32.8 g/dL (31.6-35.5); Mean Corpuscular Hemoglobin 29.4 pg (28.0-33.3); Mean Corpuscular Volume 89.7 fL (83.0-100.0); Mean Platelet Volume 10.2 fL (9.4-12.4); Monocytes # 0.4 K/mcL (0.0-1.3); Monocytes % 4.6 %; Platelet Count 114 K/mcL (140-400); Red Blood Count 3.88 M/mcL (3.82-4.97); Red Cell Distribution Width 13.3 % (11.5-14.5); Segmented Neutrophils % 86.6 %; White Blood Count 8.1 K/mcL (4.3-11.1)
[2021-01-06 19:06] LABS: INR 2.3; Prothrombin Time 26.2 Seconds (9.4-12.1)
[2021-01-06 19:42] LABS: Alanine Aminotransferase 32 Units/L (7-52); Albumin 3.6 g/dL (3.5-5.7); Albumin/Globulin Ratio 1.2 (1.1-2.2); Alkaline Phosphatase 96 Units/L (34-104); Aspartate Amino Transferase 39 Units/L (13-39); BUN/Creatinine Ratio 15 (6-26); Bilirubin,Total 1.9 mg/dL (0.3-1.0); Blood Urea Nitrogen 14 mg/dL (8-23); Calcium 8.4 mg/dL (8.6-10.3); Carbon Dioxide 23 mEq/L (23-29); Chloride 102 mEq/L (98-107); Globulin 3.1 g/dL (2.4-3.5); Glucose 196 mg/dL (70-105); Lipase < 3 Units/L (11-82); Osmolality,Calculated 282 (280-300); Potassium 4.5 mEq/L (3.5-5.1); Sodium 133 mEq/L (136-145); Total Protein 6.7 g/dL (6.4-8.9); Troponin I 0.07 ng/mL (< 0.04); eGFR For African Americans > 60 (> 60); eGFR For Non-African Americans 57 (> 60)
[2021-01-06 20:16] LABS: Digoxin 0.9 ng/mL (0.8-2.0)
[2021-01-06] MEDS ORDERED: *HR* Heparin 5,000 UNIT/ML VIAL IVP PRN ×4 (20:57→21:12)
[2021-01-06] MEDS ORDERED: Heparin 25,000UNIT/250ML 1/2NS 25,000 UNIT/250 ML IV.SOLN IVC SCH ×2 (21:00→21:15)
[2021-01-07] MEDS ORDERED: Melatonin 3 MG TABLET PO PRN (00:51)
[2021-01-07] MEDS ORDERED: Ondansetron 4 MG/2 ML VIAL IVP PRN (00:51)
[2021-01-07] MEDS ORDERED: Acetaminophen 325 MG TABLET PO PRN (00:51)
[2021-01-07] MEDS ORDERED: Naloxone 0.4 MG/ML INJ IVP PRN (00:51)
[2021-01-07] MEDS ORDERED: *HR* Metoprolol 5 MG/5 ML VIAL IVP ONE ×2 (01:30→01:48)
[2021-01-07] MEDS ORDERED: *HR* Promethazine 25 MG/ML VIAL IM PRN (01:31)
[2021-01-07] MEDS ORDERED: Acetaminophen IV 1,000 MG/100 ML BAG IVPB ONE (01:41)
[2021-01-07 03:49] LABS: Eosinophils % 0.1 %; Red Cell Distribution Width 13.2 % (11.5-14.5)
[2021-01-07 03:52] LABS: Basophils % 0.6 %; Hematocrit 31.1 % (35.3-44.9); Hemoglobin 10.4 g/dL (11.5-15.4); Immature Granulocytes % 0.4 % (0-4); Immature Platelets 4.2 % (1.1-6.1); Lymphocytes # 0.9 K/mcL (0.6-4.6); Lymphocytes % 12.2 %; Mean Corpuscular HGB Conc 33.4 g/dL (31.6-35.5); Mean Corpuscular Hemoglobin 29.5 pg (28.0-33.3); Mean Corpuscular Volume 88.1 fL (83.0-100.0); Monocytes # 0.5 K/mcL (0.0-1.3); Neutrophils # 5.6 K/mcL (1.6-8.9); Red Blood Count 3.53 M/mcL (3.82-4.97); Segmented Neutrophils % 79.7 %
[2021-01-07 03:55] LABS: Heparin anti-factor XA UFH 0.55 IU/mL (0.30-0.70); INR 2.1; Prothrombin Time 24.3 Seconds (9.4-12.1)
[2021-01-07 04:13] LABS: Alanine Aminotransferase 28 Units/L (7-52); Albumin 3.3 g/dL (3.5-5.7); Albumin/Globulin Ratio 1.1 (1.1-2.2); Alkaline Phosphatase 83 Units/L (34-104); Aspartate Amino Transferase 30 Units/L (13-39); BUN/Creatinine Ratio 16 (6-26); Bilirubin,Direct 0.7 mg/dL (0.0-0.2); Bilirubin,Indirect 1.4 mg/dL (0.0-1.0); Bilirubin,Total 2.1 mg/dL (0.3-1.0); Blood Urea Nitrogen 16 mg/dL (8-23); Calcium 7.8 mg/dL (8.6-10.3); Carbon Dioxide 20 mEq/L (23-29); Chloride 102 mEq/L (98-107); Glucose 164 mg/dL (70-105); Magnesium 1.5 mg/dL (1.6-2.6); Osmolality,Calculated 279 (280-300); Phosphorous 2.6 mg/dL (2.7-4.5); Potassium 4.2 mEq/L (3.5-5.1); Sodium 132 mEq/L (136-145); Total Protein 6.3 g/dL (6.4-8.9); Troponin I 0.09 ng/mL (< 0.04); eGFR For African Americans > 60 (> 60); eGFR For Non-African Americans 53 (> 60)
[2021-01-07 04:54] LABS: Platelet Count 97 K/mcL (140-400)
[2021-01-07] MEDS ORDERED: *HR* Digoxin 0.125 MG TABLET PO SCH (07:30)
[2021-01-07] MEDS ORDERED: Dextrose Gel 15 GM/37.5 ML TUBE PO PRN ×2 (07:38)
[2021-01-07] MEDS ORDERED: *HR* Dextrose 50 % in Water (Vial) 50 ML VIAL IVP PRN (07:38)
[2021-01-07] MEDS ORDERED: D5% in Water 1,000 ML IVC PRN (07:38)
[2021-01-07] MEDS ORDERED: carvediloL 6.25 MG TABLET PO SCH (08:00)
[2021-01-07] MEDS ORDERED: carvediloL 6.25 MG TABLET PO ONE (13:54)
[2021-01-07] MEDS ORDERED: *HR* Warfarin 5 MG TABLET PO SCH (14:15)
[2021-01-07] MEDS: Acetaminophen 325 MG TABLET PO PRN (14:16)
[2021-01-07] MEDS: Furosemide 20 MG TABLET PO SCH (14:28)
[2021-01-07] MEDS: carvediloL 6.25 MG TABLET PO SCH (17:05)
[2021-01-07] MEDS ORDERED: Insulin DETEMIR 100 UNIT/ML X5UNITS SUBQ SCH (21:00)
[2021-01-08 05:06] LABS: Bilirubin,Urine Negative (Negative); Blood,Urine Negative (Negative); Clarity,Urine Clear (Clear); Color,Urine Yellow (Yellow); Glucose,Urine (UA) Normal (Normal); Hyaline Casts,Urine Few per lpf (None Seen); Ketones,Urine Negative (Negative); Leukocyte Esterase,Urine Trace (Negative); Mucus,Urine Few per lpf (None-Few); Nitrite,Urine Negative (Negative); Protein,Urine Trace mg/dL (Neg-Trace); RBC,Urine 0-3 per hpf (0-3); Specific Gravity,Urine 1.013 (1.010-1.025); Squamous Epithelial Cell,Urine Few per hpf (None-Few); WBC,Urine 0-3 per hpf (0-3)
[2021-01-08 05:52] LABS: Hemoglobin 11.2 g/dL (11.5-15.4); Mean Corpuscular HGB Conc 32.9 g/dL (31.6-35.5); Mean Corpuscular Hemoglobin 29.8 pg (28.0-33.3); Mean Corpuscular Volume 90.4 fL (83.0-100.0); Mean Platelet Volume 11.2 fL (9.4-12.4); Platelet Count 106 K/mcL (140-400); Red Blood Count 3.76 M/mcL (3.82-4.97); Red Cell Distribution Width 13.3 % (11.5-14.5); White Blood Count 7.4 K/mcL (4.3-11.1)
[2021-01-08 06:19] LABS: Albumin 3.4 g/dL (3.5-5.7); Albumin/Globulin Ratio 1.1 (1.1-2.2); Bilirubin,Direct 0.4 mg/dL (0.0-0.2); Bilirubin,Indirect 1.4 mg/dL (0.0-1.0); Bilirubin,Total 1.8 mg/dL (0.3-1.0); Globulin 3.1 g/dL (2.4-3.5); Magnesium 2.1 mg/dL (1.6-2.6); Potassium 3.9 mEq/L (3.5-5.1); Total Protein 6.5 g/dL (6.4-8.9); Troponin I 0.08 ng/mL (< 0.04)
[2021-01-08 06:37] VITALS: BP 145/94
[2021-01-08] MEDS: Acetaminophen 325 MG TABLET PO PRN (06:44)
[2021-01-08] MEDS: carvediloL 6.25 MG TABLET PO SCH (08:04)
[2021-01-08] MEDS: Furosemide 20 MG TABLET PO SCH (08:05)
[2021-01-08] MEDS ORDERED: Venlafaxine XR (24 HR) 150 MG CAP.ER.24H PO SCH (09:00)
[2021-01-11] MEDS ORDERED: *HR* Warfarin 2.5 MG TABLET PO SCH (14:07)
== END 2021-01-08 12:02 | disposition home or self-care (01) ==
LOC: 2NENU 17:43 → EMEROOARM 17:43 → SUATTDRO 22:26 → 2NENU 23:13
PROVIDERS: ADMIT Internal Medicine; ATTEND Internal Medicine